=== PATIENT | male | born 1950 | race Caucasian/White ===

== ENCOUNTER 2016-06-24 08:58 | Inpatient (IN) | payer MEDICARE ==
[2016-06-24] VITALS (7 sets, daily range): BP systolic 108–142; BP diastolic 70–82
[~2016-06-24] VITALS: Ht 185.4 cm; Wt 136.1 kg
[~2016-06-24 08:58] MED LIST: ALLO300T2 PO; ALLP100T PO; BSC10SU PR; CLON0.5T3 PO; CLON1TAB36 PO; CPR500T PO; EZET10TA5 PO; FINA5TAB PO; GABA300C PO; GABA600T2 PO; GLIP5TAB26 PO; HYDR-3714 PO; HYDR1TAB8 OP; IBUP-15 PO; LOSA100T16 PO; LOVA40TA2 PO; MELO-195 PO; METF500T8 PO; METH750T3 PO; ONDAN4ODT PO; PANT40SU PO; PNT40TEC PO; POLY17PO23 PO; SILO8CAP PO; SITA100T PO; TIZA4TAB55 PO; TIZANDINE; TMSL.4C PO; TRAM1TAB7 PO
[2016-06-24 09:17] LABS: BASOPHILS % (AUTO) 0 % (0-10); EOSINOPHILS # (AUTO) 0.1 10^3/uL (0.0-0.3); EOSINOPHILS % (AUTO) 1 % (0-10); LYMPHOCYTES # (AUTO) 0.5 X 10^3 (1.0-4.0); LYMPHOCYTES % (AUTO) 4 % (12-44); MEAN CORPUSCULAR HEMOGLOBIN 31 PG (25-34); MEAN CORPUSCULAR HGB CONC 34 G/DL (32-36); MEAN CORPUSCULAR VOLUME 90 FL (80-99); MEAN PLATELET VOLUME 11.7 FL (7.4-10.4); MONOCYTES # (AUTO) 1.1 X 10^3 (0.0-1.0); MONOCYTES % (AUTO) 9 % (0-12); NEUTROPHILS # (AUTO) 10.9 X 10^3 (1.8-7.8); NEUTROPHILS % (AUTO) 86 % (42-75); PLATELET COUNT 281 10^3/uL (130-400); RED BLOOD COUNT 4.89 10^6/uL (4.35-5.85); RED CELL DISTRIBUTION WIDTH 17.1 % (10.0-14.5); WHITE BLOOD COUNT 12.6 10^3/uL (4.3-11.0)
[2016-06-24] MEDS ORDERED: HEParin DRIP 25000 UNIT/500ML 500 ML IV ONE ×2 (09:25)
[2016-06-24] MEDS ORDERED: CLOPIDOGREL 300 MG (PLAVIX) TABLET PO ONE ×2 (09:26→09:30)
[2016-06-24] MEDS ORDERED: HEParin 1000 UNIT/ML (10ML VIAL) FOR BOLUS IV ONE (09:30)
[2016-06-24] MEDS ORDERED: fentaNYL INJECTION 100 MCG/2 ML AMP IVP ONE (09:30)
[2016-06-24] MEDS ORDERED: ONDANSETRON 4 MG/2 ML (SDV) Z0FRAN IVP ONE (09:30)
[2016-06-24] MEDS ORDERED: METO-272 PO (09:40)
[2016-06-24] MEDS ORDERED: ASPI-586 PO (09:40)
[2016-06-24] MEDS ORDERED: TAMS0.4C98 PO (09:40)
[2016-06-24] MEDS ORDERED: METF-479 PO (09:40)
--- NOTE | 2016-06-24 09:41 | ED Chest Pain ---
General Chief Complaint: Chest Pain Stated Complaint: CHEST PAIN Source: patient, EMS, old records History of Present Illness Time seen by provider: 08:48 Initial Comments This 66-year-old gentleman with known coronary artery disease presents to the emergency room with chest pain. He woke this morning at about 03:00 with vomiting and diarrhea. This is not unusual for him as he has gastroparesis and takes metformin. However, between 06:00 and 07:00 he developed pain across his lower chest. Pain radiated into the upper back and neck. He has an unusual rhythm as captured by EMS. It appears to be a combination of sinus tachycardia and very frequent PVCs. He was given nitroglycerin by EMS without resolution of pain. He also received morphine. Aspirin was given and promptly vomited. A second dose was given which he kept down. Patient had a cardiac catheterization at this facility in 2013 showing significant multivessel disease. He was transferred to [place] for evaluation for CABG. CABG was not performed but he has multiple stents. Patient reports four total stents. Pain on assessment is rated as 5 or 6 and he has minimal residual nausea. Patient has multiple comorbidities including diabetes, hypertension, and hyperlipidemia. Allergies and Home Medications Allergies Coded Allergies: No Known Drug Allergies (Unverified , 11/02/11) Home Medications Allopurinol 300 Mg Tab 300 MG PO DAILY (Reported) Aspirin 81 Mg Tablet.dr 81 MG PO DAILY (Reported) Clonazepam 1 Mg Tablet 1 MG PO HS (Reported) Ezetimibe 10 Mg Tablet 10 MG PO HS (Reported) Finasteride 5 Mg Tablet 5 MG PO DAILY (Reported) Gabapentin 300 Mg Capsule 300 MG PO TID (Reported) Glipizide 5 Mg Tab.er.24 5 MG PO DAILY (Reported) Hydrocodone Bit/Acetaminophen 1 Tab Tablet 1 TAB PO BID PRN PRN PAIN (Reported) NEEDED FOR PAIN 5-325MG TABLET Losartan Potassium 100 Mg Tablet 100 MG PO DAILY (Reported) Lovastatin 40 Mg Tablet 40 MG PO HS (Reported) Meloxicam 15 Mg Tablet 15 MG PO DAILY (Reported) Metformin HCl 1,000 Mg Tab.er.24 1,000 MG PO BID (Reported) PT. TAKES IN THE EVENING Metformin Hcl 500 Mg Tab.sr.24h 1,000 MG PO BID (Reported) TAKES 2 (500MG) TABLETS TWICE DAILY Methocarbamol 750 Mg Tablet 750 MG PO Q6H PRN PRN MUSCLE SPASMS (Reported) NEEDED FOR MUSCLE SPASMS Metoprolol Succinate 50 Mg Tab.er.24h #90 50 MG PO DAILY (Reported) Pantoprazole Sodium 40 Mg Tablet.dr 40 MG PO DAILY (Reported) Sitagliptin Phosphate 100 Mg Tablet 100 MG PO DAILY (Reported) Tamsulosin HCl 0.4 Mg Cap 0.4 MG PO HS (Reported) Tizanidine Hcl 4 Mg Tablet 4 MG PO BID PRN PRN MUSCLE SPASMS (Reported) NEEDED FOR MUSCLE SPASMS Review of Systems Constitutional: no symptoms reported EENTM: No Symptoms Reported Respiratory: No Symptoms Reported Cardiovascular: See HPI Gastrointestinal: See HPI Genitourinary: No Symptoms Reported Musculoskeletal: see HPI Skin: no symptoms reported Psychiatric/Neurological: No Symptoms Reported Endocrine: No Symptoms Reported Past Roadyms-Zerpmz-Qzstfb Hx Immunizations Up To Date Date of Influenza Vaccine: Jan 30, 2013 Surgeries HX Surgeries: Yes (lumbar fusion L2-S1 06/07/08, lumbar disk removed 1985) Surgeries: Coronary Stent Respiratory Hx Respiratory Disorders: No Cardiovascular Hx Cardiac Disorders: Yes Cardiac Disorders: Coronary Artery Disease, High Cholesterol, Hypertension Neurological Hx Neurological Disorders: Yes (arachnoiditis causing frequent cramping, gastroparesis) Genitourinary Hx Genitourinary Disorders: Yes Genitourinary Disorders: Kidney Stones Gastrointestinal Hx Gastrointestinal Disorders: Yes (gastroparesis) Gastrointestinal Disorders: Gastroesophageal Reflux, Ulcer Musculoskeletal Hx Musculoskeletal Disorders: Yes Musculoskeletal Disorders: Chronic Back Pain Endocrine Hx Endocrine Disorders: Yes Endocrine Disorders: Diabetes, Non-Insulin dep HEENT HX ENT Disorders: No Cancer Hx Cancer: No Psychosocial Behavioral Health Disorders: Depression Integumentary HX Skin/Integumentary Disorder: No Blood Transfusions Hx Blood Disorders: No Family Medical History Significant Family History: No Pertinent Family Hx Family Medial History: Family history: Cardiovascular disease Family history: Hypertension 03 MOTHER Family history: Osteoporosis 03 MOTHER Stroke 03 FATHER Physical Exam Vital Signs Vital Sign - Last 12Hours Capillary Refill : General Appearance: No Apparent Distress WD/WN HEENT: PERRL/EOMI Normal ENT Inspection Neck: Normal Inspection Respiratory: Lungs Clear Normal Breath Sounds No Accessory Muscle Use No Respiratory Distress Cardiovascular: No Edema No Murmur Irregularly Irregular Tachycardia Gastrointestinal: Normal Bowel Sounds Non Tender Soft Extremity: Normal Inspection No Pedal Edema Neurologic/Psychiatric: Alert Oriented x3 No Motor/Sensory Deficits Normal 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 Norm as Tested Skin: Normal Color Warm/Dry Progress/Results/Core Measures Results/Orders Lab Results Laboratory Tests Test 06/24/16 09:08 06/24/16 09:30 Range/Units Anisocytosis SLIGHT Band Neutrophils 17 % Basophils # (Auto) 0.0 0.0-0.1 10^3/uL Basophils % (Manual) 0 % Basophils (%) (Auto) 0 0-10 % Eosinophils # (Auto) 0.1 0.0-0.3 10^3/uL Eosinophils % (Manual) 0 % Eosinophils (%) (Auto) 1 0-10 % Hematocrit 44 40-54 % Hemoglobin 14.9 13.3-17.7 G/DL Lymphocytes # (Auto) 0.5 L 1.0-4.0 X 10^3 Lymphocytes % (Manual) 4 % Lymphocytes (%) (Auto) 4 L 12-44 % Mean Corpuscular Hemoglobin 31 25-34 PG Mean Corpuscular Hemoglobin Concent 34 32-36 G/DL Mean Corpuscular Volume 90 80-99 FL Mean Platelet Volume 11.7 H 7.4-10.4 FL Monocytes # (Auto) 1.1 H 0.0-1.0 X 10^3 Monocytes % (Manual) 4 % Monocytes (%) (Auto) 9 0-12 % Neutrophils # (Auto) 10.9 H 1.8-7.8 X 10^3 Neutrophils % (Manual) 75 % Neutrophils (%) (Auto) 86 H 42-75 % Platelet Count 281 130-400 10^3/uL Poikilocytosis SLIGHT Red Blood Count 4.89 4.35-5.85 10^6/uL Red Cell Distribution Width 17.1 H 10.0-14.5 % White Blood Count 12.6 H 4.3-11.0 10^3/uL Activated Partial Thromboplast Time 20 L 24-35 SEC Alanine Aminotransferase (ALT/SGPT) 46 0-55 U/L Albumin 4.1 3.2-4.5 G/DL Alkaline Phosphatase 76 40-136 U/L Anion Gap 12 5-14 MMOL/L Aspartate Amino Transf (AST/SGOT) 40 H 5-34 U/L BUN/Creatinine Ratio 20 Blood Urea Nitrogen 31 H 7-18 MG/DL Calcium Level 8.9 8.5-10.1 MG/DL Carbon Dioxide Level 17 L 21-32 MMOL/L Chloride Level 111 H 98-107 MMOL/L Creatinine 1.56 H 0.60-1.30 MG/DL Estimat Glomerular Filtration Rate 45 Glucose Level 255 H 70-105 MG/DL INR Comment 1.0 0.8-1.4 Magnesium Level 1.6 L 1.8-2.4 MG/DL Myoglobin 502.2 H 10.0-92.0 NG/ML Potassium Level 4.8 3.6-5.0 MMOL/L Prothrombin Time 13.3 12.2-14.7 SEC Sodium Level 140 135-145 MMOL/L Total Bilirubin 0.5 0.1-1.0 MG/DL Total Protein 7.0 6.4-8.2 G/DL Troponin I < 0.30 <0.30 NG/ML My Orders Orders-BELEN WYLIE MD Cbc With Automated Diff (06/24/16 09:06) Magnesium (06/24/16 09:06) Chest 1 View, Ap/Pa Only (06/24/16 09:06) Ekg Tracing (06/24/16 09:06) Cardiac Profile 1 (06/24/16 09:06) Comprehensive Metabolic Panel (06/24/16 09:06) Myoglobin Serum (06/24/16 09:06) Protime With Inr (06/24/16 09:06) Partial Thromboplastin Time (06/24/16 09:06) O2 (06/24/16 09:06) Monitor-Rhythm Ecg Trace Only (06/24/16 09:06) Lipid Panel (06/25/16 06:00) Saline Lock/Iv-Start (06/24/16 09:06) Manual Differential (06/24/16 09:08) Heparin Drip 23959 Unit/500ml (Heparin (06/24/16 09:25) Heparin (Bolus Per Protocol) (Heparin (B (06/24/16 09:30) Clopidogrel Tablet (Plavix Tablet) (06/24/16 09:30) Ekg Tracing (06/24/16:26) Heparin Drip [id number] Unit/500ml (Heparin (06/24/16 09:25) Ondansetron Injection (Zofran Injectio (06/24/16 09:30) Clopidogrel Tablet (Plavix Tablet) (06/24/16 09:26) Fentanyl Injection (Sublimaze Injection (06/24/16 09:30) Lidocaine 1% Injection (Xylocaine 1% Inj (06/24/16 10:27) Midazolam Injection (Versed Injection) (06/24/16 10:27) Fentanyl Injection (Sublimaze Injection (06/24/16 10:27) Heparin (Bolus Per Protocol) (Heparin (B (06/24/16 10:27) Ns Iv 1000 Ml (Sodium Chloride 0.9%) (06/24/16 10:27) Heparin ([facility]) (Heparin ([facility])) (06/24/16 10:27) Medications Given in ED Current Medications Medications Dose Ordered Sig/Kamari Route Start Time Stop Time Status Last Admin Dose Admin Clopidogrel Bisulfate 600 mg ONCE ONCE PO 06/24/16 09:30 06/24/16 09:31 DC 06/24/16 09:37 600 MG Fentanyl Citrate 75 mcg ONCE ONCE IVP 06/24/16 09:30 06/24/16 09:31 DC 06/24/16 09:43 75 MCG Heparin Sodium (Porcine) HEPARIN FULL PROTOC... ONCE ONCE IV 06/24/16 09:30 06/24/16 09:31 DC 06/24/16 09:43 5,000 UNIT Heparin Sodium/ Dextrose 500 ml @ 0 mls/hr Q0M ONCE IV 06/24/16 09:25 06/24/16 09:27 DC 06/24/16 09:35 0 MLS/HR Vital Signs/I&O Vital Sign - Last 12Hours 06/24/16 06/24/16 06/24/16 09:03 09:03 09:03 Temp 98.7 Pulse 69 Resp 18 B/P Pulse Ox 97 97 O2 Delivery Nasal Cannula Nasal Cannula O2 Flow Rate 2 2 2 Progress Note #1: Time: 09:35 Progress Note Patient has been seen and evaluated. Rhythm strips from EMS and EKGs in the ER have been reviewed. Patient has an unusual rhythm that appears to be a combination of sinus tachycardia and very frequent PVCs. Rhythm has been reviewed with Dr. Berg who plans to present to the emergency room soon. Patient received morphine, Zofran, and aspirin by EMS. He still rates his pain as 5 or 6. Fentanyl has been ordered for further pain management. At Dr. Berg's request, the patient will be given Plavix 600 mg as well as started on a heparin drip. An additional's dose of Zofran will also be given. Progress Note #2: Time: 10:24 Progress Note Initial troponin was negative. Dr. Berg has been to the emergency room to evaluate patient and discuss options. Plan is for transfer to [facility] for angiography. Patient is at high risk with his heart disease, comorbidities, and unusual rhythm issues in the context of persistent chest pain. Patient consented after explanation of risks and benefits by Dr. Berg. Patient has been in persistent sinus tachycardia for at least 30 minutes. ECG EKG #1: EKG Time: 09:03 Rhythm: S.Tach Comment Sinus tachycardia with frequent PVCs. No definitive ST elevation or depression. EKG #2: EKG Time: 09:14 Rate: 77 Comment Probable sinus rhythm with frequent PVCs. No specific ST elevation or depression. Diagnostic Imaging Diagonstic Imaging: Xray Plain Films/CT/US/NM/MRI: chest Comments NAME: [facility] REC#: [id number] PT STATUS: REG ER : 1950 PHYSICIAN: BELEN WYLIE MD ADMIT DATE: 06/24/16/ER Signed Date of Exam: 06/24/16 CHEST 1 VIEW, AP/PA ONLY INDICATION: Chest wall pain Frontal chest obtained at 9:32 a.m. and compared to 05/18/13. Heart and mediastinal silhouette are normal in appearance. The lungs are clear. There is no pneumothorax or pleural fluid. IMPRESSION: Negative chest. Dictated by: Dictated on workstation # [id number] Dict: 06/24/16 0939 Trans: 06/24/16 0957 CONCHA [id number] Interpreted by: JOSE FREDERICK MD Electronically signed by:JOSE FREDERICK MD 06/24/16 0959 Departure Impression Impression: Primary Impression: Chest pain Qualified Code: R07.9 - Chest pain, unspecified Additional Impressions: Sinus tachycardia PVCs (premature ventricular contractions) Coronary artery disease Qualified Code: I25.10 - Atherosclerotic heart disease of [place] coronary artery without angina pectoris Disposition: ADMITTED INPATIENT Condition: Stable Decision to Admit Reason: Admit from ER (General) Decision to Admit/Date: Jun 24, 2016 Time/Decision to Admit Time: 09:00 Departure-Patient Inst. Referrals: RINKU FULLER DO (PCP/Family) Primary Care Physician BELEN WYLIE MD Jun 24, 2016 09:41
[2016-06-24 09:49] LABS: PROTHROMBIN TIME PATIENT 13.3 SEC (12.2-14.7)
[2016-06-24 09:54] LABS: ALANINE AMINOTRANSFERASE 46 U/L (0-55); ALBUMIN 4.1 G/DL (3.2-4.5); ANION GAP 12 MMOL/L (5-14); ASPARTATE AMINO TRANSFERASE 40 U/L (5-34); BILIRUBIN,TOTAL 0.5 MG/DL (0.1-1.0); BLOOD UREA NITROGEN 31 MG/DL (7-18); BUN/CREATININE RATIO 20; CALCIUM 8.9 MG/DL (8.5-10.1); CARBON DIOXIDE 17 MMOL/L (21-32); CHLORIDE 111 MMOL/L (98-107); CREATININE SERUM 1.56 MG/DL (0.60-1.30); GFR ESTIMATED 45; GLUCOSE 255 MG/DL (70-105); MAGNESIUM 1.6 MG/DL (1.8-2.4); POTASSIUM 4.8 MMOL/L (3.6-5.0); SODIUM 140 MMOL/L (135-145)
[2016-06-24 10:01] LABS: MYOGLOBIN SERUM 502.2 NG/ML (10.0-92.0)
[2016-06-24 10:07] LABS: ANISOCYTOSIS SLIGHT; BAND NEUTROPHILS 17 %; BASOPHILS % (MANUAL) 0 %; EOSINOPHILS % (MANUAL) 0 %; LYMPHOCYTES % (MANUAL) 4 %; NEUTROPHILS % (MANUAL) 75 %; POIKILOCYTOSIS SLIGHT
[2016-06-24] MEDS ORDERED: HEParin 1000 UNIT/ML (10ML VIAL) FOR BOLUS ONE (10:27)
[2016-06-24] MEDS ORDERED: MIDAZOLAM 5 MG/5 ML (VERSED) VIAL ONE (10:27)
[2016-06-24] MEDS ORDERED: HEParin (CATH LAB) 2,000 ML IV ONE (10:27)
[2016-06-24] MEDS ORDERED: NS IV 1000 ML 1,000 ML ONE (10:27)
[2016-06-24] MEDS ORDERED: LIDOCAINE 1% INJ 20 ML (XYLOCAINE) VIAL ONE (10:27)
[2016-06-24] MEDS ORDERED: fentaNYL INJECTION 100 MCG/2 ML AMP ONE (10:27)
[2016-06-24] MEDS ORDERED: VERAPAMIL 5 MG/2 ML (CALAN) VIAL IV ONE (10:30)
[2016-06-24] MEDS ORDERED: NITROGLYCERIN DRIP 25 MG/D5W 250 ML IV ONE (10:30)
--- NOTE | 2016-06-24 10:31 | Cardiac Procedure Note-CS/ASA ---
Pre-Procedure Note Pre-Op Procedure Note H&P Reviewed The H&P was reviewed, patient examined and no changes noted. Date H&P Reviewed: Jun 24, 2016 Time H&P Reviewed: : Conscious Sedation Pre-Proced Time Reviewed: ASA Class: 3 Airway Mallampati Classification: ([place] appropriate class) I. II. III, IV Lungs Heart ASA score ASA 1: a normal healthy patient ASA 2: a patient with a mild systemic disease (mid diabetes, controlled hypertension, obesity ASA 3: a patient with a severe systemic disease that limits activity (angina , COPD, prior Myocardial infarction) ASA 4: a patient with an incapacitating disease that is a constant threat to life (CHF, renal failure) ASA 5: a moribund patient not expected to survive 24 hrs. (ruptured aneurysm) ASA 6: a declared brain patient whose organs are being harvested. For emergent operations, add the letter E after the classification Grade 1 Sedation Plan: Analgesia, Amnesia, Plan communicated to team members, Discussed options with patient/fam, Discussed risks with patient/fam Note The patient is an appropriate candidate to undergo the planned procedure, sedation, and anesthesia. The patient immediately re-assessed prior to indication. Jennifer YATES MD Jun 24, 2016 10:31
--- NOTE | 2016-06-24 10:51 | History & Physicial-Cardiolgy ---
HPI-Cardiology Cardiology Consultation: Date of Consultation 06/24/16 Date of Admission Attending Physician Admitting Physician Sharron Parsons DO Consulting Physician Jennifer YATES MD HPI: Chief Complaint: chest pain this is a 66-year-old gentleman with history of diabetes, hypertension and hyperlipidemia. He has known history of coronary artery disease with multiple stents 3 years ago in [facility]. He sees Dr. Conklin as an outpatient. He had a stress test done in December 2015 which according to the patient was within normal limits. He presents with continuous chest pain since 6 a.m. this morning. It was associated with nausea and vomiting. Initial chest pain severe at the was 6/10. It is similar to the chest pain he had in 2014. When I saw him in the emergency department, his chest pain was a little better but still there. The patient denies any smoking and tells me that he is compliant with his medications. Review of Systems-Cardiology Review of Systems Constitutional: No As described under HPI, No no symptoms reported, No chills, No fever, No lightheadedness, No malaise, No tiredness, No weight loss, No weight gain, No other Eyes: No As described under HPI, No no symptoms reported, No blindness, No blurred vision, No contact lenses, No drainage, No decreased acuity, No foreign body sensation, No glasses, No inflammation, No pain, No photophobia, No previous injury, No shadows, No tunnel vision, No other, No vision change Ears/Nose/Throat: No As described under HPI, No no symptoms reported, No chronic hearing loss, No epistaxis, No ear discharge, No ear pain, No loose teeth, No mouth pain, No mouth swelling, No nasal drainage, No nose pain, No recent hearing loss, No throat pain, No throat swelling, No ulcerations, No other Respiratory: No no symptoms reported, No As described under HPI, No cough, No orthopnea, No shortness of breath, No SOB with excertion, No SOB at rest, No stridor, No wheezing, No other Cardiovascular: chest pain Gastrointestinal: No no symptoms reported, No As described under HPI, No abdomen distended, No abdominal pain, No blood streaked bowels, No constipation , No diarrhea, No difficulty swallowing, No nausea, No poor appetite, No poor fluid intake, No rectal bleeding, No vomiting, No other, No nausea/vomiting/ diarrhea, No stool coloration changes Genitourinary: No no symptoms reported, No As described under HPI, No burning, No dysuria, No discharge, No frequency, No flank pain, No hematuria, No incontinence, No pain, No urgency, No other, No urine frequency changes, No urine coloration changes Musculoskeletal: No no symptoms reported, No As describe under HPI, No back pain, No gout, No joint pain, No joint swelling, No muscle pain, No muscle stiffness, No neck pain, No other Skin: No no symptoms reported, No As described under HPI, No change in color, No change in hair/nails, No dryness, No lesions, No lumps, No rash, No other, No skin related problems, No ulcerations, No rash on exposed areas, No ulcerations on exposed areas Psychiatric/Neurological: No As described under HPI, No anxiety, No depression , No emotional problems, No focal weakness, No headache, No no symptoms reported , No numbness, No other, No pre-existing deficit, No seizure, No syncope, No tingling, No tremors, No weakness RHN-Yvvvkb-Jphrai Hx Patient Social History Alcohol Use: Denies Use Recreational Drug Use: No Smoking Status: Never a Smoker Recent Foreign Travel: No Recent Infectious Disease Expo: No Immunizations Up To Date Tetanus Booster (TDap): Unknown Date of Influenza Vaccine: Apr 01, 2016 Past Medical History PMH As described under Assessment. Family Medical History Family History: Family history: Cardiovascular disease Family history: Hypertension 03 MOTHER Family history: Osteoporosis 03 MOTHER Stroke 03 FATHER Allergies and Home Medications Allergies Coded Allergies: No Known Drug Allergies (Unverified , 11/02/11) Home Medications Allopurinol 300 Mg Tab 300 MG PO DAILY (Reported) Aspirin 81 Mg Tablet.dr 81 MG PO DAILY (Reported) Clonazepam 1 Mg Tablet 1 MG PO HS (Reported) Ezetimibe 10 Mg Tablet 10 MG PO HS (Reported) Finasteride 5 Mg Tablet 5 MG PO DAILY (Reported) Gabapentin 300 Mg Capsule 300 MG PO TID (Reported) Glipizide 5 Mg Tab.er.24 5 MG PO DAILY (Reported) Hydrocodone Bit/Acetaminophen 1 Tab Tablet 1 TAB PO BID PRN PRN PAIN (Reported) NEEDED FOR PAIN 5-325MG TABLET Losartan Potassium 100 Mg Tablet 100 MG PO DAILY (Reported) Lovastatin 40 Mg Tablet 40 MG PO HS (Reported) Meloxicam 15 Mg Tablet 15 MG PO DAILY (Reported) Metformin HCl 1,000 Mg Tab.er.24 1,000 MG PO BID (Reported) PT. TAKES IN THE EVENING Metformin Hcl 500 Mg Tab.sr.24h 1,000 MG PO BID (Reported) TAKES 2 (500MG) TABLETS TWICE DAILY Methocarbamol 750 Mg Tablet 750 MG PO Q6H PRN PRN MUSCLE SPASMS (Reported) NEEDED FOR MUSCLE SPASMS Metoprolol Succinate 50 Mg Tab.er.24h #90 50 MG PO DAILY (Reported) Pantoprazole Sodium 40 Mg Tablet.dr 40 MG PO DAILY (Reported) Sitagliptin Phosphate 100 Mg Tablet 100 MG PO DAILY (Reported) Tamsulosin HCl 0.4 Mg Cap 0.4 MG PO HS (Reported) Tizanidine Hcl 4 Mg Tablet 4 MG PO BID PRN PRN MUSCLE SPASMS (Reported) NEEDED FOR MUSCLE SPASMS Physical Exam-Cardiology Physical Exam Vital Signs/I&O Vital Sign - Last 12Hours 06/24/16 06/24/16 06/24/16 09:03 09:03 09:03 Temp 98.7 Pulse 69 Resp 18 B/P Pulse Ox 97 97 O2 Delivery Nasal Cannula Nasal Cannula O2 Flow Rate 2 2 2 Capillary Refill : Less Than 3 Seconds Constitutional: No appears stated age, No AAO x 3, No apparent distress, No PERRL, No well-developed, No well-nourished, No other HEENT: No PERRL, No normal ENT inspection, No TMs normal, No pharynx normal, No scleral icterus (R), No scleral icterus (L), No pale conjunctivae (R), No pale conjunctivae (L), No photophobia, No TM abnormal (R), No TM abnormal (L), No pharyngeal erythema, No tonsillar exudate, No other, No discharge, No EOMI, No hearing is well preserved, No hard of hearing, No oral hygience is good, No ulceration, No xanthelasmas are seen Neck: No non-tender, No full range of motion, No supple, No normal inspection, No carotid bruit, No limited range of motion, No lymphadenopathy (R), No lymphadenopathy (L), No tender lateral, No tender midline, No thyromegaly, No other, No carotid pulses are 2 + bilaterally, No with good upstrokes Respiratory: No accessory muscle use, No respiratory distress, No chest tender , No chest expansion is symmetric, No chest is bilaterally symmetric, No lungs clear to percussion, No lungs clear to auscultation, No crackles, No rhonchi, No rales, No stridor, No wheezing, No pleural rub, No other Cardiovascular: No regular rate-rhythm, No irregularly irregular, No extra beats, No parasternal heave is noted, No JVD, No edema, No bradycardia, No tachycardia, No point of maximal impulse, No cardiac thrills are palpable, No S1 and S2, No gallop/S3, No gallop/S4, No diastolic murmur, No systolic murmur, No friction rub, No click, No other Gastrointestinal: No tender, No soft, No round, No distended, No pulsatile mass , No organomegaly, No guarding, No rebound, No tenderness, No hernia, No mass, No audible bowel sounds, No abnormal bowel sounds, No abdominal bruits, No spleenomegaly, No other Rectal: deferred Extremities: No normal range of motion, No non-tender, No normal inspection, No pedal edema, No calf tenderness, No normal capillary refill, No pelvis stable , No calf tenderness, No inflammation, No pedal edema, No slow capillary refill , No swelling, No other, No abrasion, No clubbing, No cyanosis, No ecchymosis, No laceration, No no lower extremity edema bilateral, No significant edema, No tenderness, No wound Neurologic/Psychiatric: No office rn II-XII nml as tested, No no motor/sensory deficits, No alert, No normal mood/affect, No oriented x 3, No abnormal cerebellar tests, No abnormal office rn II-XII, No abnormal gait, No aphasia, No EOM palsy, No facial droop, No motor weakness, No sensory deficit, No depressed affect, No disoriented x 3, No other, No grossly intact, No power is 5/5 both on sides Skin: No normal color, No warm/dry, No cyanosis, No cool, No diaphoresis, No damp, No ecchymosis, No jaundice, No mottled, No pallor, No rash, No tattoos/ piercings, No ulcerations, No rash on exposed areas, No ulcerations on exposed areas, No other Data Review Labs Laboratory Tests 06/24/16 09:08: Anisocytosis SLIGHT, Band Neutrophils 17, Basophils # (Auto) 0.0, Basophils % ( Manual) 0, Basophils (%) (Auto) 0, Eosinophils # (Auto) 0.1, Eosinophils % ( Manual) 0, Eosinophils (%) (Auto) 1, Hematocrit 44, Hemoglobin 14.9, Lymphocytes # (Auto) 0.5L, Lymphocytes % (Manual) 4, Lymphocytes (%) (Auto) 4L, Mean Corpuscular Hemoglobin 31, Mean Corpuscular Hemoglobin Concent 34, Mean Corpuscular Volume 90, Mean Platelet Volume 11.7H, Monocytes # (Auto) 1.1H, Monocytes % (Manual) 4, Monocytes (%) (Auto) 9, Neutrophils # (Auto) 10.9H, Neutrophils % (Manual) 75, Neutrophils (%) (Auto) 86H, Platelet Count 281, Poikilocytosis SLIGHT, Red Blood Count 4.89, Red Cell Distribution Width 17.1H, White Blood Count 12.6H 06/24/16 09:30: Activated Partial Thromboplast Time 20L, Alanine Aminotransferase (ALT/SGPT) 46 , Albumin 4.1, Alkaline Phosphatase 76, Anion Gap 12, Aspartate Amino Transf ( AST/SGOT) 40H, BUN/Creatinine Ratio 20, Blood Urea Nitrogen 31H, Calcium Level 8.9, Carbon Dioxide Level 17L, Chloride Level 111H, Creatinine 1.56H, Estimat Glomerular Filtration Rate 45, Glucose Level 255H, INR Comment 1.0, Magnesium Level 1.6L, Myoglobin 502.2H, Potassium Level 4.8, Prothrombin Time 13.3, Sodium Level 140, Total Bilirubin 0.5, Total Protein 7.0, Troponin I < 0.30 ECG Impression ECG Comment Initial EMS EKG: sinus tachycardia, with frequent PVCs, short run of nonsustained VT. ST elevation noted in lead 3, nondiagnostic ST deviation in lead 2 and aVF. A/P-Cardiology Assessment/Admission Diagnosis acute coronary syndrome, nonsustained VT, diabetes Plan prolonged chest pain with significant EKG changes and nonsustained VT. Although first set of troponin is negative; likelihood of acute coronary syndrome is very high considering that he is diabetic with similar chest pain and history of multiple PCI. Bolus aspirin, Plavix. Start heparin. Informed consent taken for urgent/emergent coronary angiography with possible PCI. All risks and complications were explained in detail including bleeding, vascular damage, CVA, SC and even . Patient accepted all risks and complication and would like to proceed with the procedure. Jennifer YATES MD Jun 24, 2016 10:51
[2016-06-24] MEDS ORDERED: NS IV 1000 ML 1,000 ML IV SCH (11:00)
[2016-06-24] MEDS ORDERED: ADENOSINE 3 MG/1 ML (ADENOSCAN) 30ML VIAL IV ONE ×2 (11:11→11:31)
[2016-06-24] MEDS: NS IV 1000 ML 1,000 ML IV SCH (13:30)
[2016-06-24] MEDS ORDERED: PATIENT MAY USE OWN MEDS, ALL PO SCH (13:30)
--- NOTE | 2016-06-24 13:35 | Progress Note-Post Operative ---
Post-Operative Progess Note Pre-Operative Diagnosis acute coronary syndrome Post-Operative Diagnosis PCI to mid RCA and Mid LCX with MISHEL Post-Op Procedure Note Date of Procedure: Jun 24, 2016 Name of Procedure: coronary angiogram, LHC, FFR, PCI Procedure Note/Findings Severe mid RCA stenosis and mid LCX stenosis Anesthesia Type local anesthesia and conscious sedation Estimated blood loss (mL): 20 ml Packing: none Specimen(s) collected none Jennifer YATES MD Jun 24, 2016 13:34
[2016-06-24] MEDS ORDERED: meTOprolol TARTRATE 50 MG (LOPRESSOR) TAB PO SCH (21:00)
[2016-06-24] MEDS ORDERED: ATORVASTATIN 80 MG (LIPITOR) TABLET PO SCH (21:00)
[2016-06-24] MEDS ORDERED: clonazePAM 1 MG (KlonoPIN) TAB PO SCH (21:00)
[2016-06-24] MEDS: GABAPENTIN 300 MG (NEURONTIN) CAP PO SCH (21:20)
[2016-06-24] MEDS: TICAGRELOR 90 MG TABLET (BRILINTA) PO SCH (21:20)
[2016-06-25] VITALS: BP 118/74
[2016-06-25] MEDS: NS IV 1000 ML 1,000 ML IV SCH ×3 (01:17→19:01)
[2016-06-25 04:00] VITALS: BP 147/88
[2016-06-25 04:10] LABS: RED BLOOD COUNT 4.16 10^6/uL (4.35-5.85); RED CELL DISTRIBUTION WIDTH 13.7 % (10.0-14.5); WHITE BLOOD COUNT 11.2 10^3/uL (4.3-11.0)
[2016-06-25 04:35] LABS: CALCIUM 8.5 MG/DL (8.5-10.1); CREATININE SERUM 1.49 MG/DL (0.60-1.30); POTASSIUM 4.6 MMOL/L (3.6-5.0)
[2016-06-25 04:37] LABS: CHOLESTEROL 147 MG/DL (< 200); DIRECT LDL 83 MG/DL (1-129); TRIGLYCERIDES 208 MG/DL (<150); VLDL CHOLESTEROL 42 MG/DL (5-40)
[2016-06-25 04:49] LABS: TROPONIN I 30.44 NG/ML (<0.30)
[2016-06-25 07:48] VITALS: BP 136/75
[2016-06-25] MEDS ORDERED: GABA-490 PO (08:27)
[2016-06-25] MEDS ORDERED: METF500T8 PO (08:27)
[2016-06-25] MEDS ORDERED: HYDR-3812 PO (08:27)
[2016-06-25] MEDS ORDERED: CLON2TAB3 PO ×2 (08:48)
[2016-06-25] MEDS ORDERED: NITR0.4T39 SL (08:48)
[2016-06-25] MEDS ORDERED: METH500T7 PO (08:52)
[2016-06-25] MEDS ORDERED: meTOprolol TARTRATE 25 MG (LOPRESSOR) TABLET PO NR (09:30)
[2016-06-25] MEDS: ASPIRIN E.C. 81 MG (ECOTRIN) TAB PO SCH (09:59)
[2016-06-25] MEDS: lisINopril 5 MG (PRINIVIL) TABLET PO SCH (09:59)
[2016-06-25] MEDS: TICAGRELOR 90 MG TABLET (BRILINTA) PO SCH ×2 (09:59→21:20)
[2016-06-25] MEDS: GABAPENTIN 300 MG (NEURONTIN) CAP PO SCH (09:59)
[2016-06-25] MEDS ORDERED: METHOCARBAMOL 500 MG (ROBAXIN) TABLET PO PRN (10:00)
[2016-06-25] MEDS ORDERED: NITROGLYCERIN SUBLINGUAL 0.4 MG TAB (NITROSTAT) SL PRN (10:00)
[2016-06-25] MEDS: ENOXAPARIN 40 MG/0.4 ML (LOVENOX) SYR SC SCH (10:12)
[2016-06-25] MEDS ORDERED: HYDROcodone/APAP 5 MG/325 MG (LORTAB) TAB PO PRN (11:00)
[2016-06-25] MEDS ORDERED: clonazePAM 1 MG (KlonoPIN) TAB PO PRN (11:00)
--- NOTE | 2016-06-25 11:02 | Consultation-Hospitalist ---
HPI History of Present Illness: HPI/Chief Complaint CC: Chest pain and CO with subsequent stent placement x 2 HPI: This is a 66yoWM clinic pt of mine for past 12 years with hx of DM, HTN, HLP, and chronic debility due to severe spine disease that presented to ER with chest pain. He sees Dr. Conklin for Cardiology on a regular basis and just recently had an EST 12/15 that was normal per pt. He reported chest pain since 0600 yesterday morning associated with nausea and vomiting. He had non- sustained ventricular tachycardia while in ER and due to risk factors was brought to medical laboratory assistant and two stents were placed, one in circumflex and one in RCA with good results. Pt remains A-fib, vitals stable, Creat 1.49 down from 1.56, sugars in 250s, WBC 11.2 from 12.6, Pt is currently on Aspirin, Brilinta, Lipitor, and Lopressor. etiquette coach: RN states that pt had an CO and two stents placed. Pt will DC tomorrow. Blood sugars are high, and Metformin is being held. Patient Interview: Pt states that he does not have any pain currently. Dr. Fuller discusses continued Cardiology care regarding post-DC plan. Pt is considering switching to a local Hair Rooting Machine Operator. Physical exam stable. Pt asks about safety of blood thinner, and Dr. Fuller reassures pt. Scribed by Aldo Ghosh under the direct supervision of Dr. Fuller. 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) Alcohol Use: Denies Use Recreational Drug Use: No Smoking Status: Never a Smoker Physical Abuse Screen: No Sexual Abuse: No Recent Foreign Travel: No Contact w/other who traveled: No Recent Hopitalizations: Yes (STENTS 2014) Recent Infectious Disease Expo: No Immunizations Up To Date Tetanus Booster (TDap): Unknown Date of Influenza Vaccine: Apr 01, 2016 Seasonal Allergies Seasonal Allergies: No Surgeries HX Surgeries: Yes (lumbar fusion L2-S1 06/07/08, lumbar disk removed 1985) Surgeries: Coronary Stent, Orthopedic (spinal disease) Respiratory Hx Respiratory Disorders: No Cardiovascular Hx Cardiovascular Disorders: Yes Cardiac Disorders: Coronary Artery Disease, High Cholesterol, Hypertension Neurological Hx Neurological Disorders: Yes (arachnoiditis causing frequent cramping, gastroparesis) Reproductive System Hx Reproductive Disorders: No Genitourinary Hx Genitourinary Disorders: Yes Genitourinary Disorders: Prostate Problems, Kidney Stones Gastrointestinal Hx Gastrointestinal Disorders: Yes (gastroparesis) Gastrointestinal Disorders: Gastroesophageal Reflux, Ulcer Musculoskeletal Hx Musculoskeletal Disorders: Yes Musculoskeletal Disorders: Chronic Back Pain Endocrine Hx Endocrine Disorders: Yes Endocrine Disorders: Diabetes, Non-Insulin dep HEENT HX ENT Disorders: No Cancer Hx Cancer: No Psychosocial Hx Psychiatric Problems: No Behavioral Health Disorders: Depression Integumentary HX Skin/Integumentary Disorder: No Blood Transfusions Hx Blood Disorders: No Family Medical History Significant Family History: No Pertinent Family Hx Family Hx: Family history: Cardiovascular disease Family history: Hypertension 03 MOTHER Family history: Osteoporosis 03 MOTHER Stroke 03 FATHER Review of Systems Constitutional: see HPI EENTM: no symptoms reported Respiratory: no symptoms reported Cardiovascular: chest pain Gastrointestinal: no symptoms reported Genitourinary: decreased output Musculoskeletal: back pain Skin: no symptoms reported Psychiatric/Neurological: Depressed All Other Systems Reviewed Negative Unless Noted: Yes Physical Exam Physical Exam Vital Signs Vital Sign - Last 12Hours 06/24/16 12:35 B/P 118/76 Capillary Refill : Less Than 3 Seconds General Appearance: No Apparent Distress WD/WN Eyes: Bilateral Eye Normal Inspection, Bilateral Eye PERRL HEENT: PERRL/EOMI Normal ENT Inspection Pharynx Normal Neck: Full Range of Motion Normal Inspection Non Tender Supple Carotid Bruit Respiratory: Chest Non Tender Lungs Clear Normal Breath Sounds No Accessory Muscle Use No Respiratory Distress Cardiovascular: Regular Rate, Rhythm No Edema No Gallop No JVD No Murmur Normal Peripheral Pulses Gastrointestinal: Normal Bowel Sounds No Organomegaly No Pulsatile Mass Non Tender Soft Back: Normal Inspection No CVA Tenderness No Vertebral Tenderness Extremity: Normal Capillary Refill Normal Inspection Normal Range of Motion Non Tender No Calf Tenderness No Pedal Edema Neurologic/Psychiatric: Alert Oriented x3 No Motor/Sensory Deficits Normal Mood/Affect Skin: Normal Color Warm/Dry Lymphatic: No Adenopathy Results Results/Procedures Lab Laboratory Tests 06/24/16 09:08 06/24/16 09:30 06/25/16 03:40 Assessment/Plan Admission Diagnosis Assessment: Non-sustained ventricular tachycardia with acute myocardial infarction requiring placement of stents in circumflex and RCA DM HTN HLP Chronic debility due to severe spine disease chronic renal insufficiency gout Kidney stones BPH Assessment and Plan Plan: Maintain on Aspirin, Brilinta, Lipitor, and Lopressor Monitor closely due to recent CO and stent placement Restart all home meds except metformin Monitor creatinine Clinical Quality Measures DVT/VTE Risk/Contraindication: Risk Factor Score Per Nursin RFS Level Per Nursing on Admit: 4+=Very High SHARRON FULLER DO Jun 25, 2016 11:01
[2016-06-25 11:22] VITALS: BP 151/82
--- NOTE | 2016-06-25 11:27 | Cardiology Progress Note ---
Cardiology SOAP Progress Note Subjective: No chest pain Objective: I&O/Vital Signs Vital Sign - Last 12Hours 06/25/16 06/25/16 06/25/16 06/25/16 00:00 01:00 04:00 07:00 Temp 97.2 97.0 Pulse 72 68 75 76 Resp 20 18 B/P 118/74 147/88 Pulse Ox 97 98 O2 Delivery Room Air Room Air 06/25/16 06/25/16 07:48 11:22 Temp 97.7 97.9 Pulse 75 69 Resp 16 20 B/P 136/75 151/82 Pulse Ox 95 97 O2 Delivery Room Air Room Air Intake and Output 06/24/16 23:59 Intake Total 1690 ml Output Total 800 ml Balance 890 ml Weight (Pounds): 300 Weight (Ounces): 0.0 Weight (Calculated Kilograms): 136.033178 Constitutional: No appears stated age, No AAO x 3, No apparent distress, No PERRL, No well-developed, No well-nourished, No other Respiratory: No accessory muscle use, No respiratory distress, No chest tender , No chest expansion is symmetric, No chest is bilaterally symmetric, No lungs clear to percussion, No lungs clear to auscultation, No crackles, No rhonchi, No rales, No stridor, No wheezing, No pleural rub, No other Cardiovascular: No regular rate-rhythm, No irregularly irregular, No extra beats, No parasternal heave is noted, No JVD, No edema, No bradycardia, No tachycardia, No point of maximal impulse, No cardiac thrills are palpable, No S1 and S2, No gallop/S3, No gallop/S4, No diastolic murmur, No systolic murmur, No friction rub, No click, No other Gastrointestional: No tender, No soft, No round, No distended, No pulsatile mass, No organomegaly, No guarding, No rebound, No tenderness, No hernia, No mass, No audible bowel sounds, No abnormal bowel sounds, No abdominal bruits, No spleenomegaly, No other Extremities: No normal range of motion, No non-tender, No normal inspection, No pedal edema, No calf tenderness, No normal capillary refill, No pelvis stable , No calf tenderness, No inflammation, No pedal edema, No slow capillary refill , No swelling, No other, No abrasion, No clubbing, No cyanosis, No ecchymosis, No laceration, No no lower extremity edema bilateral, No significant edema, No tenderness, No wound Neurologic/Psychiatric: No drug clerk II-XII nml as tested, No no motor/sensory deficits, No alert, No normal mood/affect, No oriented x 3, No abnormal cerebellar tests, No abnormal drug clerk II-XII, No abnormal gait, No aphasia, No EOM palsy, No facial droop, No motor weakness, No sensory deficit, No depressed affect, No disoriented x 3, No other, No grossly intact, No power is 5/5 both on sides Skin: No normal color, No warm/dry, No cyanosis, No cool, No diaphoresis, No damp, No ecchymosis, No jaundice, No mottled, No pallor, No rash, No tattoos/ piercings, No ulcerations, No rash on exposed areas, No ulcerations on exposed areas, No other Results/Procedures: Labs Laboratory Tests 06/24/16 15:16: Troponin I 34.33*H 06/24/16 21:59: Glucometer 254H 06/25/16 03:40: Troponin I 30.44*H, Anion Gap 12, BUN/Creatinine Ratio 23, Blood Urea Nitrogen 35H, Calcium Level 8.5, Carbon Dioxide Level 16L, Chloride Level 108H, Cholesterol Level 147, Creatinine 1.49H, Estimat Glomerular Filtration Rate 47, Glucose Level 216H, HDL Cholesterol 33L, Hematocrit 38L, Hemoglobin 12.8L, LDL Cholesterol Direct 83, Mean Corpuscular Hemoglobin 31, Mean Corpuscular Hemoglobin Concent 34, Mean Corpuscular Volume 91, Mean Platelet Volume 11.0H, Platelet Count 180, Potassium Level 4.6, Red Blood Count 4.16L, Red Cell Distribution Width 13.7, Sodium Level 136, Triglycerides Level 208H, VLDL Cholesterol 42H, White Blood Count 11.2H A/P: Assessment/Dx: Non-ST elevation [place], refractory to medical therapy, nonsustained VT, diabetes Plan: Non-ST elevation [place] with refractory to medical therapy, severe RCA and left circumflex artery stenosis is noted which was treated with PCI with drug- eluting stents. Successful with no complication. Continue aspirin, ticagrelor , beta mell, CHARLETTE inhibitor and statin. Patient is not complaining of any further chest pain. Heart rate is a little bit elevated. Therefore I will increase the dose of beta mell. I have recommended that the patient stays at least one more day as a stepdown status and hopefully we can discharge in the morning. Jennifer YATES MD Jun 25, 2016 11:27 am
[2016-06-25] MEDS: GABAPENTIN 400 MG (NEURONTIN) CAP PO SCH ×3 (12:54→21:20)
[2016-06-25 16:52] VITALS: BP 137/79
[2016-06-25] MEDS ORDERED: ALFUZOSIN HCL 10 MG TAB (UROXATRAL) PO SCH (18:00)
[2016-06-25 20:00] VITALS: BP 123/64
[2016-06-25] MEDS ORDERED: SIMvastatin 20 MG (ZOCOR) TAB PO SCH (21:00)
[2016-06-25] MEDS ORDERED: clonazePAM 1 MG (KlonoPIN) TAB PO SCH (21:00)
[2016-06-25] MEDS ORDERED: meTOprolol TARTRATE 50 MG (LOPRESSOR) TAB PO SCH (21:00)
[2016-06-26] VITALS: BP 128/65
[2016-06-26 04:00] VITALS: BP 108/60
[2016-06-26] MEDS: NS IV 1000 ML 1,000 ML IV SCH (05:29)
[2016-06-26 08:00] VITALS: BP 148/83
[2016-06-26] MEDS ORDERED: ASPIRIN E.C. 81 MG (ECOTRIN) TAB PO SCH (09:00)
[2016-06-26] MEDS ORDERED: FINASTERIDE (PROSCAR) 5 MG TAB PO SCH (09:00)
[2016-06-26] MEDS ORDERED: MELOXICAM 7.5 MG (MOBIC) TABLET PO SCH (09:00)
[2016-06-26] MEDS ORDERED: meTOproloL SUCCINATE 50 MG (TOPROL XL) TAB PO SCH (09:00)
[2016-06-26] MEDS ORDERED: sitaGLIPtin 50 MG (JANUVIA) TAB PO SCH (09:00)
[2016-06-26] MEDS ORDERED: ALLOPURINOL 300 MG (ZYLOPRIM) TAB PO SCH (09:00)
[2016-06-26] MEDS ORDERED: PANTOPRAZOLE 40 MG (PROTONIX) TAB PO SCH (09:00)
[2016-06-26] MEDS ORDERED: glipiZIDE XL 5 MG (GLUCOTROL XL) TAB PO SCH (09:00)
[2016-06-26] MEDS: lisINopril 5 MG (PRINIVIL) TABLET PO SCH (09:07)
[2016-06-26] MEDS: ASPIRIN E.C. 81 MG (ECOTRIN) TAB PO SCH (09:07)
[2016-06-26] MEDS: GABAPENTIN 400 MG (NEURONTIN) CAP PO SCH (09:08)
[2016-06-26] MEDS: TICAGRELOR 90 MG TABLET (BRILINTA) PO SCH (09:08)
[2016-06-26] MEDS: ENOXAPARIN 40 MG/0.4 ML (LOVENOX) SYR SC SCH (10:20)
[2016-06-26] MEDS ORDERED: TICA90TA PO (11:20)
--- NOTE | 2016-06-26 11:23 | Discharge Inst-Post CATH ---
Discharge Inst-CATH Post Cardiac Cath D/C Inst Follow Up/Plan see Dr Berg in one week CARDIAC CATH DISCHARGE INSTRUCTIONS *Hold Metformin for 48 hours post heart cath. ACTIVITY * Go Home directly and rest. * Limit activity of the leg (or wrist if it was used) for 7 days including aerobics, swimming, jogging, bicycling, etc. * Restrict stair-climbing for 7 days if possible, if not, climb up with your non -cath leg, then bring together on the same step. * Avoid lifting, pushing, pulling or excessive movement of the affected extremity for 7 days. * Customary sexual activity may be resumed after 2 days-use caution not to use a position that strains or causes pain to the affected extremity. * No driving for 24 hours. * NO SMOKING. * Avoid straining for bowel movements for 7 days. * Gentle walking on level ground is allowed. * Returning to work will depend on the type of procedure and the results. Your doctor will discuss this with you. CALL YOUR DOCTOR FOR ANY OF THE FOLLOWING: *If bleeding from the puncture site occurs- Apply gentle pressure to site with clean cloth and call your doctor or EMS. * If a knot or lump forms under the skin, increases in size, or causes pain. * If bruising appears to be worsening or moving further down your leg instead of disappearing. * Temperature above 101 F. CARE OF YOUR GROIN INCISION; * Bruising or purple discoloration of the skin near the puncture site is common. * You may shower only, no bathtub bathing for 5 days. Be careful to avoid slipping as your leg may feel stiff. * If a closure device was used on your femoral artery, please see the attached guide regarding care of the device and your leg. * REMOVE the dressing from your groin the next day after your procedure in the shower. CARE OF YOUR WRIST INCISION; * Bruising or purple discoloration of the skin near the puncture site is common. * You may shower. * DO NOT submerge wrist. * Remove dressing in 24 hours. Jennifer BERG MD Jun 26, 2016 11:23
--- NOTE | 2016-06-26 11:28 | Cardiology Discharge Summary ---
Diagnosis/Chief Complaint Date of Admission Jun 25, 2016 at 8:32 am Date of Discharge 06/26/2016 Admission Diagnosis non-ST elevation [place] refractory to medical therapy, ventricular tachycardia, diabetes Final/Discharge Diagnosis non-ST elevation [place] refractory to medical therapy, ventricular tachycardia, diabetes, PCI with drug-eluting stent to the RCA and left circumflex artery. Chief Complaint/HPI Chief Complaint/HPI this is a 66-year-old gentleman with history of diabetes, hypertension and hyperlipidemia. He has known history of coronary artery disease with multiple stents 3 years ago in [facility]. He sees Dr. Conklin as an outpatient. He had a stress test done in December 2015 which according to the patient was within normal limits. He presents with continuous chest pain since 6 a.m. this morning. It was associated with nausea and vomiting. Initial chest pain severe at the was 6/10. It is similar to the chest pain he had in 2013. When I saw him in the emergency department, his chest pain was a little better but still there. The patient denies any smoking and tells me that he is compliant with his medications. Discharge Summary Procedures coronary angiography. FFR of the mid RCA was 0.79; therefore PCI with drug-eluting stent was performed. Severe distal left circumflex artery and ostium of obtuse marginal artery treated with PCI with drug-eluting stent. Discharge Physical Examination stable cardiac and respiratory exam. Hospital Course stable. Pending Labs Laboratory Tests 06/26/16 09:06: Glucometer 290 06/26/16 11:10: Anion Gap [Pending], BUN/Creatinine Ratio [Pending], Blood Urea Nitrogen [ Pending], Calcium Level [Pending], Carbon Dioxide Level [Pending], Chloride Level [Pending], Creatinine [Pending], Glucose Level [Pending], Potassium Level [Pending], Sodium Level [Pending], Troponin I [Pending] Discussion & Recommendations Discussion discharge took over 30 minutes to complete. This included speaking to the nursing staff, education to the patient, SOAP and discharge paperwork. Follow up appt.: Dr. Yates in one week Dicharge Diet: Cardiac Diet Activity as Tolerated: Yes Home Medications Reviewed patient Home Medication Reconciliation Form Discharge Home Medications: Reviewed and agree with Discharge Medication list on patient's Discharge Instruction sheet Condition at discharge stable Instructions to patient/family see Dr Yates in one week Diagnosis/Problems Diagnosis/Problems (1) Ventricular tachycardia Status: Resolved (2) NSTEMI (non-ST elevated myocardial infarction) Status: Resolved Clinical Quality Measures DVT/VTE Risk/Contraindication: Risk Factor Score Per Nursin RFS Level Per Nursing on Admit: 4+=Very High Jennifer YATES MD Jun 26, 2016 11:28 am
--- NOTE | 2016-06-26 11:30 | CARDIAC CATHETERIZATION ---
PROCEDURE PHYSICIAN: YULISA YATES DATE OF PROCEDURE: 06/24/2016 Coronary angiography INDICATION: Non-ST elevation [place] refractory to medical therapy, nonsustained ventricular tachycardia. PREOPERATIVE DIAGNOSIS: Non-ST elevation [place] refractory to medical therapy, nonsustained ventricular tachycardia, history of multiple PCI. POSTOPERATIVE DIAGNOSES: Severe mid RCA stenosis, status post PCI with drug-eluting stent; severe distal left circumflex artery stenosis status post PCI with drug eluting stent. HISTORY: Mr. Mcclellan is a 66-year-old gentleman who has a history of diabetes, hypertension, hyperlipidemia, CAD, multiple PCI in 2013. He presents with prolonged episode of chest pain since 6 o'clock this morning. The chest pain was refractory to medical therapy in the ER. Initial intensity was 6/10. When I saw the patient he was still having 2/10 chest pain. EKG showed possible ST elevation in lead III; however, there were no significant ST changes in lead II and aVF. A brief nonsustained VT was also noted. Due to the above, the patient was urgently/emergently taken to the Page Makeup System Operator for coronary angiography with possible PCI. PROCEDURE PERFORMED: 1. Coronary angiography. 2. Left heart catheterization. 3. FFR to the mid RCA. 4. PCI to mid RCA with drug eluting stent. 5. PCI to mid left circumflex artery with a drug eluting stent. COMPLICATIONS: None. SPECIMENS: None. ESTIMATED BLOOD LOSS: 30 mL. ANTICOAGULATION: IV heparin. CONTRAST: 193 mL of Omnipaque. FLUOROSCOPY DOSE: 1988 mGy. PROCEDURE DETAILS: The patient was brought to the Page Makeup System Operator after informed consent was taken. All the risks and complications were explained in detail. The patient was draped and prepped in the usual sterile fashion. Felipe's test was performed however, his Felipe's test was abnormal therefore access was gained in the right femoral artery with a 6-Romansh sheath. Coronary angiography was performed with a JR4 and a JL4 catheter. Left heart catheterization was performed with a pigtail catheter. FINDINGS: 1. RCA: Moderate to severe mid RCA stenosis. Severe stenosis severity is 70%. Anatomically it looked like an ulcerated plaque. There is mild diffuse disease in the distal vessel. There is patent stent in the PDA. 2. Left main: Patent. 3. LAD: Mild to moderate mid disease with a patent stent. There is no severe stenosis noted. 4. Left circumflex artery: Severe distal stenosis. Stenosis severity is 95%. 5. Left heart catheterization: Aortic pressure 116/68 mmHg. LV pressure 119/-8 mmHg. LVEDP is 2 mmHg. LV gram showed normal LV function with no significant wall motion abnormality. There was no gradient across the aortic valve. RECOMMENDATION: 1. FFR to the mid RCA is recommended. 2. PCI to the mid RCA is recommended if FFR is positive. 3. PCI to the mid to distal left circumflex artery is recommended. INTERVENTION DETAILS: We took a JR4 guide catheter, pressure wire as a guidewire and IV heparin for anticoagulation. ACT was over 200 seconds. We crossed the lesion very easily with a pressure wire. Adenosine was started at 140 mcg/kg per minute. Baseline FFR was 0.89. Maximal abnormal FFR was 0.79. Therefore PCI was recommended. We took Medtronic integrity 4.0 x 15 mm drug eluting stent and deployed it at 18 atmospheres for one minute. Post stent deployment angiography results were excellent. The stent balloon and wire were taken out and post angiography revealed excellent MARY GRACE 3 flow with no residual stenosis and no vascular complication. We then took a JR4 guide catheter and used the same pressure wire as a guidewire and crossed the lesion in the distal left circumflex artery. The stenosis extends to involve the ostium of an obtuse marginal artery. We then took 2.25 x 22mm Medtronic integrity stent and deployed at 12 atmospheres for 43 seconds. We then took NC Quantum 2.75 x 12 [employer] noncompliant balloon and did post dilatation in the mid and proximal segment of the stent at 18 atmospheres for 30 to 51 seconds. After post dilatation angiography revealed spasm at the distal aspect of the stent. Therefore 100 mcg of nitroglycerin was given with excellent results. The stent balloon and wire were taken out and post angiography revealed excellent results and MARY GRACE-3 flow with no residual stenosis. The patient tolerated the procedure well. Did not have any complication. CONCLUSION/RECOMMENDATION: 1. Severe 2 vessel disease treated with PCI with drug eluting stent. 2. Aspirin and Brilinta are recommended for at least a year. 3. Continue cardiac enzymes, CBC, BMP in the morning. Echocardiogram is recommended. Job ID: [id number] Dictated Date: 06/24/2016 20:04:22 Cosmetologist Apprentice Date: 06/26/2016 11:09:14 / marlys DENNY
[2016-06-26 11:35] LABS: CALCIUM 9.2 MG/DL (8.5-10.1); CREATININE SERUM 1.43 MG/DL (0.60-1.30); POTASSIUM 4.3 MMOL/L (3.6-5.0)
[2016-06-26 11:47] LABS: TROPONIN I 7.4 NG/ML (<0.30)
--- NOTE | 2016-06-26 11:48 | Progress Note-Hospitalist ---
Progress Note HPI/CC on Admission CC: Chest pain and MA with subsequent stent placement x 2 HPI: This is a 66yoWM clinic pt of mine for past 12 years with hx of DM, HTN, HLP, and chronic debility due to severe spine disease that presented to ER with chest pain. He sees Dr. Conklin for Cardiology on a regular basis and just recently had an EST 12/15 that was normal per pt. He reported chest pain since 0600 yesterday morning associated with nausea and vomiting. He had non- sustained ventricular tachycardia while in ER and due to risk factors was brought to animal laboratory helper and two stents were placed, one in circumflex and one in RCA with good results. Pt remains A-fib, vitals stable, Creat 1.49 down from 1.56, sugars in 250s, WBC 11.2 from 12.6, Pt is currently on Aspirin, Brilinta, Lipitor, and Lopressor. orthodontic lab technician: RN states that pt had an MA and two stents placed. Pt will DC tomorrow. Blood sugars are high, and Metformin is being held. Patient Interview: Pt states that he does not have any pain currently. Dr. Parsons discusses continued Cardiology care regarding post-DC plan. Pt is considering switching to a local Weathercaster. Physical exam stable. Pt asks about safety of blood thinner, and Dr. Parsons reassures pt. Scribed by Aldo Ghosh under the direct supervision of Dr. Parsons. Progress Notes/Assess & Plan Date Seen 06/26/16 Admission Dx/Process Assessment: Non-sustained ventricular tachycardia with acute myocardial infarction requiring placement of stents in circumflex and RCA DM HTN HLP Chronic debility due to severe spine disease chronic renal insufficiency gout Kidney stones BPH Diagonsis/Assessment & Plan Ready for discharge Has no problems with bleeding issues Will hold metformin until Tuesday I will reconcile all home meds at clinic AFVSS, Pleasant, Flat affect no changes RRR, CTAB No edema Laboratory Tests 06/26/16 11:10 Assessment: Non-sustained ventricular tachycardia with acute myocardial infarction requiring placement of stents in circumflex and RCA DM HTN HLP Chronic debility due to severe spine disease chronic renal insufficiency gout Kidney stones BPH Plan: Maintain on Aspirin, Brilinta, Lipitor, and Lopressor Monitor closely due to recent MA and stent placement Restart all home meds except metformin Monitor creatinine RINKU PARSONS DO Jun 26, 2016 11:48
[2016-06-26 12:00] VITALS: BP 148/84
[2016-06-26 14:23] VITALS: BP 148/84
--- NOTE | 2016-06-27 14:59 | ECHOCARDIOGRAPHY REPORT ---
PROCEDURE PHYSICIAN: YULISA BERG DATE OF PROCEDURE: 06/25/2016 TWO DIMENSIONAL ECHOCARDIOGRAM REPORT PRIMARY PHYSICIAN: Dr. Sharron Parsons ATTENDING PHYSICIAN: Dr. Ernie Berg OTHER PHYSICIAN: REFERRING PHYSICIAN: ORDERING PHYSICIAN: INDICATION FOR THE PROCEDURE: Chest pain. MEASUREMENTS DERIVED VALUES LV DIAMETER (LAX) NORMALS NORMALS Diastolic (3.6-5.2) Eject. Fract. (60%+/-6%) Systolic (2.3-3.9) Diastolic Vol. % Shortening (0.22-0.42) Systolic Vol. Aortic Root IVS THICKNESS Diastolic (0.6-1.1) LVPW THICKNESS Diastolic (0.6-1.1) LA DIAMETER Systolic (2.1-3.7) FINDINGS: 1. Sinus rhythm. 2. Left atrial dimensions are normal. 3. Aortic root dimension is normal. 4. Left ventricular systolic function is normal. 5. Left ventricular ejection fraction is 55 to 60%. Mild LVH is present. Diastolic intraventricular septal diameter is 1.2 cm. 6. There is no significant wall motion abnormalities. 7. Right heart function is normal. 8. There is no evidence of pericardial effusion. 9. There is mild diastolic dysfunction. 10. IVC is normal. VALVULAR STRUCTURE OF THE HEART: There is trace tricuspid regurgitation and trace mitral regurgitation. There is no significant aortic valve or pulmonic valve pathology. CONCLUSION: 1. LV and RV size and function is normal. 2. LV EF is 55 to 60%. 3. There is no significant valvular heart disease. 4. Normal pulmonary pressures with an RVSP of 17 mmHg is noted. Job ID: [id number] Dictated Date: 06/26/2016 17:01:30 Lithographer Apprentice Date: 06/27/2016 14:56:18 / marlys
== END 2016-06-26 13:30 | disposition home or self-care (01) | DRG 247 ==
LOC: EDUNIT# 08:58 → ER 08:59 → CATH 10:31 → ICU 12:30 → CATH 06-25 08:32 → UNDOADMIN 06-25 08:32 → ICU 06-25 08:32 → UNDODISIN 06-26 13:30
PROVIDERS: ADMIT Internal Medicine Interventional Cardiology; ATTEND Internal Medicine Interventional Cardiology
PROC: 027135Z Dilation of Coronary Artery, Two Arteries with Two Drug-eluting Intraluminal Devices, Percutaneous Approach (ICD-10-PCS; principal; 2016-06-24)
PROC: 4A023N7 Measurement of Cardiac Sampling and Pressure, Left Heart, Percutaneous Approach (ICD-10-PCS; 2016-06-24)
PROC: B2151ZZ Fluoroscopy of Left Heart using Low Osmolar Contrast (ICD-10-PCS; 2016-06-24)
PROC: B2111ZZ Fluoroscopy of Multiple Coronary Arteries using Low Osmolar Contrast (ICD-10-PCS; 2016-06-24)
DX: I21.4 Non-ST elevation (NSTEMI) myocardial infarction (principal); I25.10 Atherosclerotic heart disease of native coronary artery without angina pectoris; I47.2 Ventricular tachycardia; E11.43 Type 2 diabetes mellitus with diabetic autonomic (poly)neuropathy; E11.22 Type 2 diabetes mellitus with diabetic chronic kidney disease; I12.9 Hypertensive chronic kidney disease with stage 1 through stage 4 chronic kidney disease, or unspecified chronic kidney disease; N18.9 Chronic kidney disease, unspecified; E78.5 Hyperlipidemia, unspecified; K21.9 Gastro-esophageal reflux disease without esophagitis; M10.9 Gout, unspecified; N20.0 Calculus of kidney; N40.0 Benign prostatic hyperplasia without lower urinary tract symptoms; R53.81 Other malaise; M48.9 Spondylopathy, unspecified; Z95.5 Presence of coronary angioplasty implant and graft; Z79.84 Long term (current) use of oral hypoglycemic drugs
CPT/HCPCS: 36415; 71010; 80048; 80053; 80061; 82962; 83735; 83874; 84484; 85007; 85027; 85347; 85610; 85730; 93005; 93041; 93306; 93458; 93571; 96361; 96374

== ENCOUNTER 2016-08-31 22:52 | Emergency (ER) | payer MEDICARE ==
[~2016-08-31] VITALS: Ht 188 cm; Wt 136.1 kg
[~2016-08-31 22:52] MED LIST changes: +ASPI-586 PO; +CLON2TAB3 PO; +GABA-490 PO; +HYDR-3812 PO; +METF-479 PO; +METH500T7 PO; +METO-272 PO; +NITR0.4T39 SL; +TAMS0.4C98 PO; +TICA90TA PO
[2016-08-31] MEDS ORDERED: TICA90TA PO (23:05)
--- NOTE | 2016-08-31 23:12 | ED GU-Male ---
General Chief Complaint: -Male Stated Complaint: BLOOD IN URINE Nursing Triage Note: PT REPORTS BRIGHT RED BLOOD IN URINE X1HR. HX RENAL STONES Source: patient, RN notes reviewed Exam Limitations: no limitations History of Present Illness Time seen by provider: 23:12 Initial Comments As above and below. Timing/Duration: just prior to arrival Severity/Quality: moderate Activities at Onset: none Prior Genitourinary Problems: similar symptoms ((+) hx of kidney stones) Modifying Factors: Improves With Other (none) Associated Symptoms: lower back pain (chronic; 10/09 ) Allergies and Home Medications Allergies Coded Allergies: No Known Drug Allergies (Unverified , 11/02/11) Home Medications Allopurinol 300 Mg Tab, 300 MG PO DAILY, (Reported) Aspirin 81 Mg Tablet.dr, 81 MG PO DAILY, (Reported) Cefdinir 300 Mg Capsule, 300 MG PO BID, #20 Prescribed by: MARU EATON on 09/01/16 0040 Clonazepam 2 Mg Tablet, 2 MG PO HS, (Reported) Clonazepam 2 Mg Tablet, 1 MG PO DAILY PRN for SEVERE MUSCLE PAIN, (Reported) TAKES 1/2 (2MG) TABLET Finasteride 5 Mg Tablet, 5 MG PO DAILY, (Reported) Gabapentin 400 Mg Capsule, 400 MG PO QID, (Reported) Glipizide 5 Mg Tab.er.24, 5 MG PO DAILY, (Reported) Hydrocodone/Acetaminophen 1 Each Tablet, 1 TAB PO Q6H PRN for PAIN, (Reported) Losartan Potassium 100 Mg Tablet, 100 MG PO DAILY, (Reported) Lovastatin 40 Mg Tablet, 40 MG PO HS, (Reported) Meloxicam 15 Mg Tablet, 15 MG PO DAILY, (Reported) Metformin HCl 500 Mg Tab.er.24h, 1,000 MG PO BID, (Reported) TAKES 2 (500MG) TABLETS Methocarbamol 500 Mg Tablet, 500 MG PO 0700,1200 PRN for MUSCLE SPASMS, ( Reported) Metoprolol Succinate 50 Mg Tab.er.24h, 50 MG PO DAILY, (Reported) Nitroglycerin 0.4 Mg Tab.subl, 0.4 MG SL UD PRN for CHEST PAIN, (Reported) Pantoprazole Sodium 40 Mg Tablet.dr, 40 MG PO DAILY, (Reported) Sitagliptin Phosphate 100 Mg Tablet, 100 MG PO DAILY, (Reported) Tamsulosin HCl 0.4 Mg Cap, 0.4 MG PO HS, (Reported) Ticagrelor 90 Mg Tablet, 90 MG PO BID, #60 Ref 6 Prescribed by: Jennifer YATES on 06/26/16 1120 Ticagrelor 90 Mg Tablet, 1 TAB PO UD, #60 (Reported) Tizanidine Hcl 4 Mg Tablet, 4 MG PO TID PRN for MUSCLE SPASMS, (Reported) Constitutional: see HPI Genitourinary: see HPI, hematuria All Other Systemes Reviewed Negative Unless Noted: Yes (Negative excepted noted.) Past Szqzowd-Nyfhpy-Xhmuoq Hx Patient Social History Alcohol Use: Denies Use Recreational Drug Use: No Smoking Status: Never a Smoker 2nd Hand Smoke Exposure: No Recent Foreign Travel: No Contact w/Someone Who Travel: No Recent Infectious Disease Expo: No Recent Hopitalizations: Yes (STENTS 2014) Immunizations Up To Date Tetanus Booster (TDap): Unknown Date of Pneumonia Vaccine: Oct 30, 2014 Date of Influenza Vaccine: Apr 01, 2016 Seasonal Allergies Seasonal Allergies: No Surgeries HX Surgeries: Yes (lumbar fusion L2-S1 06/07/08, lumbar disk removed 1985) Surgeries: Coronary Stent, Orthopedic Respiratory Hx Respiratory Disorders: No Cardiovascular Hx Cardiac Disorders: Yes Cardiac Disorders: Coronary Artery Disease, High Cholesterol, Hypertension Neurological Hx Neurological Disorders: Yes (arachnoiditis causing frequent cramping, gastroparesis) Reproductive System Hx Reproductive Disorders: No Genitourinary Hx Genitourinary Disorders: Yes Genitourinary Disorders: Prostate Problems, Kidney Stones Gastrointestinal Hx Gastrointestinal Disorders: Yes (gastroparesis) Gastrointestinal Disorders: Gastroesophageal Reflux, Ulcer Musculoskeletal Hx Musculoskeletal Disorders: Yes Musculoskeletal Disorders: Chronic Back Pain Endocrine Hx Endocrine Disorders: Yes Endocrine Disorders: Diabetes, Non-Insulin dep HEENT HX ENT Disorders: No Cancer Hx Cancer: No Psychosocial Hx Psychiatric Problems: No Behavioral Health Disorders: Depression Integumentary HX Skin/Integumentary Disorder: No Blood Transfusions Hx Blood Disorders: No Family Medical History Significant Family History: No Pertinent Family Hx Family Medial History: Family history: Cardiovascular disease Family history: Hypertension 03 MOTHER Family history: Osteoporosis 03 MOTHER Stroke 03 FATHER Physical Exam Vital Signs Vital Sign - Last 12Hours 08/31/16 23:05 Temp 98.1 Pulse 85 Resp 18 B/P (MAP) 171/98 Pulse Ox 96 O2 Delivery Room Air Capillary Refill : Less Than 3 Seconds General Appearance: WD/WN, no apparent distress, obese Cardiovascular: regular rate, rhythm Respiratory: no respiratory distress Gastrointestinal: soft, No tenderness Rectal: deferred Neurologic/Psychiatric: no motor/sensory deficits, alert, oriented x 3 Skin: warm/dry Progress/Results/Core Measures Results/Orders Lab Results Laboratory Tests Test 08/31/16 23:15 08/31/16 23:35 Range/Units White Blood Count 8.6 4.3-11.0 10^3/uL Red Blood Count 4.33 L 4.35-5.85 10^6/uL Hemoglobin 13.1 L 13.3-17.7 G/DL Hematocrit 39 L 40-54 % Mean Corpuscular Volume 90 80-99 FL Mean Corpuscular Hemoglobin 30 25-34 PG Mean Corpuscular Hemoglobin Concent 34 32-36 G/DL Red Cell Distribution Width 14.4 10.0-14.5 % Platelet Count 207 130-400 10^3/uL Mean Platelet Volume 10.6 H 7.4-10.4 FL Neutrophils (%) (Auto) 59 42-75 % Lymphocytes (%) (Auto) 29 12-44 % Monocytes (%) (Auto) 8 0-12 % Eosinophils (%) (Auto) 3 0-10 % Basophils (%) (Auto) 1 0-10 % Neutrophils # (Auto) 5.1 1.8-7.8 X 10^3 Lymphocytes # (Auto) 2.5 1.0-4.0 X 10^3 Monocytes # (Auto) 0.7 0.0-1.0 X 10^3 Eosinophils # (Auto) 0.3 0.0-0.3 10^3/uL Basophils # (Auto) 0.0 0.0-0.1 10^3/uL Sodium Level 140 135-145 MMOL/L Potassium Level 4.4 3.6-5.0 MMOL/L Chloride Level 108 H 98-107 MMOL/L Carbon Dioxide Level 19 L 21-32 MMOL/L Anion Gap 13 5-14 MMOL/L Blood Urea Nitrogen 25 H 7-18 MG/DL Creatinine 1.70 H 0.60-1.30 MG/DL Estimat Glomerular Filtration Rate 40 BUN/Creatinine Ratio 15 Glucose Level 156 H 70-105 MG/DL Calcium Level 9.6 8.5-10.1 MG/DL Total Bilirubin 0.5 0.1-1.0 MG/DL Aspartate Amino Transf (AST/SGOT) 30 5-34 U/L Alanine Aminotransferase (ALT/SGPT) 37 0-55 U/L Alkaline Phosphatase 75 40-136 U/L Total Protein 7.2 6.4-8.2 G/DL Albumin 4.3 3.2-4.5 G/DL Urine Color RICH H Urine Clarity VERY CLOUDY H Urine pH 5 5-9 Urine Specific [place] 1.015 L 1.016-1.022 Urine Protein 2+ H NEGATIVE Urine Glucose (UA) NEGATIVE NEGATIVE Urine Ketones NEGATIVE NEGATIVE Urine Nitrite NEGATIVE NEGATIVE Urine Bilirubin NEGATIVE NEGATIVE Urine Urobilinogen NORMAL NORMAL MG/DL Urine Leukocyte Esterase 1+ H NEGATIVE Urine RBC (Auto) 5+ H NEGATIVE Urine RBC >100 H /HPF Urine WBC NONE /HPF Urine Crystals NONE /LPF Urine Bacteria TRACE /HPF Urine Casts NONE /LPF Urine Mucus NEGATIVE /LPF Urine Yeast FEW H /HPF Urine Culture Indicated YES Micro Results Microbiology 08/31/16 Urine Culture - Final, Complete Enterococcus Faecalis My Orders Orders - MARU EATON DO Saline Lock/Iv-Start (08/31/16 23:10) Cbc With Automated Diff (08/31/16 23:10) Comprehensive Metabolic Panel (08/31/16 23:10) Ua Culture If Indicated (08/31/16 23:10) Ct Abd/Pelvis Wo(Kidney Stone) (08/31/16 23:12) Urine Culture (08/31/16 23:35) Vital Signs/I&O Vital Sign - Last 12Hours 08/31/16 09/01/16 23:05 01:00 Temp 98.1 Pulse 85 78 Resp 18 18 B/P (MAP) 171/98 Pulse Ox 96 97 O2 Delivery Room Air Blood Pressure Mean: 122 Diagnostic Imaging Diagonstic Imaging: CT Plain Films/CT/US/NM/MRI: abdomen, pelvis (nothing acute) Departure Impression Impression: Primary Impression: Hematuria Additional Impression: Suspect recently passed ureterolithaisis Disposition: HOME, SELF-CARE Condition: Stable Departure-Patient Inst. Decision time for Depature: 00:38 Referrals: RINKU FULLER DO (PCP/Family) Primary Care Physician ROXI CASTANEDA MD Patient Instructions: Blood in the Urine (Hematuria), Adult (DC), Kidney Stones in Adults Scripts Cefdinir (Cefdinir) 300 Mg Capsule 300 MG PO BID for UTI, #20 CAP Prov: MARU EATON DO 09/01/16 MARU EATON DO August 31, 2016 23:12
[2016-08-31 23:31] LABS: BASOPHILS % (AUTO) 1 % (0-10); EOSINOPHILS # (AUTO) 0.3 10^3/uL (0.0-0.3); EOSINOPHILS % (AUTO) 3 % (0-10); LYMPHOCYTES # (AUTO) 2.5 X 10^3 (1.0-4.0); LYMPHOCYTES % (AUTO) 29 % (12-44); MEAN CORPUSCULAR HEMOGLOBIN 30 PG (25-34); MEAN CORPUSCULAR HGB CONC 34 G/DL (32-36); MEAN CORPUSCULAR VOLUME 90 FL (80-99); MEAN PLATELET VOLUME 10.6 FL (7.4-10.4); MONOCYTES # (AUTO) 0.7 X 10^3 (0.0-1.0); MONOCYTES % (AUTO) 8 % (0-12); NEUTROPHILS # (AUTO) 5.1 X 10^3 (1.8-7.8); NEUTROPHILS % (AUTO) 59 % (42-75); PLATELET COUNT 207 10^3/uL (130-400); RED BLOOD COUNT 4.33 10^6/uL (4.35-5.85); RED CELL DISTRIBUTION WIDTH 14.4 % (10.0-14.5); WHITE BLOOD COUNT 8.6 10^3/uL (4.3-11.0)
[2016-08-31 23:43] LABS: BILIRUBIN,URINE NEGATIVE (NEGATIVE); KETONES,URINE NEGATIVE (NEGATIVE); LEUKOCYTE ESTERASE ,URINE 1+ (NEGATIVE); NITRITE,URINE NEGATIVE (NEGATIVE); PH,URINE 5 (5-9); PROTEIN,URINE 2+ (NEGATIVE); UROBILINOGEN,URINE NORMAL (NORMAL)
[2016-08-31 23:50] LABS: ALBUMIN 4.3 G/DL (3.2-4.5); BILIRUBIN,TOTAL 0.5 MG/DL (0.1-1.0); CALCIUM 9.6 MG/DL (8.5-10.1); CREATININE SERUM 1.7 MG/DL (0.60-1.30); POTASSIUM 4.4 MMOL/L (3.6-5.0); TOTAL PROTEIN 7.2 G/DL (6.4-8.2)
[2016-08-31 23:54] LABS: YEAST,URINE FEW /HPF
[2016-09-01] MEDS ORDERED: CEFD300C3 PO (00:40)
[2016-09-01 01:00] VITALS: BP 137/84
--- NOTE | 2016-09-01 09:06 | Diagnostic Imaging Report ---
PROCEDURE: CT urinary tract, rule out kidney stone. TECHNIQUE: Multiple contiguous axial images were obtained through the abdomen and pelvis without the use of intravenous contrast. INDICATION: Hematuria. FINDINGS: The lung bases demonstrate minimal atelectasis bilaterally. The liver demonstrate diffuse hepatic steatosis. The gallbladder demonstrate no stones or wall thickening. No pericholecystic fluid. The spleen is not enlarged. The adrenal glands and the pancreas appear unremarkable. The kidneys demonstrate no hydronephrosis. There are nonobstructive stones up to 4 mm in the lower pole of the left kidney, and 2 mm stone in the lower pole of the right kidney. There is no hydronephrosis. No ureteric or bladder stones seen. There are multiple low density lesions in the kidneys as seen with one posteriorly exophytic from the left kidney demonstrating slightly higher density than simple fluid may represent a complicated cyst. Abdominal aorta is normal in caliber. No para-aortic significantly enlarged lymph node is seen. No pelvic lymphadenopathy is noted. There is a small fat-containing umbilical hernia. No bowel obstruction. No significant free fluid or fluid collection in the abdomen or pelvis. There is diverticulosis with no diverticulitis. The prostate is slightly prominent in size. Nonspecific minimal nonfocal anterior bladder wall thickening is seen. The osseous structures demonstrate post fusion changes in the mid to lower lumbar spine levels with multilevel laminectomy and seroma seen at the laminectomy site. IMPRESSION: 1. Nonobstructive bilateral kidney stones seen. Also the kidneys demonstrate low attenuation lesions with one posteriorly exophytic from the left kidney slightly higher than the density of simple fluid. Confirmation with ultrasound of the cystic nature is recommended. 2. Fat-containing small umbilical hernia. 4. Diverticulosis. No diverticulitis. Dictated by: Dictated on workstation # [id number]
== END 2016-09-01 01:00 | disposition home or self-care (01) ==
LOC: EDUNIT# 22:52 → ER 22:53
DX: R31.9 Hematuria, unspecified (principal); E11.9 Type 2 diabetes mellitus without complications; Z79.84 Long term (current) use of oral hypoglycemic drugs; Z79.899 Other long term (current) drug therapy; Z79.82 Long term (current) use of aspirin; Z95.5 Presence of coronary angioplasty implant and graft
CPT/HCPCS: 36415; 74176; 80053; 81000; 85025; 87088; 87186

== ENCOUNTER → 2017-01-20 | Outpatient (CLI) | payer MEDICARE ==
[~2017-01-20] MED LIST changes: +CEFD300C3 PO
--- NOTE | 2017-01-20 17:33 | Diagnostic Imaging Report ---
PROCEDURE: CT right lower extremity without contrast. TECHNIQUE: Axially acquired CT was obtained through the right lower extremity without intravenous contrast. Coronal and sagittal reformations were also performed. INDICATION: Right knee pain. FINDINGS: There is a small right knee effusion. No Gutierrez's cyst. There are dilated varicose veins seen along the medial aspect of the knee within the subcutaneous tissues. The osseous structures demonstrate no fracture, subluxation, or dislocation. No suspicious focal osseous lesion is seen. There are mild tricompartment osteophytes and suggestion of mild cartilage thinning in the medial compartment. There is nonspecific mild soft tissue edema anterior to the patellar tendon, which may relate to superficial infrapatellar bursitis. There is no significant fluid collection or significant bursal distention with fluid seen. IMPRESSION: 1. Mild tricompartment osteoarthritis. 2. Edema in the anterior aspect of the knee mostly anterior to the patellar tendon, may relate to superficial infrapatellar bursitis. Dictated by: Dictated on workstation # [id number]
--- NOTE | 2017-01-20 20:34 | Diagnostic Imaging Report ---
PROCEDURE: CT left lower extremity without contrast. TECHNIQUE: Multiple contiguous axial images were obtained through the left lower extremity without the use of intravenous contrast. Sagittal and coronal reformations were then performed. INDICATION: Left knee pain FINDINGS: The soft tissues demonstrate prominent fluid collection seen along the medial aspect of the knee which appears to be centered at the thumb upper tibia level and deep to the STS tendons suggestive of pes anserine bursitis. There is no fracture or dislocation. There is severe osteoarthritis changes with near bone on bone appearance in the medial compartment compatible with severe cartilage loss. There is preserved joint space in the lateral compartment. There is tricompartment prominent osteophytes. There is also irregularity of the lower aspect of the patella and the trochlea probably related to advanced patellofemoral compartment osteoarthritis. Tiny joint effusion is seen. There is no Gutierrez's cyst. Note is made of prominent superficial veins along the medial aspect of the subcutaneous tissues compatible with varicose veins. IMPRESSION: 1. Relatively large fluid collection along the medial aspect of the knee suggestive of pes anserine bursitis. 2. Advanced osteoarthritis changes most prominent in the medial and patellofemoral compartments. 3. Varicose veins. Dictated by: Dictated on workstation # [id number]
== END ==
LOC: RAD 13:53
DX: I83.92 Asymptomatic varicose veins of left lower extremity; R60.0 Localized edema; M25.461 Effusion, right knee; M17.12 Unilateral primary osteoarthritis, left knee
CPT/HCPCS: 73700

== ENCOUNTER → 2017-06-23 | Outpatient (CLI) | payer MEDICARE ==
[~2017-06-23] MED LIST changes: +ACHD5005 PO; -HYDR-3812 PO; -METO-272 PO; +METO-370 PO
== END ==
LOC: CARD 10:03
PROVIDERS: ATTEND Internal Medicine Interventional Cardiology
DX: I73.9 Peripheral vascular disease, unspecified (principal); I25.10 Atherosclerotic heart disease of native coronary artery without angina pectoris; E11.9 Type 2 diabetes mellitus without complications; R06.02 Shortness of breath
CPT/HCPCS: 93306

== ENCOUNTER → 2017-07-14 | Outpatient (CLI) | payer MEDICARE ==
[~2017-07-14] MED LIST changes: +CATHETER FLUSH 10 ML SYR IV PRN; +REGADENOSON 0.4 MG/5 ML SYR (LEXISCAN) IV ONE
[2017-07-14 09:16] VITALS: BP 151/76
== END ==
LOC: CARD 06:52
PROVIDERS: ATTEND Internal Medicine Interventional Cardiology
DX: I25.10 Atherosclerotic heart disease of native coronary artery without angina pectoris (principal); R07.89 Other chest pain; R06.02 Shortness of breath; E11.9 Type 2 diabetes mellitus without complications
CPT/HCPCS: 78452; 93017

== ENCOUNTER 2017-07-19 06:48 | Day surgery (SDC) | payer MEDICARE ==
[~2017-07-19] VITALS: Ht 182.9 cm; Wt 136.1 kg
[2017-07-19] VITALS (10 sets, daily range): BP systolic 126–164; BP diastolic 73–88
[~2017-07-19 06:48] MED LIST changes: -CATHETER FLUSH 10 ML SYR IV PRN; -REGADENOSON 0.4 MG/5 ML SYR (LEXISCAN) IV ONE
[2017-07-19] MEDS ORDERED: HEParin (CATH LAB) 2,000 ML IV ONE (06:50)
[2017-07-19] MEDS ORDERED: NS IV 1000 ML 1,000 ML ONE (06:50)
--- OUTSIDE RECORDS SUMMARY | 2017-07-19 06:57 | XMS REPORT | Continuity of Care Document ---
Author Author [facility] Organization [facility] Address Unknown Phone Unavailable Allergies Active Description Code Type Severity Reaction Onset Reported/Identified Relationship to Patient Clinical Status Yes No Known Drug Allergies [id number] Drug Allergy Unknown N/A 11/02/2011 Medications There is no data. Problems Date Dx Coded Attending Type Code Diagnosis Diagnosed By 05/19/2013 RINKU FULLER DO Ot 250.60 DIAB W NEURO MANIFEST, TYPE II OR UNSPEC 05/19/2013 AUSTYN FULLER DOI Ot 272.0 PURE HYPERCHOLESTEROLEM 05/19/2013 ALINA RICHARDS RINKU Ot 272.4 HYPERLIPIDEMIA NEC/NOS 05/19/2013 AUSTYN FULLER DOI Ot 311 DEPRESSIVE DISORDER NEC 05/19/2013 ALINA RICHARDS RINKU Ot 338.29 OTHER CHRONIC PAIN 05/19/2013 ALINA RICHARDS RINKU Ot 357.2 NEUROPATHY IN DIABETES 05/19/2013 ALINA RICHARDS RINKU Ot 401.9 HYPERTENSION NOS 05/19/2013 ALINA RICHARDS RINKU Ot 410.71 AC MYOCARDIAL INFARCT,SUBENDO INFARCT,IN 05/19/2013 AUSTYN FULLER DOI Ot 414.01 CORONARY ATHEROSCLEROSIS OF [place] CORON 05/19/2013 ALINA RICHARDS RINKU Ot 530.81 ESOPHAGEAL REFLUX 05/19/2013 ALINA RICHARDS RINKU Ot 592.0 CALCULUS OF KIDNEY 05/19/2013 ALINA RICHARDS RINKU Ot 724.5 BACKACHE NOS 05/19/2013 ALINA RICHARDS RINKU Ot 782.3 EDEMA 12/27/2014 ALINA RICHARDS RINKU Ot 789.01 01/02/2015 ALINA RICHARDS RINKU Ot 789.00 01/09/2015 ALINA RICHARDS RINKU Ot 789.00 01/14/2015 ALINA RICHARDS RINKU Ot 789.01 01/24/2015 ALINA RICHARDS RINKU Ot 789.01 06/24/2016 ALINA RICHARDS RINKU Ot 789.00 ABDOMINAL PAIN, UNSPECIFIED SITE 06/24/2016 RINKU FULLER DO Ot 789.01 ABDOMINAL PAIN, RIGHT UPPER QUADRANT 06/26/2016 Jennifer YATES MD Ot 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 06/26/2016 eJnnifer YATES MD Ot E11.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 2 DIABETES W DIABETIC AUTONOMIC (PO 06/26/2016 Jennifer YATES MD Ot E78.5 HYPERLIPIDEMIA, UNSPECIFIED 06/26/2016 Jennifer YATES MD Ot I12.9 HYPERTENSIVE CHRONIC KIDNEY DISEASE W ST 06/26/2016 Jennifer YATES MD Ot I21.4 NON-ST ELEVATION (NSTEMI) MYOCARDIAL INF 06/26/2016 Jennifer YATES MD, Ot I25.10 ATHSCL HEART DISEASE OF [place] CORONARY 06/26/2016 Jennifer YATES MD Ot I47.2 VENTRICULAR TACHYCARDIA 06/26/2016 Jennifer YATES MD, Ot K21.9 GASTRO-ESOPHAGEAL REFLUX DISEASE WITHOUT 06/26/2016 Jennifer YATES MD Ot M10.9 GOUT, UNSPECIFIED 06/26/2016 Jennifer YATES MD Ot M48.9 SPONDYLOPATHY, UNSPECIFIED 06/26/2016 Jennifer YATES MD Ot N18.9 CHRONIC KIDNEY DISEASE, UNSPECIFIED 06/26/2016 Jennifer YATES MD Ot N20.0 CALCULUS OF KIDNEY 06/26/2016 Jennifer YATES MD Ot N40.0 BENIGN PROSTATIC HYPERPLASIA WITHOUT LOW 06/26/2016 Jennifer YATES MD Ot R53.81 OTHER MALAISE 06/26/2016 Jennifer YATES MD Ot Z79.84 CARE HOME (CURRENT) USE OF ORAL HYPOGLYC 06/26/2016 Jennifer YATES MD Ot Z95.5 PRESENCE OF CORONARY ANGIOPLASTY IMPLANT 07/01/2016 RINKU FULLER DO Ot 789.00 ABDOMINAL PAIN, UNSPECIFIED SITE 07/01/2016 RINKU FULLER DO Ot 789.01 ABDOMINAL PAIN, RIGHT UPPER QUADRANT 09/01/2016 MAUR EATON DO Ot E11.9 TYPE 2 DIABETES MELLITUS WITHOUT COMPLIC 09/01/2016 UMA RICHARDS MARU Vasquez Ot R31.9 HEMATURIA, UNSPECIFIED 09/01/2016 MARU EATON DO, Ot Z79.82 CARE HOME (CURRENT) USE OF ASPIRIN 09/01/2016 MARU EATON DO Ot Z79.84 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 (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) USE OF ORAL HYPOGLYC 09/01/2016 UMAMARU BEDOYA DO, Ot Z79.899 OTHER GEAR LAPPING MACHINE OPERATOR (CURRENT) DRUG THERAPY 09/01/2016 MARU EATON DO Ot Z95.5 PRESENCE OF CORONARY ANGIOPLASTY IMPLANT 09/01/2016 MARU EATON DO Ot E11.9 TYPE 2 DIABETES MELLITUS WITHOUT COMPLIC 09/01/2016 MARU EATON DO, Ot R31.9 HEMATURIA, UNSPECIFIED 09/01/2016 MARU EATON DO, Ot Z79.82 CARE HOME (CURRENT) USE OF ASPIRIN 09/01/2016 MARU EATON DO Ot Z79.84 GEAR LAPPING MACHINE OPERATOR (CURRENT) USE OF ORAL HYPOGLYC 09/01/2016 MARU EATON DO, Ot Z79.899 OTHER GEAR LAPPING MACHINE OPERATOR (CURRENT) DRUG THERAPY 09/01/2016 MARU EATON DO Ot Z95.5 PRESENCE OF CORONARY ANGIOPLASTY IMPLANT 01/19/2017 ALINA RICHARDS RINKU Ot 789.00 ABDOMINAL PAIN, UNSPECIFIED SITE 01/19/2017 ALINA RICHARDS RINKU Ot 789.01 ABDOMINAL PAIN, RIGHT UPPER QUADRANT 01/19/2017 ALINA RICHARDS RINKU Ot 789.00 ABDOMINAL PAIN, UNSPECIFIED SITE 01/19/2017 ALINA RICHARDS RINKU Ot 789.01 ABDOMINAL PAIN, RIGHT UPPER QUADRANT 01/26/2017 SARAH ACEVES, KRISTIE Wing Ot I83.92 ASYMPTOMATIC VARICOSE VEINS OF LEFT LOWE 01/26/2017 SARAH ACEVES, KRISTIE Wing Ot M17.12 UNILATERAL PRIMARY OSTEOARTHRITIS, LEFT 01/26/2017 SARAH ACVEES, KRISTIE Wing Ot M25.461 EFFUSION, RIGHT KNEE 01/26/2017 SARAH ACEVES, KRISTIE Wing Ot R60.0 LOCALIZED EDEMA 01/26/2017 SARAH ACEVES, KRISTIE Wing Ot I83.92 ASYMPTOMATIC VARICOSE VEINS OF LEFT LOWE 01/26/2017 KRISTIE SMITH MD Ot M17.12 UNILATERAL PRIMARY OSTEOARTHRITIS, LEFT 01/26/2017 SARAH ACEVES, KRISTIE R Ot M25.461 EFFUSION, RIGHT KNEE 01/26/2017 SARAH ACEVES, KRISTIE R Ot R60.0 LOCALIZED EDEMA 01/28/2017 SARAH ACEVES, KRISTIE R Ot I83.92 ASYMPTOMATIC VARICOSE VEINS OF LEFT LOWE 01/28/2017 SARAH ACEVES, KRISTIE R Ot M17.12 UNILATERAL PRIMARY OSTEOARTHRITIS, LEFT 01/28/2017 SARAH ACEVES, KRISTIE R Ot M25.461 EFFUSION, RIGHT KNEE 01/28/2017 SARAH ACEVES, KRISTIE R Ot R60.0 LOCALIZED EDEMA 02/15/2017 SARAH ACEVES, KRISTIE R Ot I83.92 ASYMPTOMATIC VARICOSE VEINS OF LEFT LOWE 02/15/2017 SARAH ACEVES, KRISTIE Wing Ot M17.12 UNILATERAL PRIMARY OSTEOARTHRITIS, LEFT 02/15/2017 SARAH ACEVES, KRISTIE R Ot M25.461 EFFUSION, RIGHT KNEE 02/15/2017 SARAH ACEVES, KRISTIE R Ot R60.0 LOCALIZED EDEMA 02/24/2017 SARAH ACEVES, KRISTIE R Ot I83.92 ASYMPTOMATIC VARICOSE VEINS OF LEFT LOWE 02/24/2017 SARAH ACEVES, KRISTIE R Ot M17.12 UNILATERAL PRIMARY OSTEOARTHRITIS, LEFT 02/24/2017 SARAH ACEVES, KRISTIE Wing Ot M25.461 EFFUSION, RIGHT KNEE 02/24/2017 SARAH ACEVES, KRISTIE R Ot R60.0 LOCALIZED EDEMA 06/21/2017 TRUDY ACEVES, Jennifer MAIN Ot I25.10 ATHSCL HEART DISEASE OF [place] CORONARY 06/21/2017 RINKU FULLER DO Ot 789.00 ABDOMINAL PAIN, UNSPECIFIED SITE 06/21/2017 RINKU FULLER DO Ot 789.01 ABDOMINAL PAIN, RIGHT UPPER QUADRANT 06/21/2017 SARAH ACEVES, KRISTIE R Ot I83.92 ASYMPTOMATIC VARICOSE VEINS OF LEFT LOWE 06/21/2017 SARAH ACEVES, KRISTIE Wing Ot M17.12 UNILATERAL PRIMARY OSTEOARTHRITIS, LEFT 06/21/2017 SARAH ACEVES, KRISTIE R Ot M25.461 EFFUSION, RIGHT KNEE 06/21/2017 SARAH ACEVES, KRISTIE R Ot R60.0 LOCALIZED EDEMA 06/21/2017 Jennifer YATES MD Ot I25.10 ATHSCL HEART DISEASE OF [place] CORONARY 06/23/2017 RINKU FULLER DO Ot 789.00 ABDOMINAL PAIN, UNSPECIFIED SITE 06/23/2017 RINKU FULLER DO Ot 789.01 ABDOMINAL PAIN, RIGHT UPPER QUADRANT 06/23/2017 KRISTIE SMITH MD Ot I83.92 ASYMPTOMATIC VARICOSE VEINS OF LEFT LOWE 06/23/2017 KRISTIE MSITH MD, Ot M17.12 UNILATERAL PRIMARY OSTEOARTHRITIS, LEFT 06/23/2017 KRISTIE SMITH MD, Ot M25.461 EFFUSION, RIGHT KNEE 06/23/2017 KRISTIE SMITH MD Ot R60.0 LOCALIZED EDEMA 06/23/2017 Jennifer YATES MD, Ot I25.10 ATHSCL HEART DISEASE OF [place] CORONARY 06/24/2017 Jennfier YATES MD Ot E11.9 TYPE 2 DIABETES MELLITUS WITHOUT COMPLIC 06/24/2017 Jennifer YATES MD Ot I25.10 ATHSCL HEART DISEASE OF [place] CORONARY 06/24/2017 Jennifer YATES MD Ot I73.9 PERIPHERAL VASCULAR DISEASE, UNSPECIFIED 06/24/2017 Jennifer YATES MD Ot R06.02 SHORTNESS OF BREATH 07/14/2017 Jennifer YATES MD Ot E11.9 TYPE 2 DIABETES MELLITUS WITHOUT COMPLIC 07/14/2017 Jennifer YATES MD Ot I25.10 ATHSCL HEART DISEASE OF [place] CORONARY 07/14/2017 Jennifer YATES MD Ot R06.02 SHORTNESS OF BREATH 07/14/2017 Jennifer YATES MD Ot R07.89 OTHER CHEST PAIN Procedures Code Description Performed By Performed On 37.22 LEFT HEART CARDIAC CATH 05/18/2013 88.42 CONTRAST AORTOGRAM 05/18/2013 88.53 LT HEART ANGIOCARDIOGRAM 05/18/2013 88.56 CORONAR ARTERIOGR-2 CATH 05/18/2013 [id number] DILATION OF 2 COR ART WITH 2 DRUG-ELUT, 06/24/2016 [id number] MEASURE OF CARDIAC SAMPL PRESSURE, L H 06/24/2016 [id number] FLUOROSCOPY OF MULT COR ART USING L OSM 06/24/2016 [id number] FLUOROSCOPY OF LEFT HEART USING LOW OSMO 06/24/2016 Results Test Result Range Complete blood count (CBC) with automated white blood cell (WBC) differential - 06/24/16 09:08 Blood leukocytes automated count (number/volume) 12.6 10*3/uL 4.3-11.0 Blood erythrocytes automated count (number/volume) 4.89 10*6/uL 4.35-5.85 Venous blood hemoglobin measurement (mass/volume) 14.9 g/dL 13.3-17.7 Blood hematocrit (volume fraction) 44 % 40-54 Automated erythrocyte mean corpuscular volume 90 [foz_us] 80-99 Automated erythrocyte mean corpuscular hemoglobin (mass per erythrocyte) 31 pg 25-34 Automated erythrocyte mean corpuscular hemoglobin concentration measurement ( mass/volume) 34 g/dL 32-36 Automated erythrocyte distribution width ratio 17.1 % 10.0-14.5 Automated blood platelet count (count/volume) 281 10*3/uL 130-400 Automated blood platelet mean volume measurement 11.7 [foz_us] 7.4-10.4 Automated blood neutrophils/100 leukocytes 86 % 42-75 Automated blood lymphocytes/100 leukocytes 4 % 12-44 Blood monocytes/100 leukocytes 9 % 0-12 Automated blood eosinophils/100 leukocytes 1 % 0-10 Automated blood basophils/100 leukocytes 0 % 0-10 Blood neutrophils automated count (number/volume) 10.9 10*3 1.8-7.8 Blood lymphocytes automated count (number/volume) 0.5 10*3 1.0-4.0 Blood monocytes automated count (number/volume) 1.1 10*3 0.0-1.0 Automated eosinophil count 0.1 10*3/uL 0.0-0.3 Automated blood basophil count (count/volume) 0.0 10*3/uL 0.0-0.1 Blood manual differential performed detection - 06/24/16 09:08 Blood monocytes/100 leukocytes 4 % NRG Manual blood segmented neutrophils/100 leukocytes 75 % NRG Blood band neutrophils/100 leukocytes 17 % NRG Manual blood lymphocytes/100 leukocytes 4 % NRG Manual eosinophils/100 leukocytes in nose 0 % NRG Manual blood basophils/100 leukocytes 0 % NRG Blood anisocytosis detection by light microscopy SLIGHT NRG Blood poikilocytosis detection by light microscopy SLIGHT NRG PT panel in platelet poor plasma by coagulation assay - 06/24/16 09:30 Prothrombin time (PT) in platelet poor plasma by coagulation assay 13.3 s 12.2-14.7 INR in platelet poor plasma or blood by coagulation assay 1.0 0.8-1.4 Activated partial thromboplastin time (aPTT) in platelet poor plasma bycoagulation assay - 06/24/16 09:30 Activated partial thromboplastin time (aPTT) in platelet poor plasma bycoagulation assay 20 s 24-35 Comprehensive metabolic panel - 06/24/16 09:30 Serum or plasma sodium measurement (moles/volume) 140 mmol/L 135-145 Serum or plasma potassium measurement (moles/volume) 4.8 mmol/L 3.6-5.0 Serum or plasma chloride measurement (moles/volume) 111 mmol/L 98-107 Carbon dioxide 17 mmol/L 21-32 Serum or plasma anion gap determination (moles/volume) 12 mmol/L 5-14 Serum or plasma urea nitrogen measurement (mass/volume) 31 mg/dL 7-18 Serum or plasma creatinine measurement (mass/volume) 1.56 mg/dL 0.60-1.30 Serum or plasma urea nitrogen/creatinine mass ratio 20 NRG Serum or plasma creatinine measurement with calculation of estimated glomerular filtration rate 45 NRG Serum or plasma glucose measurement (mass/volume) 255 mg/dL 70-105 Serum or plasma calcium measurement (mass/volume) 8.9 mg/dL 8.5-10.1 Serum or plasma total bilirubin measurement (mass/volume) 0.5 mg/dL 0.1-1.0 Serum or plasma alkaline phosphatase measurement (enzymatic activity/volume) 76 U/L 40-136 Serum or plasma aspartate aminotransferase measurement (enzymatic activity/ volume) 40 U/L 5-34 Serum or plasma alanine aminotransferase measurement (enzymatic activity/volume ) 46 U/L 0-55 Serum or plasma protein measurement (mass/volume) 7.0 g/dL 6.4-8.2 Serum or plasma albumin measurement (mass/volume) 4.1 g/dL 3.2-4.5 Magnesium - 06/24/16 09:30 Magnesium 1.6 mg/dL 1.8-2.4 Serum or plasma troponin i.cardiac measurement (mass/volume) - 06/24/16 09:30 Serum or plasma troponin i.cardiac measurement (mass/volume) < ng/ mL <0.30 Myoglobin, serum - 06/24/16 09:30 Myoglobin, serum 502.2 ng/mL 10.0-92.0 Serum or plasma troponin i.cardiac measurement (mass/volume) - 06/24/16 15:16 Serum or plasma troponin i.cardiac measurement (mass/volume) 34.33 ng/mL <0.30 Capillary blood glucose measurement by glucometer (mass/volume) - 06/24/16 21: 59 Capillary blood glucose measurement by glucometer (mass/volume) 254 mg/dL 70-110 Automated blood complete blood count (hemogram) panel - 06/25/16 03:40 Blood leukocytes automated count (number/volume) 11.2 10*3/uL 4.3-11.0 Blood erythrocytes automated count (number/volume) 4.16 10*6/uL 4.35-5.85 Venous blood hemoglobin measurement (mass/volume) 12.8 g/dL 13.3-17.7 Blood hematocrit (volume fraction) 38 % 40-54 Automated erythrocyte mean corpuscular volume 91 [foz_us] 80-99 Automated erythrocyte mean corpuscular hemoglobin (mass per erythrocyte) 31 pg 25-34 Automated erythrocyte mean corpuscular hemoglobin concentration measurement ( mass/volume) 34 g/dL 32-36 Automated erythrocyte distribution width ratio 13.7 % 10.0-14.5 Automated blood platelet count (count/volume) 180 10*3/uL 130-400 Automated blood platelet mean volume measurement 11.0 [foz_us] 7.4-10.4 Whole blood basic metabolic panel - 06/25/16 03:40 Serum or plasma sodium measurement (moles/volume) 136 mmol/L 135-145 Serum or plasma potassium measurement (moles/volume) 4.6 mmol/L 3.6-5.0 Serum or plasma chloride measurement (moles/volume) 108 mmol/L 98-107 Carbon dioxide 16 mmol/L 21-32 Serum or plasma anion gap determination (moles/volume) 12 mmol/L 5-14 Serum or plasma urea nitrogen measurement (mass/volume) 35 mg/dL 7-18 Serum or plasma creatinine measurement (mass/volume) 1.49 mg/dL 0.60-1.30 Serum or plasma urea nitrogen/creatinine mass ratio 23 NRG Serum or plasma creatinine measurement with calculation of estimated glomerular filtration rate 47 NRG Serum or plasma glucose measurement (mass/volume) 216 mg/dL 70-105 Serum or plasma calcium measurement (mass/volume) 8.5 mg/dL 8.5-10.1 Lipid 1996 panel - 06/25/16 03:40 Serum or plasma triglyceride measurement (mass/volume) 208 mg/dL <150 Serum or plasma cholesterol measurement (mass/volume) 147 mg/dL < 200 Serum or plasma cholesterol in HDL measurement (mass/volume) 33 mg/ dL 40-60 Cholesterol in LDL [mass/volume] in serum or plasma by direct assay 83 mg/dL 1-129 Serum or plasma cholesterol in VLDL measurement (mass/volume) 42 mg/ dL 5-40 Serum or plasma troponin i.cardiac measurement (mass/volume) - 06/25/16 03:40 Serum or plasma troponin i.cardiac measurement (mass/volume) 30.44 ng/mL <0.30 Capillary blood glucose measurement by glucometer (mass/volume) - 06/25/16 11: 22 Capillary blood glucose measurement by glucometer (mass/volume) 225 mg/dL 70-110 Capillary blood glucose measurement by glucometer (mass/volume) - 06/25/16 16: 52 Capillary blood glucose measurement by glucometer (mass/volume) 178 mg/dL 70-110 Capillary blood glucose measurement by glucometer (mass/volume) - 06/26/16 09: 06 Capillary blood glucose measurement by glucometer (mass/volume) 290 mg/dL 70-110 Whole blood basic metabolic panel - 06/26/16 11:10 Serum or plasma sodium measurement (moles/volume) 137 mmol/L 135-145 Serum or plasma potassium measurement (moles/volume) 4.3 mmol/L 3.6-5.0 Serum or plasma chloride measurement (moles/volume) 108 mmol/L 98-107 Carbon dioxide 15 mmol/L 21-32 Serum or plasma anion gap determination (moles/volume) 14 mmol/L 5-14 Serum or plasma urea nitrogen measurement (mass/volume) 29 mg/dL 7-18 Serum or plasma creatinine measurement (mass/volume) 1.43 mg/dL 0.60-1.30 Serum or plasma urea nitrogen/creatinine mass ratio 20 NRG Serum or plasma creatinine measurement with calculation of estimated glomerular filtration rate 49 NRG Serum or plasma glucose measurement (mass/volume) 231 mg/dL 70-105 Serum or plasma calcium measurement (mass/volume) 9.2 mg/dL 8.5-10.1 Serum or plasma troponin i.cardiac measurement (mass/volume) - 06/26/16 11:10 Serum or plasma troponin i.cardiac measurement (mass/volume) 7.40 ng /mL <0.30 Capillary blood glucose measurement by glucometer (mass/volume) - 06/26/16 12: 44 Capillary blood glucose measurement by glucometer (mass/volume) 192 mg/dL 70-110 Complete blood count (CBC) with automated white blood cell (WBC) differential - 08/31/16 23:15 Blood leukocytes automated count (number/volume) 8.6 10*3/uL 4.3-11.0 Blood erythrocytes automated count (number/volume) 4.33 10*6/uL 4.35-5.85 Venous blood hemoglobin measurement (mass/volume) 13.1 g/dL 13.3-17.7 Blood hematocrit (volume fraction) 39 % 40-54 Automated erythrocyte mean corpuscular volume 90 [foz_us] 80-99 Automated erythrocyte mean corpuscular hemoglobin (mass per erythrocyte) 30 pg 25-34 Automated erythrocyte mean corpuscular hemoglobin concentration measurement ( mass/volume) 34 g/dL 32-36 Automated erythrocyte distribution width ratio 14.4 % 10.0-14.5 Automated blood platelet count (count/volume) 207 10*3/uL 130-400 Automated blood platelet mean volume measurement 10.6 [foz_us] 7.4-10.4 Automated blood neutrophils/100 leukocytes 59 % 42-75 Automated blood lymphocytes/100 leukocytes 29 % 12-44 Blood monocytes/100 leukocytes 8 % 0-12 Automated blood eosinophils/100 leukocytes 3 % 0-10 Automated blood basophils/100 leukocytes 1 % 0-10 Blood neutrophils automated count (number/volume) 5.1 10*3 1.8-7.8 Blood lymphocytes automated count (number/volume) 2.5 10*3 1.0-4.0 Blood monocytes automated count (number/volume) 0.7 10*3 0.0-1.0 Automated eosinophil count 0.3 10*3/uL 0.0-0.3 Automated blood basophil count (count/volume) 0.0 10*3/uL 0.0-0.1 Comprehensive metabolic panel - 08/31/16 23:15 Serum or plasma sodium measurement (moles/volume) 140 mmol/L 135-145 Serum or plasma potassium measurement (moles/volume) 4.4 mmol/L 3.6-5.0 Serum or plasma chloride measurement (moles/volume) 108 mmol/L 98-107 Carbon dioxide 19 mmol/L 21-32 Serum or plasma anion gap determination (moles/volume) 13 mmol/L 5-14 Serum or plasma urea nitrogen measurement (mass/volume) 25 mg/dL 7-18 Serum or plasma creatinine measurement (mass/volume) 1.70 mg/dL 0.60-1.30 Serum or plasma urea nitrogen/creatinine mass ratio 15 NRG Serum or plasma creatinine measurement with calculation of estimated glomerular filtration rate 40 NRG Serum or plasma glucose measurement (mass/volume) 156 mg/dL 70-105 Serum or plasma calcium measurement (mass/volume) 9.6 mg/dL 8.5-10.1 Serum or plasma total bilirubin measurement (mass/volume) 0.5 mg/dL 0.1-1.0 Serum or plasma alkaline phosphatase measurement (enzymatic activity/volume) 75 U/L 40-136 Serum or plasma aspartate aminotransferase measurement (enzymatic activity/ volume) 30 U/L 5-34 Serum or plasma alanine aminotransferase measurement (enzymatic activity/volume ) 37 U/L 0-55 Serum or plasma protein measurement (mass/volume) 7.2 g/dL 6.4-8.2 Serum or plasma albumin measurement (mass/volume) 4.3 g/dL 3.2-4.5 Complete urinalysis with reflex to culture - 08/31/16 23:35 Urine color determination RICH NRG Urine clarity determination VERY CLOUDY NRG Urine pH measurement by test strip 5 5-9 Specific gravity of urine by test strip 1.015 1.016- 1.022 Urine protein assay by test strip, semi-quantitative 2+ NEGATIVE Urine glucose detection by automated test strip NEGATIVE NEGATIVE Erythrocytes detection in urine sediment by light microscopy 5+ NEGATIVE Urine ketones detection by automated test strip NEGATIVE NEGATIVE Urine nitrite detection by test strip NEGATIVE NEGATIVE Urine total bilirubin detection by test strip NEGATIVE NEGATIVE Urine urobilinogen measurement by automated test strip (mass/volume) NORMAL NORMAL Urine leukocyte esterase detection by dipstick 1+ NEGATIVE Automated urine sediment erythrocyte count by microscopy (number/high power field) > [HPF] NRG Automated urine sediment leukocyte count by microscopy (number/high power field ) NONE NRG Bacteria detection in urine sediment by light microscopy TRACE NRG Crystals detection in urine sediment by light microscopy NONE NRG Casts detection in urine sediment by light microscopy NONE NRG Mucus detection in urine sediment by light microscopy NEGATIVE NRG Complete urinalysis with reflex to culture YES NRG Yeast detection in urine sediment by light microscopy FEW NRG Bacterial urine culture - 08/31/16 23:35 Bacterial urine culture [id number] NRG COLONY COUNT 10,000/ML - 100,000/ML NRG FTX;REPORTABLE SENSITIVITY REPORTED 09/02/16 8:45 NRG Bacterial susceptibility panel - 08/31/16 23:35 Gentamicin susceptibility test by minimum inhibitory concentration S NRG Vancomycin susceptibility test by minimum inhibitory concentration 1 NRG Levofloxacin susceptibility test by minimum inhibitory concentration 0.5 NRG Tetracycline susceptibility test by minimum inhibitory concentration >= NRG Ampicillin susceptibility test by minimum inhibitory concentration < = NRG Nitrofurantoin susceptibility test by minimum inhibitory concentration <= NRG Linezolid susceptibility test by minimum inhibitory concentration 2 NRG Encounters ACCT No. Visit Date/Time Discharge Status Pt. Type Provider Facility Loc./Unit Complaint [id number] 07/14/2017 06:52:00 07/14/2017 23:59:59 CLS Outpatient Jennifer YATES MD [facility] CARD I25.10 [id number] 06/23/2017 10:03:00 06/23/2017 23:59:59 CLS Outpatient Jennifer YATES MD [facility] CARD I25.10 [id number] 06/03/2017 12:41:00 06/03/2017 23:59:59 CLS Preadmit Jennifer YATES MD [facility] RAD I25.10 [id number] 01/20/2017 13:53:00 01/20/2017 23:59:59 CLS Outpatient KRISTIE SMITH MD [facility] RAD M25.561,M25.562 [id number] 08/31/2016 22:53:00 09/01/2016 01:00:00 DIS Emergency MARU EATON DO [facility] ER BLOOD IN URINE [id number] 06/25/2016 08:32:00 06/26/2016 13:30:00 DIS Inpatient Jennifer YATES MD [facility] ICU CHEST PAIN [id number] 12/24/2014 07:34:00 12/24/2014 23:59:59 CLS Outpatient RINKU FULLER DO [facility] CARD RUQ PAIN [id number] 12/13/2014 07:11:00 12/13/2014 23:59:59 CLS Outpatient AUSYTN FULLER DOI [facility] RAD ABD PAIN [id number] 05/18/2013 11:32:00 05/19/2013 11:55:00 DIS Inpatient RINKU FULLER DO [facility] CSD CHEST PAIN [id number] 08/26/2012 20:39:00 08/26/2012 23:15:00 DIS Emergency [id number] 08/25/2012 07:20:00 08/25/2012 10:44:00 DIS Emergency [id number] 07/19/2017 09:30:00 PEN Preadmit Jennifer YATES MD [facility] CATH CHEST DISCOMFORT [id number] 01/18/2017 15:07:53 01/18/2017 23:59:59 CLS Outpatient Cisco Smith
[2017-07-19] MEDS ORDERED: NS IV 1000 ML 1,000 ML IV SCH ×2 (07:00→10:38)
[2017-07-19] MEDS ORDERED: TICA90TA PO (07:31)
[2017-07-19] MEDS ORDERED: METO10TA3 PO (07:31)
[2017-07-19] MEDS ORDERED: CYAN1TAB18 PO (07:31)
[2017-07-19 08:08] LABS: HEMOGLOBIN 12.6 G/DL (13.3-17.7); MEAN PLATELET VOLUME 10.7 FL (7.4-10.4); RED BLOOD COUNT 4.07 10^6/uL (4.35-5.85); RED CELL DISTRIBUTION WIDTH 13.9 % (10.0-14.5); WHITE BLOOD COUNT 6.7 10^3/uL (4.3-11.0)
[2017-07-19 08:29] LABS: ALBUMIN 4.1 GM/DL (3.2-4.5); CALCIUM 9.3 MG/DL (8.5-10.1); CREATININE SERUM 1.47 MG/DL (0.60-1.30); POTASSIUM 4.3 MMOL/L (3.6-5.0); TOTAL PROTEIN 6.8 GM/DL (6.4-8.2)
[2017-07-19 08:49] LABS: BILIRUBIN,TOTAL 0.6 MG/DL (0.1-1.0)
[2017-07-19 09:09] LABS: INR 1.1 (0.8-1.4); PROTHROMBIN TIME PATIENT 14.5 SEC (12.2-14.7)
[2017-07-19] MEDS ORDERED: LIDOCAINE 1% INJ 50 ML (XYLOCAINE) VIAL ONE (09:29)
[2017-07-19] MEDS ORDERED: HEParin 1000 UNIT/ML (10ML VIAL) FOR BOLUS ONE (09:31)
[2017-07-19] MEDS ORDERED: fentaNYL INJECTION 100 MCG/2 ML AMP ONE (09:31)
[2017-07-19] MEDS ORDERED: VERAPAMIL 5 MG/2 ML (CALAN) VIAL IV ONE (09:31)
[2017-07-19] MEDS ORDERED: MIDAZOLAM 5 MG/5 ML (VERSED) VIAL ONE (09:31)
[2017-07-19] MEDS ORDERED: NITRO DRIP 25000 MCG/D5W 250 ML IV ONE (09:32)
--- NOTE | 2017-07-19 10:38 | Cardiac Procedure Note-CS/ASA ---
Pre-Procedure Note Pre-Op Procedure Note H&P Reviewed The H&P was reviewed, patient examined and no changes noted. Date H&P Reviewed: Jul 19, 2017 Time H&P Reviewed: 09:30 Conscious Sedation Pre-Proced Time Reviewed: 09:30 ASA Class: 3 Airway Mallampati Classification: (reno-sparks appropriate class) I. II. III, IV Lungs Heart ASA score ASA 1: a normal healthy patient ASA 2: a patient with a mild systemic disease (mid diabetes, controlled hypertension, obesity ASA 3: a patient with a severe systemic disease that limits activity (angina , COPD, prior Myocardial infarction) ASA 4: a patient with an incapacitating disease that is a constant threat to life (CHF, renal failure) ASA 5: a moribund patient not expected to survive 24 hrs. (ruptured aneurysm) ASA 6: a declared brain patient whose organs are being harvested. For emergent operations, add the letter E after the classification Grade 1 Sedation Plan: Analgesia, Amnesia, Plan communicated to team members, Discussed options with patient/fam, Discussed risks with patient/fam Note The patient is an appropriate candidate to undergo the planned procedure, sedation, and anesthesia. The patient immediately re-assessed prior to indication. Jennifer YATES MD Jul 19, 2017 10:38 am
[2017-07-19] MEDS ORDERED: PATIENT MAY USE OWN MEDS, ALL PO SCH (10:45)
--- NOTE | 2017-07-19 10:46 | Coronary Angiography Report ---
Coronary Angiography Report DATE OF PROCEDURE: 07/19/17 INDICATION: Chest pain, previous multiple PCI, abnormal nuclear stress test. PREOPERATIVE DIAGNOSIS: Chest pain, previous multiple PCI, abnormal nuclear stress test. POSTOPERATIVE DIAGNOSIS: patent stents, no severe CAD noted. HISTORY: this is a 67-year-old gentleman with previous history of multiple PCI including PCI to the LAD and distal RCA. In June 2016, PCI with drug- eluting stent was done to the mid RCA and mid left circumflex artery into OM1 artery. Patient has been on dual antiplatelet therapy since then. He presented with worsening chest discomfort. Pharmacological nuclear stress test showed possible lateral ischemia.Therefore, the patient was scheduled for coronary angiography. PROCEDURES PERFORMED: 1.Coronary angiography. 2. Left heart catheterization. 3. Aortic root injection. 4. Aortic arch angiography COMPLICATIONS: None. SPECIMENS: None. ESTIMATED BLOOD LOSS: 10 mL ANESTHESIA: Conscious sedation ANTICOAGULATION: IV heparin CONTRAST: 106 mL. FLUOROSCOPY: 10.6 minutes. 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 All the risks and complications were explained in detail; this included the risk of bleeding, vascular damage, stroke , CO and even . The patient was draped and prepped in the usual sterile fashion. Access was gained in the right radial artery with a 6 Russian sheath. left coronary angiography, acute injection and left heart catheterization was performed with the [place] catheter. right coronary angiography and arch angiography was performed with a JR4 catheter. FINDINGS: 1.Left main: patent. 2.LAD: patent stent in the proximal and mid LAD. Mild diffuse disease noted. Transapical vessel. A first diagonal artery has moderate ostial disease. 3.Left circumflex artery: patent stent in the mid left circumflex artery into OM1 artery. Mild diffuse disease noted distally. 4.RCA: patent stent in the mid RCA and distal RCA. No significant disease noted. 5.Left heart catheterization: Aortic pressure 131/73 mmHg. LV pressure 132/6 mmHg. LVEDP 17 mmHg. Normal LV function with no gradient across the aortic valve. 6. Aortic root injection: No evidence of regurgitation, patent ostium of the left main. 7. Aortic arch angiography: No evidence of dissection or aneurysm. Normal great arteries including brachiocephalic trunk, left common carotid artery, left subclavian artery. Tortuosity noted in the distal thoracic aorta. CONCLUSIONS: Patent stents with mild to moderate CAD. Mildly elevated LVEDP suggest diastolic dysfunction. Carlos Berg MD, FACP, FACC, [facility] Interventional Cardiology Jennifer BERG MD Jul 19, 2017 10:46 am
--- NOTE | 2017-07-19 10:47 | Discharge Inst-Post CATH ---
Discharge Inst-CATH Post Cardiac Cath D/C Inst Follow Up/Plan Dr. Berg in 2-3 weeks. CARDIAC CATH DISCHARGE INSTRUCTIONS *Hold Metformin for 48 hours post heart cath. ACTIVITY * Go Home directly and rest. * Limit activity of the leg (or wrist if it was used) for 7 days including aerobics, swimming, jogging, bicycling, etc. * Restrict stair-climbing for 7 days if possible, if not, climb up with your non -cath leg, then bring together on the same step. * Avoid lifting, pushing, pulling or excessive movement of the affected extremity for 7 days. * Customary sexual activity may be resumed after 2 days-use caution not to use a position that strains or causes pain to the affected extremity. * No driving for 24 hours. * NO SMOKING. * Avoid straining for bowel movements for 7 days. * Gentle walking on level ground is allowed. * Returning to work will depend on the type of procedure and the results. Your doctor will discuss this with you. CALL YOUR DOCTOR FOR ANY OF THE FOLLOWING: *If bleeding from the puncture site occurs- Apply gentle pressure to site with clean cloth and call your doctor or EMS. * If a knot or lump forms under the skin, increases in size, or causes pain. * If bruising appears to be worsening or moving further down your leg instead of disappearing. * Temperature above 101 F. CARE OF YOUR GROIN INCISION; * Bruising or purple discoloration of the skin near the puncture site is common. * You may shower only, no bathtub bathing for 5 days. Be careful to avoid slipping as your leg may feel stiff. * If a closure device was used on your femoral artery, please see the attached guide regarding care of the device and your leg. * REMOVE the dressing from your groin the next day after your procedure in the shower. CARE OF YOUR WRIST INCISION; * Bruising or purple discoloration of the skin near the puncture site is common. * You may shower. * DO NOT submerge wrist. * Remove dressing in 24 hours. Jennifer BERG MD Jul 19, 2017 10:47 am
--- NOTE | 2017-07-19 10:59 | Cardiology Discharge Summary ---
Diagnosis/Chief Complaint Date of Admission 07/19/2017 Date of Discharge 07/19/2017 Admission Diagnosis chest pain, history of CAD, abnormal nuclear stress test Final/Discharge Diagnosis patent stents, mild to moderate CAD Chief Complaint/HPI Chief Complaint/HPI this is a 67-year-old gentleman with history of multiple PCI in the past. Most recent PCI were done on 06/2016 with a drug-eluting stent in the mid RCA and another in the mid left circumflex artery into and OM1 artery. The patient was on dual antiplatelet therapy. He presented to the office with recurrent chest discomfort. Pharmacological nuclear stress test showed evidence of mild lateral ischemia. he was consented for coronary angiography. Discharge Summary Procedures coronary angiography revealed patent stents with mild to moderate CAD. please see report for further details. Discharge Physical Examination unremarkable. Hospital Course Unremarkable. Pending Labs Laboratory Tests 07/19/17 08:00: White Blood Count 6.7, Red Blood Count 4.07, Hemoglobin 12.6, Hematocrit 38, Mean Corpuscular Volume 92, Mean Corpuscular Hemoglobin 31, Mean Corpuscular Hemoglobin Concent 34, Red Cell Distribution Width 13.9, Platelet Count 174, Mean Platelet Volume 10.7, Prothrombin Time 14.5, INR Comment 1.1, Activated Partial Thromboplast Time 35, Sodium Level 140, Potassium Level 4.3, Chloride Level 111, Carbon Dioxide Level 19, Anion Gap 10, Blood Urea Nitrogen 23, Creatinine 1.47, Estimat Glomerular Filtration Rate 48, BUN/Creatinine Ratio 16 , Glucose Level 159, Calcium Level 9.3, Total Bilirubin 0.6, Aspartate Amino Transf (AST/SGOT) 23, Alanine Aminotransferase (ALT/SGPT) 29, Alkaline Phosphatase 67, Total Protein 6.8, Albumin 4.1 Discussion & Recommendations Discussion discharge instructions discussed at length with the patient and family. We will change Brilinta to Plavix 75 mg daily long-term in one week. Follow-up in one to 2 weeks. Follow up appt.: Dr. Berg in one to 2 weeks. Dicharge Diet: Cardiac Diet Activity as Tolerated: Yes Home Medications Reviewed patient Home Medication Reconciliation performed by pharmacy medication reconciliations county program technician and/or nursing. Patients Allergies have been reviewed. Discharge Home Medications: Reviewed and agree with Discharge Medication list on patient's Discharge Instruction sheet Condition at discharge stable. Instructions to patient/family Dr. Berg in 2-3 weeks. Jennifer BERG MD Jul 19, 2017 10:59 am
--- NOTE | 2017-07-19 15:01 | Cardiology Stress Test Report ---
Stress Test Report Type of NM Stress Test: Test Type: LEXISCAN 0.4MG/5ML Date of Procedure/Referring: Date of Procedure: Jul 14, 2017 PCP Jennifer Berg MD Admitting Physician Sharron Parsons DO Indications: Chest pain, history of CAD, history of multiple PCI Baseline Heart Rate: 78 Baseline Blood Pressure: Blood Pressure Systolic: 151 Blood Pressure Diastolic: 76 Baseline EKG: Baseline EKG: Sinus rhythm. Summary: The patient was brought to the stress lab after informed consent was taken. Lexiscan stress test was done according to the protocol. 0.4 mg of IV Lexiscan was given. Low-grade exercise was performed. Baseline EKG was sinus rhythm at 78 BPM. Blood pressure 151/76 mmHg. Maximum heart rate was 120 BPM and blood pressure 179/67 mmHg. No chest pain, EKG changes or arrhythmias were noted. 10.71 mCi of Myoview was given for rest imaging and 32.3 mCi of Myoview was given for stress imaging. Transient ischemic dilatation score was 1.03. EF 49 percent. No wall motion abnormalities. Moderate lateral reversible defect. There is a small apical reversible defect. SSS 7, SRS 5, SDS 2. Conclusion: Pharmacological stress test is negative for ischemia. Normal LV function with no wall motion on the mattress. Evidence of lateral ischemia on perfusion imaging. Coronary angiography is recommended. Jennifer BERG MD Jul 19, 2017 15:01
== END 2017-07-19 13:18 | disposition home or self-care (01) ==
LOC: CATH 06:48 → SURG 11:13 → CATH 13:18
PROVIDERS: ATTEND Internal Medicine Interventional Cardiology
DX: I25.10 Atherosclerotic heart disease of native coronary artery without angina pectoris (principal); I10 Essential (primary) hypertension; E78.5 Hyperlipidemia, unspecified; E11.9 Type 2 diabetes mellitus without complications; E66.9 Obesity, unspecified; Z68.41 Body mass index [BMI] 40.0-44.9, adult; Z95.5 Presence of coronary angioplasty implant and graft; Z79.02 Long term (current) use of antithrombotics/antiplatelets; Z79.82 Long term (current) use of aspirin; Z79.84 Long term (current) use of oral hypoglycemic drugs; Z79.899 Other long term (current) drug therapy
CPT/HCPCS: 36221; 36415; 36430; 80053; 85027; 85610; 85730; 87081; 93458

== ENCOUNTER → 2017-12-30 | Outpatient (CLI) | payer MEDICARE ==
[~2017-12-30] VITALS: Ht 182.9 cm; Wt 136.1 kg
[~2017-12-30] MED LIST changes: +CATHETER FLUSH 10 ML SYR IV PRN; +CLON2TAB12 PO; -CLON2TAB3 PO; +CLOP75TA69 PO; +CYAN1TAB18 PO; +FINA5TAB6 PO; +IOHEXOL 350 MG/ML 100 ML (OMNIPAQUE 350) VIAL IV ONE; +LOSA100T8 PO; +MELO15TA39 PO; +METO10TA3 PO; +NF-GLIP2.5 PO; +NS 250 ML (IVPB) BAG IV ONE; +NS IV 500 ML 500 ML IV SCH; +PANT40TA3 PO; +SITA100T12 PO; +TIZA4CAP8 PO
[2017-12-30 10:14] LABS: CALCIUM 9.7 MG/DL (8.5-10.1); CREATININE SERUM 1.39 MG/DL (0.60-1.30); POTASSIUM 4.7 MMOL/L (3.6-5.0)
[2017-12-30 12:20] VITALS: BP 125/88
--- NOTE | 2017-12-30 14:26 | Diagnostic Imaging Report ---
PROCEDURE: CT abdomen and pelvis with contrast. TECHNIQUE: Multiple contiguous axial images were obtained through the abdomen and pelvis after administration of intravenous contrast. INDICATION: Constipation x30 days. CORRELATION STUDY: 08/31/2016. FINDINGS: LOWER THORAX: Clear. There is presence of moderate coronary artery calcification. LIVER: Unremarkable. GALLBLADDER: Present and unremarkable. No bile duct dilatation. SPLEEN: Unremarkable. PANCREAS: Unremarkable. ADRENAL GLANDS: Unremarkable. KIDNEYS: Rounded low-density masses of both kidneys, compatible with cysts. A few nonobstructing bilateral renal stones present. No hydronephrosis. ABDOMINAL AORTA: Unremarkable, nonaneurysmal. Right-sided accessory renal artery. GASTROINTESTINAL TRACT: Stomach is relatively collapsed. Small bowel appearing unremarkable. There is mild severity of fecal retention. No evidence for significant constipation or fecal impaction. There are few scattered colonic diverticula present without evidence for acute diverticulitis. Small fat-containing midline abdominal wall hernia present. No bowel involvement. No abdominal ascites or free air. URINARY BLADDER: Unremarkable. REPRODUCTIVE: Prostate gland appearing unremarkable. OSSEOUS STRUCTURES: Extensive prior surgical changes of the lumbar spine with multilevel lumbar spinal fusion and decompressive laminectomies from L2 through L5. There is a fluid collection in the laminectomy bed again demonstrated. Potential effacement of the thecal sac is not excluded. OTHER: None. IMPRESSION: 1. Mild severity of fecal retention. No evidence for overt constipation or fecal impaction. No bowel obstruction or inflammation. Diverticulosis. 2. Nonobstructing renal stones. Bilateral renal cysts. Dictated by: Dictated on workstation # [id number]
== END ==
LOC: RAD 09:37
PROVIDERS: ATTEND Internal Medicine
DX: K59.00 Constipation, unspecified (principal)
CPT/HCPCS: 36415; 74177; 80048; 96360; 96361

== ENCOUNTER 2018-01-16 05:41 | Outpatient (CLI) | payer MEDICARE ==
[~2018-01-16] VITALS: Ht 182.9 cm; Wt 113.4 kg
[~2018-01-16 05:41] MED LIST changes: -CATHETER FLUSH 10 ML SYR IV PRN; -CLOP75TA69 PO; -FINA5TAB6 PO; -IOHEXOL 350 MG/ML 100 ML (OMNIPAQUE 350) VIAL IV ONE; -LOSA100T8 PO; -MELO15TA39 PO; -NF-GLIP2.5 PO; -NS 250 ML (IVPB) BAG IV ONE; -NS IV 500 ML 500 ML IV SCH; -PANT40TA3 PO; -SITA100T12 PO; -TIZA4CAP8 PO
[2018-01-16] MEDS ORDERED: CLOP75TA69 PO (14:11)
[2018-01-16] MEDS ORDERED: LOSA100T8 PO (14:11)
[2018-01-16] MEDS ORDERED: NF-GLIP2.5 PO (14:11)
[2018-01-16] MEDS ORDERED: PANT40TA3 PO (14:11)
[2018-01-16] MEDS ORDERED: MELO15TA39 PO (14:11)
[2018-01-16] MEDS ORDERED: LOVA40TA2 PO (14:11)
[2018-01-16] MEDS ORDERED: FINA5TAB6 PO (14:11)
[2018-01-16] MEDS ORDERED: ALLO300T2 PO (14:11)
[2018-01-16] MEDS ORDERED: TIZA4CAP8 PO (14:11)
[2018-01-16] MEDS ORDERED: SITA100T12 PO (14:11)
== END 2018-01-16 14:15 | disposition home or self-care (01) ==
LOC: PREOP 05:41
PROVIDERS: ATTEND Surgery
DX: Z01.818 Encounter for other preprocedural examination (principal)

== ENCOUNTER 2018-01-18 09:44 | Day surgery (SDC) | payer MEDICARE ==
[~2018-01-18] VITALS: Ht 182.9 cm; Wt 113.4 kg
[~2018-01-18 09:44] MED LIST changes: +CLOP75TA69 PO; +FINA5TAB6 PO; +LOSA100T8 PO; +MELO15TA39 PO; +NF-GLIP2.5 PO; +PANT40TA3 PO; +SITA100T12 PO; +TIZA4CAP8 PO
[2018-01-18] MEDS ORDERED: NS IV 500 ML 500 ML ONE (10:01)
[2018-01-18] MEDS ORDERED: NS IV 500 ML 500 ML IV PRN (10:03)
[2018-01-18] MEDS ORDERED: fentaNYL INJECTION 100 MCG/2 ML AMP IVP ONE (10:15)
[2018-01-18] MEDS ORDERED: MIDAZOLAM 2 MG/2 ML (VERSED) VIAL IVP ONE (10:15)
[2018-01-18] MEDS ORDERED: LIDOCAINE JELLY 2% (XYLOCAINE) 5 ML TUBE MM PRN (10:15)
[2018-01-18 10:16] VITALS: BP 136/85
--- OUTSIDE RECORDS SUMMARY | 2018-01-18 10:59 | XMS REPORT | Continuity of Care Document ---
Author Author [facility] Organization [facility] Address Unknown Phone Unavailable Allergies Active Description Code Type Severity Reaction Onset Reported/Identified Relationship to Patient Clinical Status Yes No Known Drug Allergies [id number] Drug Allergy Unknown N/A 01/16/2018 Medications There is no data. Problems Date Dx Coded Attending Type Code Diagnosis Diagnosed By 05/19/2013 ALINA RICHARDS RINKU Ot 250.60 DIAB W NEURO MANIFEST, TYPE II OR UNSPEC 05/19/2013 ALINA RICHARDS RINKU Ot 272.0 PURE HYPERCHOLESTEROLEM 05/19/2013 ALINA RICHARDS RINKU Ot 272.4 HYPERLIPIDEMIA NEC/NOS 05/19/2013 ALINA RICHARDS RINKU Ot 311 DEPRESSIVE DISORDER NEC 05/19/2013 ALINA RICHARDS RINKU Ot 338.29 OTHER CHRONIC PAIN 05/19/2013 ALINA RICHARDS RINKU Ot 357.2 NEUROPATHY IN DIABETES 05/19/2013 ALINA RICHARDS RINKU Ot 401.9 HYPERTENSION NOS 05/19/2013 ALINA RICHARDS RINKU Ot 410.71 AC MYOCARDIAL INFARCT,SUBENDO INFARCT,IN 05/19/2013 ALINA RICHARDS RINKU Ot 414.01 CORONARY ATHEROSCLEROSIS OF [place] CORON 05/19/2013 ALINA RICHARDS RINKU Ot 530.81 ESOPHAGEAL REFLUX 05/19/2013 ALINA RICHARDS RINKU Ot 592.0 CALCULUS OF KIDNEY 05/19/2013 ALINA RICHARDS RINKU Ot 724.5 BACKACHE NOS 05/19/2013 ALINA RICHARDS RINKU Ot 782.3 EDEMA 12/27/2014 FULLER DO, RINKU Ot 789.01 01/02/2015 FULLER DO, RINKU Ot 789.00 01/09/2015 FULLER DO RINKU Ot 789.00 01/14/2015 FULLER DO RINKU Ot 789.01 01/24/2015 FULLER DO RINKU Ot 789.01 06/24/2016 ALINA RICHARDS RINKU Ot 789.00 ABDOMINAL PAIN, UNSPECIFIED SITE 06/24/2016 RINKU FULLER DO Ot 789.01 ABDOMINAL PAIN, RIGHT UPPER QUADRANT 06/26/2016 Jennifer YATES MD Ot E11.22 TYPE 2 DIABETES MELLITUS W DIABETIC JEWELRY ENAMELER 06/26/2016 Jennifer YATES MD, Ot E11.43 TYPE 2 DIABETES W DIABETIC AUTONOMIC (PO 06/26/2016 Jennifer YATES MD, Ot E78.5 HYPERLIPIDEMIA, UNSPECIFIED 06/26/2016 Jennifer YATES MD, Ot I12.9 HYPERTENSIVE CHRONIC KIDNEY DISEASE W ST 06/26/2016 Jennifer YATES MD, Ot I21.4 NON-ST ELEVATION (NSTEMI) MYOCARDIAL INF 06/26/2016 Jennifer YATES MD, Ot I25.10 ATHSCL HEART DISEASE OF [place] CORONARY 06/26/2016 Jennifer YATES MD, Ot I47.2 VENTRICULAR TACHYCARDIA 06/26/2016 Jennifer YATES MD, Ot K21.9 GASTRO-ESOPHAGEAL REFLUX DISEASE WITHOUT 06/26/2016 Jennifer YATES MD Ot M10.9 GOUT, UNSPECIFIED 06/26/2016 Jennifer YATES MD, Ot M48.9 SPONDYLOPATHY, UNSPECIFIED 06/26/2016 Jennifer YATES MD, Ot N18.9 CHRONIC KIDNEY DISEASE, UNSPECIFIED 06/26/2016 Jennifer YATES MD Ot N20.0 CALCULUS OF KIDNEY 06/26/2016 Jennifer YATES MD Ot N40.0 BENIGN PROSTATIC HYPERPLASIA WITHOUT LOW 06/26/2016 Jennifer YATES MD Ot R53.81 OTHER MALAISE 06/26/2016 Jennifer YATES MD, Ot Z79.84 LOSS PREVENTION LEAD (CURRENT) USE OF ORAL HYPOGLYC 06/26/2016 Jennifer YATES MD Ot Z95.5 PRESENCE OF CORONARY ANGIOPLASTY IMPLANT 07/01/2016 RINKU FULLER DO Ot 789.00 ABDOMINAL PAIN, UNSPECIFIED SITE 07/01/2016 RINKU FULLER DO Ot 789.01 ABDOMINAL PAIN, RIGHT UPPER QUADRANT 09/01/2016 MARU EATON DO Ot E11.9 TYPE 2 DIABETES MELLITUS WITHOUT COMPLIC 09/01/2016 MARU EATON DO Ot R31.9 HEMATURIA, UNSPECIFIED 09/01/2016 MARU EATON DO, Ot Z79.82 PRISON (CURRENT) USE OF ASPIRIN 09/01/2016 MARU EATON DO Ot Z79.84 LOSS PREVENTION LEAD (CURRENT) USE OF ORAL HYPOGLYC 09/01/2016 MARU EATON DO Ot Z79.899 OTHER LOSS PREVENTION LEAD (CURRENT) DRUG THERAPY 09/01/2016 MARU EATON DO Ot Z95.5 PRESENCE OF CORONARY ANGIOPLASTY IMPLANT 09/01/2016 MARU EATON DO Ot E11.9 TYPE 2 DIABETES MELLITUS WITHOUT COMPLIC 09/01/2016 MARU EATON DO, Ot R31.9 HEMATURIA, UNSPECIFIED 09/01/2016 MARU EATON DO Ot Z79.82 PRISON (CURRENT) USE OF ASPIRIN 09/01/2016 MARU EATON DO Ot Z79.84 LOSS PREVENTION LEAD (CURRENT) USE OF ORAL HYPOGLYC 09/01/2016 MARU EATON DO, Ot Z79.899 OTHER PRISON (CURRENT) DRUG THERAPY 09/01/2016 MARU EATON DO Ot Z95.5 PRESENCE OF CORONARY ANGIOPLASTY IMPLANT 01/19/2017 ALINA RICHARDS RINKU Ot 789.00 ABDOMINAL PAIN, UNSPECIFIED SITE 01/19/2017 ALINA RICHARDS RINKU Ot 789.01 ABDOMINAL PAIN, RIGHT UPPER QUADRANT 01/19/2017 ALINA RICHARDS RINKU Ot 789.00 ABDOMINAL PAIN, UNSPECIFIED SITE 01/19/2017 AUSTYN FULLER DOI Ot 789.01 ABDOMINAL PAIN, RIGHT UPPER QUADRANT 01/26/2017 SARAH ACEVES, KRISTIE Wing Ot I83.92 ASYMPTOMATIC VARICOSE VEINS OF LEFT LOWE 01/26/2017 SARAH ACEVES, KRISTIE Wing Ot M17.12 UNILATERAL PRIMARY OSTEOARTHRITIS, LEFT 01/26/2017 SARAH ACEVES, KRISTIE Wing Ot M25.461 EFFUSION, RIGHT KNEE 01/26/2017 SARAH ACEVES, KRISTIE Wing Ot R60.0 LOCALIZED EDEMA 01/26/2017 SARAH ACEVES, KRISTIE Wing Ot I83.92 ASYMPTOMATIC VARICOSE VEINS OF LEFT LOWE 01/26/2017 SARAH ACEVES, KRISTIE Wing Ot M17.12 UNILATERAL PRIMARY OSTEOARTHRITIS, LEFT 01/26/2017 SARAH ACEVES, KRISTIE Wing Ot M25.461 EFFUSION, RIGHT KNEE 01/26/2017 SARAH ACEVES, KRISTIE R Ot R60.0 LOCALIZED EDEMA 01/28/2017 SARAH ACEVES, KRISTIE R Ot I83.92 ASYMPTOMATIC VARICOSE VEINS OF LEFT LOWE 01/28/2017 SARAH ACEVES, KRISTIE Wing Ot M17.12 UNILATERAL PRIMARY OSTEOARTHRITIS, LEFT 01/28/2017 SARAH ACEVES, KRISTIE Wing Ot M25.461 EFFUSION, RIGHT KNEE 01/28/2017 SARAH ACEVES, KRISTIE R Ot R60.0 LOCALIZED EDEMA 02/15/2017 SARAH ACEVES, KRISTIE R Ot I83.92 ASYMPTOMATIC VARICOSE VEINS OF LEFT LOWE 02/15/2017 SARAH ACEVES, KRISTIE R Ot M17.12 UNILATERAL PRIMARY OSTEOARTHRITIS, LEFT 02/15/2017 SARAH ACEVES, KRISTIE Wing Ot M25.461 EFFUSION, RIGHT KNEE 02/15/2017 SARAH ACEVES, KRISTIE R Ot R60.0 LOCALIZED EDEMA 02/24/2017 SARAH ACEVES, KRISTIE R Ot I83.92 ASYMPTOMATIC VARICOSE VEINS OF LEFT LOWE 02/24/2017 SARAH ACEVES, KRISTIE Wing Ot M17.12 UNILATERAL PRIMARY OSTEOARTHRITIS, LEFT 02/24/2017 SARAH ACEVES, KRISTIE Wing Ot M25.461 EFFUSION, RIGHT KNEE 02/24/2017 SARAH ACEVES, KRISTIE R Ot R60.0 LOCALIZED EDEMA 06/21/2017 TRUDY ACEVES, Jennifer MAIN Ot I25.10 ATHSCL HEART DISEASE OF [place] CORONARY 06/21/2017 AUSTYN FULLER DOI Ot 789.00 ABDOMINAL PAIN, UNSPECIFIED SITE 06/21/2017 AUSTYN FULLER DOI Ot 789.01 ABDOMINAL PAIN, RIGHT UPPER QUADRANT 06/21/2017 SARAH ACEVES, KRISTIE R Ot I83.92 ASYMPTOMATIC VARICOSE VEINS OF LEFT LOWE 06/21/2017 SARAH ACEVES, KRISTIE Wing Ot M17.12 UNILATERAL PRIMARY OSTEOARTHRITIS, LEFT 06/21/2017 SARAH ACEVES, KRISTIE Wing Ot M25.461 EFFUSION, RIGHT KNEE 06/21/2017 SARAH ACEVES, KRISTIE R Ot R60.0 LOCALIZED EDEMA 06/21/2017 TRUDY ACEVES, Jennifer MAIN Ot I25.10 ATHSCL HEART DISEASE OF [place] CORONARY 06/23/2017 FULLER DO, RINKU Ot 789.00 ABDOMINAL PAIN, UNSPECIFIED SITE 06/23/2017 ALINA RICHARDS, RINKU Ot 789.01 ABDOMINAL PAIN, RIGHT UPPER QUADRANT 06/23/2017 SARAH ACEVES, KRISTIE Wing Ot I83.92 ASYMPTOMATIC VARICOSE VEINS OF LEFT LOWE 06/23/2017 KRISTIE SMITH MD Ot M17.12 UNILATERAL PRIMARY OSTEOARTHRITIS, LEFT 06/23/2017 KRISTIE SMITH MD Ot M25.461 EFFUSION, RIGHT KNEE 06/23/2017 KRISTIE SMITH MD Ot R60.0 LOCALIZED EDEMA 06/23/2017 Jennifer YATES MD Ot I25.10 ATHSCL HEART DISEASE OF [place] CORONARY 06/24/2017 Jennifer YATES MD Ot E11.9 TYPE 2 DIABETES MELLITUS WITHOUT COMPLIC 06/24/2017 Jennifer YATES MD Ot I25.10 ATHSCL HEART DISEASE OF [place] CORONARY 06/24/2017 Jennifer YATES MD Ot I73.9 PERIPHERAL VASCULAR DISEASE, UNSPECIFIED 06/24/2017 Jennifer YATES MD Ot R06.02 SHORTNESS OF BREATH 07/14/2017 Jennifer YATES MD Ot E11.9 TYPE 2 DIABETES MELLITUS WITHOUT COMPLIC 07/14/2017 Jennifer YATES MD Ot I25.10 ATHSCL HEART DISEASE OF [place] CORONARY 07/14/2017 Jennifer YATES MD Ot R06.02 SHORTNESS OF BREATH 07/14/2017 Jennifer YATES MD Ot R07.89 OTHER CHEST PAIN 07/19/2017 TRUDY ACEVES M ETELVINA Ot E11.9 TYPE 2 DIABETES MELLITUS WITHOUT COMPLIC 07/19/2017 Jennifer YATES MD Ot I25.10 ATHSCL HEART DISEASE OF [place] CORONARY 07/19/2017 Jennifer YATES MD Ot I73.9 PERIPHERAL VASCULAR DISEASE, UNSPECIFIED 07/19/2017 Jennifer YATES MD Ot R06.02 SHORTNESS OF BREATH 07/19/2017 Jennifer YATES MD Ot E11.9 TYPE 2 DIABETES MELLITUS WITHOUT COMPLIC 07/19/2017 Jennifer YATES MD Ot E66.9 OBESITY, UNSPECIFIED 07/19/2017 Jennifer YATES MD Ot E78.5 HYPERLIPIDEMIA, UNSPECIFIED 07/19/2017 Jennifer YATES MD Ot I10 ESSENTIAL (PRIMARY) HYPERTENSION 07/19/2017 Jennifer YATES MD Ot I25.10 ATHSCL HEART DISEASE OF [place] CORONARY 07/19/2017 Jennifer YATES MD Ot Z68.41 BODY MASS INDEX (BMI) 40.0-44.9, ADULT 07/19/2017 Jennifer YATES MD Ot Z79.02 LOSS PREVENTION LEAD (CURRENT) USE OF ANTITHROMBOTI 07/19/2017 Jennifer YATES MD Ot Z79.82 PRISON (CURRENT) USE OF ASPIRIN 07/19/2017 Jennifer YATES MD Ot Z79.84 LOSS PREVENTION LEAD (CURRENT) USE OF ORAL HYPOGLYC 07/19/2017 Jennifer YATES MD Ot Z79.899 OTHER PRISON (CURRENT) DRUG THERAPY 07/19/2017 Jennifer YATES MD Ot Z95.5 PRESENCE OF CORONARY ANGIOPLASTY IMPLANT 07/20/2017 Jennifer YATES MD Ot E11.9 TYPE 2 DIABETES MELLITUS WITHOUT COMPLIC 07/20/2017 Jennifer YATES MD Ot I25.10 ATHSCL HEART DISEASE OF [place] CORONARY 07/20/2017 Jennifer YATES MD Ot R06.02 SHORTNESS OF BREATH 07/20/2017 Jennifer YATES MD Ot R07.89 OTHER CHEST PAIN 07/20/2017 Jennifer YATES MD Ot E11.9 TYPE 2 DIABETES MELLITUS WITHOUT COMPLIC 07/20/2017 Jennifer YATES MD Ot E66.9 OBESITY, UNSPECIFIED 07/20/2017 Jennifer YATES MD Ot E78.5 HYPERLIPIDEMIA, UNSPECIFIED 07/20/2017 Jennifer YATES MD Ot I10 ESSENTIAL (PRIMARY) HYPERTENSION 07/20/2017 Jennifer YATES MD Ot I25.10 ATHSCL HEART DISEASE OF [place] CORONARY 07/20/2017 Jennifer YATES MD Ot Z68.41 BODY MASS INDEX (BMI) 40.0-44.9, ADULT 07/20/2017 Jennifer YATES MD Ot Z79.02 LOSS PREVENTION LEAD (CURRENT) USE OF ANTITHROMBOTI 07/20/2017 Jennifer YATES MD Ot Z79.82 PRISON (CURRENT) USE OF ASPIRIN 07/20/2017 Jennifer YATES MD, Ot Z79.84 LOSS PREVENTION LEAD (CURRENT) USE OF ORAL HYPOGLYC 07/20/2017 Jennifer YATES MD, Ot Z79.899 OTHER LOSS PREVENTION LEAD (CURRENT) DRUG THERAPY 07/20/2017 Jennifer YATES MD Ot Z95.5 PRESENCE OF CORONARY ANGIOPLASTY IMPLANT 07/20/2017 Jennifer YATES MD Ot E11.9 TYPE 2 DIABETES MELLITUS WITHOUT COMPLIC 07/20/2017 Jennifer YATES MD Ot I25.10 ATHSCL HEART DISEASE OF [place] CORONARY 07/20/2017 Jennifer YATES MD Ot I73.9 PERIPHERAL VASCULAR DISEASE, UNSPECIFIED 07/20/2017 Jennifer YATES MD Ot R06.02 SHORTNESS OF BREATH 08/03/2017 Jennifer YATES MD Ot E11.9 TYPE 2 DIABETES MELLITUS WITHOUT COMPLIC 08/03/2017 Jennifer YATES MD Ot I25.10 ATHSCL HEART DISEASE OF [place] CORONARY 08/03/2017 Jennifer YATES MD Ot R06.02 SHORTNESS OF BREATH 08/03/2017 Jennifer YATES MD Ot R07.89 OTHER CHEST PAIN 08/05/2017 Jennifer YATES MD Ot E11.9 TYPE 2 DIABETES MELLITUS WITHOUT COMPLIC 08/05/2017 Jennifer YATES MD Ot E66.9 OBESITY, UNSPECIFIED 08/05/2017 Jennifer YATES MD Ot E78.5 HYPERLIPIDEMIA, UNSPECIFIED 08/05/2017 Jennifer YATES MD Ot I10 ESSENTIAL (PRIMARY) HYPERTENSION 08/05/2017 Jennifer YATES MD Ot I25.10 ATHSCL HEART DISEASE OF [place] CORONARY 08/05/2017 Jennifer YATES MD, Ot Z68.41 BODY MASS INDEX (BMI) 40.0-44.9, ADULT 08/05/2017 Jennifer YATES MD, Ot Z79.02 LOSS PREVENTION LEAD (CURRENT) USE OF ANTITHROMBOTI 08/05/2017 Jennifer YATES MD, Ot Z79.82 LOSS PREVENTION LEAD (CURRENT) USE OF ASPIRIN 08/05/2017 Jennifer YATES MD, Ot Z79.84 PRISON (CURRENT) USE OF ORAL HYPOGLYC 08/05/2017 Jennifer YATES MD, Ot Z79.899 OTHER LOSS PREVENTION LEAD (CURRENT) DRUG THERAPY 08/05/2017 Jennifer YATES MD, Ot Z95.5 PRESENCE OF CORONARY ANGIOPLASTY IMPLANT 12/30/2017 RINKU FULLER DO Ot 789.00 ABDOMINAL PAIN, UNSPECIFIED SITE 12/30/2017 RINKU FULLER DO Ot 789.01 ABDOMINAL PAIN, RIGHT UPPER QUADRANT 12/30/2017 KRISTIE SMITH MD Ot I83.92 ASYMPTOMATIC VARICOSE VEINS OF LEFT LOWE 12/30/2017 KRISTIE SMITH MD Ot M17.12 UNILATERAL PRIMARY OSTEOARTHRITIS, LEFT 12/30/2017 KRISTIE SMITH MD, Ot M25.461 EFFUSION, RIGHT KNEE 12/30/2017 KRISTIE SMITH MD Ot R60.0 LOCALIZED EDEMA 12/30/2017 Jennifer YATES MD Ot E11.9 TYPE 2 DIABETES MELLITUS WITHOUT COMPLIC 12/30/2017 Jennifer YATES MD, Ot I25.10 ATHSCL HEART DISEASE OF [place] CORONARY 12/30/2017 Jennifer YATES MD, Ot I73.9 PERIPHERAL VASCULAR DISEASE, UNSPECIFIED 12/30/2017 Jennifer YATES MD Ot R06.02 SHORTNESS OF BREATH 12/30/2017 Jennifer YATES MD, Ot E11.9 TYPE 2 DIABETES MELLITUS WITHOUT COMPLIC 12/30/2017 Jennifer YATES MD, Ot I25.10 ATHSCL HEART DISEASE OF [place] CORONARY 12/30/2017 Jennifer YATES MD, Ot R06.02 SHORTNESS OF BREATH 12/30/2017 Jennifer YATES MDZWAN Ot R07.89 OTHER CHEST PAIN 12/30/2017 TRUDY ACEVES M ETELVINA Ot I25.10 ATHSCL HEART DISEASE OF [place] CORONARY 01/04/2018 RINKU FULLER DO Ot K59.00 CONSTIPATION, UNSPECIFIED 01/06/2018 RINKU FULLER DO Ot K59.00 CONSTIPATION, UNSPECIFIED 01/16/2018 TRUDY ACEVES M ETELVINA Ot I25.10 ATHSCL HEART DISEASE OF [place] CORONARY Procedures Code Description Performed By Performed On 37.22 LEFT HEART CARDIAC CATH 05/18/2013 88.42 CONTRAST AORTOGRAM 05/18/2013 88.53 LT HEART ANGIOCARDIOGRAM 05/18/2013 88.56 CORONAR ARTERIOGR-2 CATH 05/18/2013 [id number] DILATION OF 2 COR ART WITH 2 DRUG-ELUT, 06/24/2016 [id number] MEASURE OF CARDIAC SAMPL PRESSURE, L H 06/24/2016 [id number] FLUOROSCOPY OF MULT COR ART USING L OSM 06/24/2016 [id number] FLUOROSCOPY OF LEFT HEART USING LOW OSMO [...] culture - 08/31/16 23:35 Bacterial urine culture [id number] NRG COLONY COUNT 10,000/ML - 100,000/ML NRG [...] test by minimum inhibitory concentration 2 NRG Automated blood complete blood count (hemogram) panel - 07/19/17 08:00 Blood leukocytes automated count (number/volume) 6.7 10*3/uL 4.3-11.0 Blood erythrocytes automated count (number/volume) 4.07 10*6/uL 4.35-5.85 Venous blood hemoglobin measurement (mass/volume) 12.6 g/dL 13.3-17.7 Blood hematocrit (volume fraction) 38 % 40-54 Automated erythrocyte mean corpuscular volume 92 [foz_us] 80-99 Automated erythrocyte mean corpuscular hemoglobin (mass per erythrocyte) 31 pg 25-34 Automated erythrocyte mean corpuscular hemoglobin concentration measurement ( mass/volume) 34 g/dL 32-36 Automated erythrocyte distribution width ratio 13.9 % 10.0-14.5 Automated blood platelet count (count/volume) 174 10*3/uL 130-400 Automated blood platelet mean volume measurement 10.7 [foz_us] 7.4-10.4 Comprehensive metabolic panel - 07/19/17 08:00 Serum or plasma sodium measurement (moles/volume) 140 mmol/L 135-145 Serum or plasma potassium measurement (moles/volume) 4.3 mmol/L 3.6-5.0 Serum or plasma chloride measurement (moles/volume) 111 mmol/L 98-107 Carbon dioxide 19 mmol/L 21-32 Serum or plasma anion gap determination (moles/volume) 10 mmol/L 5-14 Serum or plasma urea nitrogen measurement (mass/volume) 23 mg/dL 7-18 Serum or plasma creatinine measurement (mass/volume) 1.47 mg/dL 0.60-1.30 Serum or plasma urea nitrogen/creatinine mass ratio 16 NRG Serum or plasma creatinine measurement with calculation of estimated glomerular filtration rate 48 NRG Serum or plasma glucose measurement (mass/volume) 159 mg/dL 70-105 Serum or plasma calcium measurement (mass/volume) 9.3 mg/dL 8.5-10.1 Serum or plasma total bilirubin measurement (mass/volume) 0.6 mg/dL 0.1-1.0 Serum or plasma alkaline phosphatase measurement (enzymatic activity/volume) 67 U/L 40-136 Serum or plasma aspartate aminotransferase measurement (enzymatic activity/ volume) 23 U/L 5-34 Serum or plasma alanine aminotransferase measurement (enzymatic activity/volume ) 29 U/L 0-55 Serum or plasma protein measurement (mass/volume) 6.8 g/dL 6.4-8.2 Serum or plasma albumin measurement (mass/volume) 4.1 g/dL 3.2-4.5 PT panel in platelet poor plasma by coagulation assay - 07/19/17 08:00 Prothrombin time (PT) in platelet poor plasma by coagulation assay 14.5 s 12.2-14.7 INR in platelet poor plasma or blood by coagulation assay 1.1 0.8-1.4 Activated partial thromboplastin time (aPTT) in platelet poor plasma bycoagulation assay - 07/19/17 08:00 Activated partial thromboplastin time (aPTT) in platelet poor plasma bycoagulation assay 35 s 24-35 Methicillin resistant Staphylococcus aureus (MRSA) screening culture - 08:00 Methicillin resistant Staphylococcus aureus (MRSA) screening culture NEG NRG Whole blood basic metabolic panel - 12/30/17 09:50 Serum or plasma sodium measurement (moles/volume) 139 mmol/L 135-145 Serum or plasma potassium measurement (moles/volume) 4.7 mmol/L 3.6-5.0 Serum or plasma chloride measurement (moles/volume) 111 mmol/L 98-107 Carbon dioxide 20 mmol/L 21-32 Serum or plasma anion gap determination (moles/volume) 8 mmol/L 5-14 Serum or plasma urea nitrogen measurement (mass/volume) 22 mg/dL 7-18 Serum or plasma creatinine measurement (mass/volume) 1.39 mg/dL 0.60-1.30 Serum or plasma urea nitrogen/creatinine mass ratio 16 NRG Serum or plasma creatinine measurement with calculation of estimated glomerular filtration rate 51 NRG Serum or plasma glucose measurement (mass/volume) 128 mg/dL 70-105 Serum or plasma calcium measurement (mass/volume) 9.7 mg/dL 8.5-10.1 Encounters ACCT No. Visit Date/Time Discharge Status Pt. Type Provider Facility Loc./Unit Complaint [id number] 01/18/2017 15:07:53 01/18/2017 23:59:59 CLS Outpatient Cisco Smith [id number] 01/16/2018 05:41:00 01/16/2018 14:15:00 DIS Outpatient CORNELIUS CHERY MD [facility] PREOP COLONOSCOPY [id number] 12/30/2017 09:37:00 12/30/2017 23:59:59 CLS Outpatient RINKU FULLER DO [facility] SDC CONSTIPATION K59.00 [id number] 07/19/2017 06:48:00 07/19/2017 13:18:00 DIS Outpatient Jennifer YATES MD [facility] CATH CHEST DISCOMFORT [id number] 07/14/2017 06:52:00 07/14/2017 23:59:59 CLS Outpatient Jennifer YATES MD [facility] CARD I25.10 [id number] 06/23/2017 10:03:00 06/23/2017 23:59:59 CLS Outpatient Jennifer YATES MD [facility] CARD I25.10 [id number] 06/03/2017 12:41:00 06/03/2017 23:59:59 CLS Preadmit Jennifer YATES MD [facility] RAD I25.10 [id number] 01/20/2017 13:53:00 01/20/2017 23:59:59 CLS Outpatient KRISTIE SMITH MD [facility] RAD M25.561,M25.562 [id number] 08/31/2016 22:53:00 09/01/2016 01:00:00 DIS Emergency MARU EATON DO [facility] ER BLOOD IN URINE [id number] 06/25/2016 08:32:00 06/26/2016 13:30:00 DIS Inpatient Jennifer YATES MD [facility] ICU CHEST PAIN [id number] 12/24/2014 07:34:00 12/24/2014 23:59:59 CLS Outpatient ALINA RICHARDS RINKU [facility] CARD RUQ PAIN [id number] 12/13/2014 07:11:00 12/13/2014 23:59:59 CLS Outpatient ALINA DO RINKU [facility] RAD ABD PAIN [id number] 05/18/2013 11:32:00 05/19/2013 11:55:00 DIS Inpatient ALINA RICHARDS RINKU [facility] CSD CHEST PAIN [id number] 08/26/2012 20:39:00 08/26/2012 23:15:00 DIS Emergency [id number] 08/25/2012 07:20:00 08/25/2012 10:44:00 DIS Emergency [id number] 01/18/2018 11:00:00 PEN Preadmit CORNELIUS CHERY MD [facility] SCREENING
--- NOTE | 2018-01-18 11:18 | Conscious Sedation/ASA ---
Conscious Sedation Pre-Proced Time Reviewed: 10:30 ASA Class: 2 Airway Mallampati Classification: (tlingit & haida appropriate class) I. II. III, IV Lungs Heart ASA score ASA 1: a normal healthy patient ASA 2: a patient with a mild systemic disease (mid diabetes, controlled hypertension, obesity ASA 3: a patient with a severe systemic disease that limits activity (angina , COPD, prior Myocardial infarction) ASA 4: a patient with an incapacitating disease that is a constant threat to life (CHF, renal failure) ASA 5: a moribund patient not expected to survive 24 hrs. (ruptured aneurysm) ASA 6: a declared brain patient whose organs are being harvested. For emergent operations, add the letter E after the classification Grade 2 Sedation Plan: Analgesia, Amnesia, Plan communicated to team members, Discussed options with patient/fam, Discussed risks with patient/fam Note The patient is an appropriate candidate to undergo the planned procedure, sedation, and anesthesia. The patient immediately re-assessed prior to indication. CORNELIUS CHERY MD Jan 18, 2018 11:18 am
--- NOTE | 2018-01-18 11:19 | Progress Note-Pre Operative ---
Pre-Operative Progress Note H&P Reviewed The H&P was reviewed, patient examined and no changes noted. Date Seen by Provider: Jan 18, 2018 Time Seen by Provider: 10:30 Date H&P Reviewed: Jan 18, 2018 Time H&P Reviewed: 10:30 Pre-Operative Diagnosis: screening colonoscopy/weight loss CORNELIUS CHERY MD Jan 18, 2018 11:19 am
[2018-01-18] MEDS ORDERED: ONDANSETRON 4 MG/2 ML (SDV) Z0FRAN IV PRN (11:30)
[2018-01-18] MEDS ORDERED: ACETAMINOPHEN 325 MG TABLET PO PRN (11:30)
[2018-01-18] MEDS ORDERED: HYDROcodone/APAP 5 MG/325 MG (LORTAB) TAB PO PRN (11:30)
[2018-01-18] MEDS ORDERED: morphine INJ 10 MG/ML 1ML (SYR OR VIAL) IV PRN (11:30)
[2018-01-18] MEDS ORDERED: LIDOCAINE JELLY 2% (XYLOCAINE) 5 ML TUBE ONE (11:56)
[2018-01-18] MEDS ORDERED: fentaNYL INJECTION 100 MCG/2 ML AMP ONE ×2 (11:57→12:51)
[2018-01-18] MEDS ORDERED: MIDAZOLAM 2 MG/2 ML (VERSED) VIAL ONE ×8 (11:57→12:53)
--- NOTE | 2018-01-18 13:27 | Progress Note-Post Operative ---
Post-Operative Progess Note Surgeon (s)/[employer] Transactions Attorney (s) Surgeon CORNELIUS CHERY MD [employer] Trans[employer] Attorney: none Pre-Operative Diagnosis screening colonoscopy/weight loss Post-Operative Diagnosis moderate sigmoid diverticulosis. Procedure & Operative Findings Date of Procedure 01/18/18 Procedure Performed/Findings Colonoscopy. Anesthesia Type CS Estimated Blood Loss Estimated blood loss (mL): minimal Specimens/Packing Specimens Removed none CORNELIUS CHERY MD Jan 18, 2018 1:27 pm
--- NOTE | 2018-01-18 13:35 | Discharge Inst-Surgical ---
D/C Lap Instructions-MIRI Follow Up Appt in 1 week Will schedule EGD and gallbladder u/s and HIDA as outpatient. Activity as tolerated High Fiber Diet 25g or more per day Avoid Alcohol, Caffeine, Spicy [place] and Acid foods. Drink 64 fluid oz or more of fluids per day. Symptoms to Report: Fever over 101 degree F, Nausea/Vomiting If any problems/questions: Contact your physician or go to Emergency Room CORNELIUS CHERY MD Jan 18, 2018 1:34 pm
[2018-01-18 13:40] VITALS: BP 110/68
[2018-01-18 14:10] VITALS: BP 112/68
[2018-01-18 14:30] VITALS: BP 112/68
--- NOTE | 2018-01-18 15:23 | OPERATIVE REPORT ---
DATE OF SERVICE: 01/18/2018 ATTENDING PRIMARY CARE PHYSICIAN: Dr. Sharron Parsons. PREOPERATIVE DIAGNOSES: Anorexia, weight loss, constipation. POSTOPERATIVE DIAGNOSIS: Moderate sigmoid diverticulosis. PROCEDURE: Colonoscopy. SURGEON: Cornelius Rollins MD ANESTHESIA: Conscious sedation. ESTIMATED BLOOD LOSS: Minimal. FINDINGS: No significant hemorrhoids identified. Prostate gland was palpable and appeared normal. There was a poor prep; however, with irrigation, there were no mucosal lesions identified, only sigmoid diverticulosis with no signs of a mucosal inflammatory changes and no neoplasm was identified. DISPOSITION: The patient tolerated the procedure well. INDICATIONS: The patient is a 67-year-old male in need of a screening colonoscopy. He does not report any red blood per rectum nor any dark tarry stools as well as no family history of colon cancer; however, he does state in the past six months, he has had some issues with constipation. During the same timeframe, he has noticed anorexia as well as approximately 50-pound weight loss. He does report a history of gastroesophageal reflux disease and is currently on meloxicam. DESCRIPTION OF PROCEDURE: The patient was brought to the endoscopy suite, laid in left lateral decubitus position. After adequate IV pain and sedating medications and conscious sedation anesthesia, a digital rectal examination was performed. No significant hemorrhoids identified. Normal sphincter tone was felt and there were no palpable masses. The prostate gland was palpable and appeared normal. The endoscope was then intubated into the anus and rectum gently insufflated. The endoscope was then advanced through the valves of Mann in the rectum with no polyps or any neoplasms identified. There was a poor prep identified; however, we did irrigate this and suction as well as possible. The endoscope was then advanced through the sigmoid colon where a moderate sigmoid diverticulosis identified. There were no mucosal inflammatory changes to indicate any active diverticulitis. The endoscope was then advanced to the remainder of the descending, transverse, ascending colon and the cecum. There were no polyps or any neoplasms identified throughout the colon or rectum. The endoscope was slowly withdrawn while taking a second look and suctioning of residual air with no additional findings. The patient tolerated the procedure well. We will recommend a high-fiber diet with at least 25 to 30 grams of fiber per day as well as copious amounts of water to promote soft stools on a daily basis. The etiology of his anorexia and weight loss will need further investigation and we will proceed with an EGD as well as biopsies as appropriate to rule out gastritis or H. pylori; however, we will also proceed with a gallbladder ultrasound and possible HIDA scan as an outpatient. Job ID: [id number] DocumentID: [id number] Dictated Date: 01/18/2018 13:24:17 Technology Engineer Date: 01/18/2018 15:22:34 Dictated By: CORNELIUS ROLLINS MD
== END 2018-01-18 14:30 | disposition home or self-care (01) ==
LOC: ENDO 09:44
PROVIDERS: ATTEND Surgery
DX: Z12.11 Encounter for screening for malignant neoplasm of colon (principal); K57.30 Diverticulosis of large intestine without perforation or abscess without bleeding; K59.00 Constipation, unspecified; R63.0 Anorexia; R63.4 Abnormal weight loss; E11.9 Type 2 diabetes mellitus without complications; I10 Essential (primary) hypertension; M10.9 Gout, unspecified; N40.0 Benign prostatic hyperplasia without lower urinary tract symptoms; K21.9 Gastro-esophageal reflux disease without esophagitis; I25.10 Atherosclerotic heart disease of native coronary artery without angina pectoris; Z95.5 Presence of coronary angioplasty implant and graft; Z79.899 Other long term (current) drug therapy; Z79.84 Long term (current) use of oral hypoglycemic drugs; Z79.82 Long term (current) use of aspirin

== ENCOUNTER → 2018-01-25 | Outpatient (CLI) | payer MEDICARE ==
--- NOTE | 2018-01-25 10:55 | Diagnostic Imaging Report ---
PROCEDURE: US Gallbladder. TECHNIQUE: Multiple real-time grayscale images were obtained over the right upper quadrant in various projections. INDICATION: Abdominal pain. There are no previous ultrasound examinations available for comparison. FINDINGS: The CT abdomen/pelvis exam of 12/30/2017 failed to show any sign of an acute abnormality on this study. There is no evidence for cholelithiasis or acute cholecystitis and the common bile duct is not dilated. The liver is prominent and the echogenic appearance of liver does suggest fatty metamorphosis. There is no focal mass involving the biliary tree is not abnormally distended. The pancreas was not well visualized. Along the inferior pole of the right kidney, there is a 4 x 3.7 x 4 CM cyst. This cyst has a generally benign appearance. The right kidney is otherwise unremarkable. There is no mass or free fluid collection evident. IMPRESSION: 1. There is no acute abnormality of the right upper quadrant. 2. If clinical concern regarding an underlying abnormality of the gallbladder persists and further imaging is desired, then nuclear medicine hepatobiliary scan would be recommended. 3. 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 Dictated by: Dictated on workstation # [id number]
== END ==
LOC: RAD 07:54
PROVIDERS: ATTEND Nurse Practitioner Family
DX: R10.11 Right upper quadrant pain (principal)
CPT/HCPCS: 76705

== ENCOUNTER → 2018-01-27 | Outpatient (CLI) | payer MEDICARE ==
[~2018-01-27] MED LIST changes: +CATHETER FLUSH 10 ML SYR IV PRN
--- NOTE | 2018-01-27 14:05 | Diagnostic Imaging Report ---
HEPATOBILIARY SCAN DATE: January 27, 2018. INDICATION: 67-year-old male, right upper quadrant abdominal pain. COMPARISON: Right upper quadrant ultrasound January 25, 2018. CT abdomen and pelvis December 30, 2017. PROCEDURE: 5.15 mCi of Tc-99m Choletec was administered intravenously, and serial anterior planar images over the liver and upper abdomen were obtained. FINDINGS: There is homogeneous activity throughout the liver with good clearance of background activity. This indicates good hepatocellular function. Biliary tree activity is seen at 5 minutes. The gallbladder is seen at 5 minutes. There is no enterogastric reflux. The biliary tree is patent. There is no evidence of acute cholecystitis. Ensure was administered. Gallbladder ejection fraction was calculated to be 8%. IMPRESSION: 1. No evidence of acute cholecystitis. 2. No evidence of complete common bile duct obstruction. 3. Gallbladder ejection fraction of 8% which is below lower limits of normal and may be seen in the setting of biliary dyskinesia and/or chronic cholecystitis. Dictated by: Dictated on workstation # [id number]
== END ==
LOC: CARD 11:01
PROVIDERS: ATTEND Nurse Practitioner Family
DX: R10.11 Right upper quadrant pain (principal)
CPT/HCPCS: 78227

== ENCOUNTER → 2019-06-01 | Outpatient (CLI) | payer MEDICARE ==
[~2019-06-01] MED LIST changes: -CATHETER FLUSH 10 ML SYR IV PRN; +LOSA100T57 PO; -LOSA100T8 PO; +METF500T19 PO; -METO-370 PO; +METO50TA7 PO; -TAMS0.4C98 PO
== END ==
LOC: CARD 08:26
PROVIDERS: ATTEND Internal Medicine Interventional Cardiology
DX: I25.10 Atherosclerotic heart disease of native coronary artery without angina pectoris (principal); E13.9 Other specified diabetes mellitus without complications; E66.9 Obesity, unspecified; I10 Essential (primary) hypertension; E78.5 Hyperlipidemia, unspecified
CPT/HCPCS: 93306

== ENCOUNTER 2019-07-30 10:47 | Observation (INO) | payer MEDICARE ==
[~2019-07-30] VITALS: Ht 182 cm; Wt 111.0 kg
[2019-07-30] MEDS ORDERED: ASPIRIN 81 MG CHEW (CHILDREN'S ASA) PO ONE (11:00)
[2019-07-30 11:05] LABS: BASOPHILS % (AUTO) 1 % (0-10); EOSINOPHILS # (AUTO) 0.2 10^3/uL (0.0-0.3); EOSINOPHILS % (AUTO) 4 % (0-10); HEMATOCRIT 43 % (40-54); HEMOGLOBIN 14.4 G/DL (13.3-17.7); LYMPHOCYTES # (AUTO) 1.4 X 10^3 (1.0-4.0); LYMPHOCYTES % (AUTO) 24 % (12-44); MEAN CORPUSCULAR HEMOGLOBIN 31 PG (25-34); MEAN CORPUSCULAR HGB CONC 33 G/DL (32-36); MEAN CORPUSCULAR VOLUME 93 FL (80-99); MEAN PLATELET VOLUME 11.1 FL (7.4-10.4); MONOCYTES # (AUTO) 0.4 X 10^3 (0.0-1.0); MONOCYTES % (AUTO) 7 % (0-12); NEUTROPHILS # (AUTO) 3.6 X 10^3 (1.8-7.8); NEUTROPHILS % (AUTO) 64 % (42-75); PLATELET COUNT 164 10^3/uL (130-400); RED CELL DISTRIBUTION WIDTH 13.8 % (10.0-14.5); WHITE BLOOD COUNT 5.6 10^3/uL (4.3-11.0)
[2019-07-30 11:11] LABS: PROTHROMBIN TIME PATIENT 13.9 SEC (12.2-14.7)
[2019-07-30 11:23] LABS: ALBUMIN 4.5 GM/DL (3.2-4.5); BILIRUBIN,TOTAL 0.5 MG/DL (0.1-1.0); CALCIUM 9.2 MG/DL (8.5-10.1); CREATININE SERUM 1.78 MG/DL (0.60-1.30); MAGNESIUM 1.9 MG/DL (1.6-2.4); POTASSIUM 5.4 MMOL/L (3.6-5.0); TOTAL PROTEIN 7.5 GM/DL (6.4-8.2)
--- OUTSIDE RECORDS SUMMARY | 2019-07-30 11:23 | XMS REPORT | Encounter Summary ---
Author Author [facility] Address Unknown Phone Unavailable Care Team Providers Care Slumber Room Attendant Name Role Phone PCP Unavailable Encounter Details Care Team Description Date Type Department Sara Johnson MD [address] [place] [address] [phone] [facility] [address] [place], [place] [id number] Social History Date Tobacco Use Types Packs/Day Years Used Never Assessed Sex Assigned at Date Recorded Not on file Industry Job Start Date Occupation Not on file Not on file Not on file Travel End Travel History Travel Start No recent travel history available. documented as of this encounter Plan of Treatment Not on filedocumented as of this encounter Procedures Comments Procedure Name Priority Date/Time Associated Diag nosis LIPID PANEL Routine 08/15/1998 11:10 AM CDT ASPARTATE Routine 08/15/1998 AMINOTRANSFERASE 11:10 AM CDT ALANINE AMINOTRANSFERASE Routine 08/15/1998 11:10 AM CDT documented in this encounter Results * Alanine Aminotransferase (08/15/1998 11:10 AM CDT) Alanine 88 (H) 20 - 60 IU/L [facility] Aminotransferas e Specimen Blood Performing Organization Address City/State/Zipcode Ph one Number SLRL [address] [place], [place] [address] [place] * Lipid Panel (08/15/1998 11:10 AM CDT) Cholesterol 231 (H) <200 MG/DL [facility] Triglycerides 192 <200 MG/DL [facility] HDL Cholesterol 51 >35 MG/DL [facility] LDL Cholesterol 142 (H) 0 - 130 MG/DL [facility] Cholesterol/HDL 4.5 <4.5 [facility] Ratio Hours 12 [facility] Postprandial Specimen Blood Performing Organization Address [facility] Ph one Number [facility] [address] [place], [place] [address] [place] * Aspartate Aminotransferase (08/15/1998 11:10 AM CDT) Aspartate 59 (H) 20 - 50 IU/L [facility] Aminotransferas e Specimen Blood Performing Organization Address [facility] Ph one Number [facility] [address] [place] [phone] [place] documented in this encounter Visit Diagnoses Not on filedocumented in this encounter
--- OUTSIDE RECORDS SUMMARY | 2019-07-30 11:23 | XMS REPORT | Encounter Summary ---
Author Author [facility] Address Unknown Phone Unavailable Care Team Providers Care Candy Attendant Name Role Phone PCP Unavailable Encounter Details Care Team Description Date Type Department Sara Johnson MD [address] [place] [address] [phone] [facility] [address] [place] [address] Social History Date Tobacco Use Types Packs/Day [...] Date/Time Associated Diag nosis LIPID PANEL Routine 09/19/1998 9:10 AM CDT ASPARTATE Routine 09/19/1998 AMINOTRANSFERASE 9:10 AM CDT ALANINE AMINOTRANSFERASE Routine 09/19/1998 9:10 AM CDT documented in this encounter Results * Lipid Panel (09/19/1998 9:10 AM CDT) Cholesterol 209 (H) <200 MG/DL [facility] Triglycerides 166 <200 MG/DL [facility] HDL Cholesterol 47 >35 MG/DL [facility] LDL Cholesterol 129 0 - 130 MG/DL [facility] Cholesterol/HDL 4.4 <4.5 [facility] Ratio Hours 15 [facility] Postprandial Specimen Blood Performing Organization Address City/State/Zipcode Ph one Number [facility] [address] [place], [place] [address] [place] * Alanine Aminotransferase (09/19/1998 9:10 AM CDT) Alanine 66 (H) 20 - 60 IU/L [facility] Aminotransferas e Specimen Blood Performing Organization Address [facility] Ph one Number [facility] [address] [place] [phone] [place] * Aspartate Aminotransferase (09/19/1998 9:10 AM CDT) Aspartate 43 20 - 50 IU/L [facility] Aminotransferas e Specimen Blood Performing Organization Address [facility] one Number [facility] [address] [place] [phone] [place] documented in this encounter Visit Diagnoses Not on filedocumented in this encounter
--- OUTSIDE RECORDS SUMMARY | 2019-07-30 11:23 | XMS REPORT | Clinical Summary ---
Author Author [facility] Organization [facility] Address Unknown Phone Unavailable Care Team Providers Care Paint Trimmer Pipe Bowls Name Role Phone PCP Unavailable Allergies Not on File Medications Not on file Active Problems Not on file Social History Date Tobacco Use Types Packs/Day Years Used Never Assessed Sex Assigned at Date Recorded Not on file Industry Job Start Date Occupation Not on file Not on file Not on file Travel End Travel History Travel Start No recent travel history available. Last Filed Vital Signs Not on file Plan of Treatment Not on file Results Not on filefrom Last 3 Months
--- OUTSIDE RECORDS SUMMARY | 2019-07-30 11:23 | XMS REPORT | Encounter Summary ---
Author Author [facility] Address Unknown Phone Unavailable Care Team Providers Care Moisture Meter Reader Name Role Phone PCP Unavailable Encounter Details Care Team Description Date Type Department Sara Johnson MD [address] [place] [address] [phone] [facility] [address] [place] [address] Social History Date Tobacco Use [...] Date/Time Associated Diag nosis LIPID PANEL Routine 01/21/1999 10:05 AM CDT ASPARTATE Routine 01/21/1999 AMINOTRANSFERASE 10:05 AM CDT ALANINE AMINOTRANSFERASE Routine 01/21/1999 10:05 AM CDT documented in this encounter Results * Aspartate Aminotransferase (01/21/1999 10:05 AM CDT) Aspartate 65 (H) 20 - 50 IU/L [facility] Aminotransferas e Specimen Blood Performing Organization Address City/State/Zipcode Ph one Number [facility] [address] [place], [place] [address] [place] * Lipid Panel (01/21/1999 10:05 AM CDT) Cholesterol 209 (H) <200 MG/DL [facility] Triglycerides 193 <200 MG/DL [facility] HDL Cholesterol 60 >35 MG/DL [facility] LDL Cholesterol 110 0 - 130 MG/DL [facility] Cholesterol/HDL 3.5 <4.5 [facility] Ratio Hours 12 [facility] Postprandial Specimen Blood Performing Organization Address City/[facility] Ph one Number [facility] [address] [place], [place] [address] [facility] * Alanine Aminotransferase (01/21/1999 10:05 AM CDT) Alanine 75 f (H) 20 - 60 IU/L [facility] Aminotransferas e Specimen Blood Narrative Performed At Report [facility] Comments and Normal Ranges for Com ponent ALT(IU/L) SPECIMEN WAS MODERATELY HEMOLYZED. HE MOLYSIS MAY FALSELY ELEVATE THE FOLLOWING RESULT(S)-ALT AND AST. JANICE LAWRENCE REDRAW. Performing Organization Address [facility] Ph one Number [facility] [address] [place] [phone] [place] documented in this encounter Visit Diagnoses Not on filedocumented in this encounter
--- OUTSIDE RECORDS SUMMARY | 2019-07-30 11:23 | XMS REPORT | Encounter Summary ---
Author Author [facility] Address Unknown Phone Unavailable Care Team Providers Care Deburrer Machine Name Role Phone PCP Unavailable Encounter Details Care Team Description Date Type Department Sara Johnson MD [address] [place] [address] [phone] 03/04/1999 [facility] Encounter [address] [place] [address] Social History Date Tobacco Use Types Packs/Day [...] Procedure Name Priority Date/Time Associated Diag nosis DIFFERENTIAL Routine 03/04/1999 10:45 AM HYDROGENATION STILL OPERATOR LIPID PANEL Routine 03/04/1999 10:45 AM HYDROGENATION STILL OPERATOR HEPATIC FUNCTION PANEL Routine 03/04/1999 10:45 AM HYDROGENATION STILL OPERATOR CBC AND DIFF (MANUAL DIFF Routine 03/04/1999 IF NECESSARY) 10:45 AM HYDROGENATION STILL OPERATOR BASIC METABOLIC PANEL Routine 03/04/1999 10:45 AM HYDROGENATION STILL OPERATOR documented in this encounter Results * Basic Metabolic Panel (03/04/1999 10:45 AM HYDROGENATION STILL OPERATOR) Sodium 142 134 - 144 MEQ/L [facility] Potassium 4.2 3.6 - 5.0 MEQ/L [facility] Chloride 104 98 - 107 MEQ/L [facility] Carbon Dioxide 25 23 - 32 MEQ/L [facility] Anion Gap 13 3 - 15 [facility] Creatinine 1.0 0.5 - 1.5 MG/DL [facility] Blood Urea 17 5 - 20 MG/DL [facility] Nitrogen Glucose 108 65 - 110 MG/DL [facility] Specimen Blood Performing Organization Address [facility] one Number [facility] [address] [place] [phone] [place] * Hepatic Function Panel (03/04/1999 10:45 AM HYDROGENATION STILL OPERATOR) Albumin 4.2 3.6 - 4.6 G/DL [facility] Bilirubin 0.0 0.0 - 0.3 MG/DL [facility] Direct Bilirubin Total 0.3 0.0 - 1.1 MG/DL [facility] Alkaline 77 40 - 125 IU/L [facility] Phosphatase Alanine 75 (H) 20 - 60 IU/L [facility] Aminotransferas e Aspartate 56 (H) 20 - 50 IU/L [facility] Aminotransferas e Specimen Blood Performing Organization Address [facility] one Number [facility] [address] [place] [address] [place] * Lipid Panel (03/04/1999 10:45 AM HYDROGENATION STILL OPERATOR) Cholesterol 191 <200 MG/DL [facility] Triglycerides 187 <200 MG/DL [facility] HDL Cholesterol 51 >35 MG/DL [facility] LDL Cholesterol 103 0 - 130 MG/DL [facility] Cholesterol/HDL 3.7 <4.5 [facility] Ratio Hours 0 [facility] Postprandial Specimen Blood Performing Organization Address [facility] one Number RL [address] [place] [phone] [place] * DIFFERENTIAL (03/04/1999 10:45 AM HYDROGENATION STILL OPERATOR) % Neutrophils 53 45 - 78 % [facility] %Lymphocytes 36 15 - 47 % [facility] %Monocytes 8 0 - 12 % [facility] %Eosinophils 2 0 - 7 % [facility] %Basophils 1 0 - 2 % [facility] # Granulocytes 4.6 1.7 - 6.8 TH/UL [facility] # Lymphocytes 3.1 1.0 - 3.3 TH/UL [facility] # Monocytes 0.7 0.2 - 0.9 TH/UL [facility] # Eosinophils 0.2 0.0 - 0.4 TH/UL [facility] # Basophils 0.1 0.0 - 0.2 TH/UL [facility] Specimen Blood Performing Organization Address [facility] one Number [facility]RL [address] [place], [place] [address] [place] * CBC and Diff (manual diff if necessary) (03/04/1999 10:45 AM HYDROGENATION STILL OPERATOR) WBC 8.6 4.0 - 11.0 TH/UL [facility] RBC 5.23 4.31 - 5.84 MIL/UL [facility] Hemoglobin 16.0 13.0 - 17.0 G/DL [facility] Hematocrit 48 40 - 50 % [facility] MCV 91 80 - 99 FL [facility] MCH 31 27 - 34 PG [facility] MCHC 34 32 - 36 % [facility] RDW 12.3 <14.5 % [facility] Platelet Count 249 140 - 400 TH/UL [facility] Specimen Blood Performing Organization Address City/State/Zipcode Ph one Number [facility] [address] [place], [place] [address] [facility] documented in this encounter Visit Diagnoses Not on filedocumented in this encounter
--- OUTSIDE RECORDS SUMMARY | 2019-07-30 11:23 | XMS REPORT | Encounter Summary ---
Author Author [facility] Address Unknown Phone Unavailable Care Team Providers Care Outbound Sales Professional Name Role Phone PCP Unavailable Encounter Details Care Team Description Date Type Department Sara Johnson MD [address] [place] [address] [phone] [facility] [address] [place] [address] Social History Date Tobacco Use Types Packs/Day [...] Procedure Name Priority Date/Time Associated Diag nosis URINALYSIS (INCLUDES Routine 04/03/1998 MICROSCOPIC REVIEW, IF 12:20 PM SALES ENABLEMENT SPECIALIST INDICATED) THYROID STIMULATING Routine 04/03/1998 HORMONE 12:20 PM SALES ENABLEMENT SPECIALIST LIPID PANEL Routine 04/03/1998 12:20 PM SALES ENABLEMENT SPECIALIST COMPREHENSIVE METABOLIC Routine 04/03/1998 PANEL 12:20 PM SALES ENABLEMENT SPECIALIST ALANINE AMINOTRANSFERASE Routine 04/03/1998 12:20 PM SALES ENABLEMENT SPECIALIST documented in this encounter Results * Comprehensive Metabolic Panel (04/03/1998 12:20 PM SALES ENABLEMENT SPECIALIST) Albumin 4.4 3.6 - 4.6 G/DL [facility] Aspartate 49 20 - 50 IU/L [facility] Aminotransferas e Bilirubin Total 0.9 0.2 - 1.2 MG/DL [facility] Protein Total 7.5 6.5 - 8.2 G/DL [facility] Serum Calcium 9.6 8.8 - 10.5 MG/DL [facility] Creatinine 1.1 0.5 - 1.5 MG/DL [facility] Glucose 105 65 - 110 MG/DL [facility] Alkaline 75 40 - 125 IU/L [facility] Phosphatase Sodium 141 134 - 144 MEQ/L [facility] Potassium 4.5 3.6 - 5.0 MEQ/L [facility] Chloride 103 98 - 107 MEQ/L [facility] Carbon Dioxide 16 5 - 20 MEQ/L [facility] Specimen Blood Performing Organization Address [facility] one Number [facility] [address] [place] [address] [place] * Lipid Panel (04/03/1998 12:20 PM SALES ENABLEMENT SPECIALIST) Cholesterol 270 (H) <200 MG/DL [facility] Triglycerides 202 (H) <200 MG/DL [facility] HDL Cholesterol 46 >35 MG/DL [facility] LDL Cholesterol 184 (H) 0 - 130 MG/DL [facility] Cholesterol/HDL 5.9 (H) <4.5 [facility] Ratio Hours 0 [facility] Postprandial Specimen Blood Performing Organization [facility] one Number [facility]RL [address] [place] [address] [place] * Alanine Aminotransferase (04/03/1998 12:20 PM SALES ENABLEMENT SPECIALIST) Alanine 73 (H) 20 - 60 IU/L [facility] Aminotransferas e Specimen Blood Performing Organization Address [facility] one Number [facility] [address] [place] [address] [place] * Thyroid Stimulating Hormone (04/03/1998 12:20 PM SALES ENABLEMENT SPECIALIST) Thyroid 1.12 0.50 - 5.00 UIU/ML [facility] Stimulating Hormone Specimen Blood Performing Organization Address [facility] one Number [facility] [address] [place] [phone] [place] * Urinalysis (04/03/1998 12:20 PM SALES ENABLEMENT SPECIALIST) Appearance, YELLOW [facility] Urine Specific <=1.005 <1.030 [facility] [place], UA PH Urine 5.5 5.0 - 8.0 [facility] Hemoglobin NEGATIVE NEGATIVE [facility] Urine Ketones Urine NEGATIVE NEGATIVE [facility] Glucose Urine NEGATIVE NEGATIVE [facility] Protein Urine NEGATIVE NEGATIVE [facility] Qual Leukocyte NEGATIVE NEGATIVE [facility] Esterase Urobilinogen NEGATIVE NEGATIVE [facility] Urine Bilirubin Urine NEGATIVE NEGATIVE [facility] Specimen Urine Performing Organization Address City/State/[facility] Ph one Number RL [address] [place], [place] [address] [place] documented in this encounter Visit Diagnoses Not on filedocumented in this encounter
--- OUTSIDE RECORDS SUMMARY | 2019-07-30 11:23 | XMS REPORT ---
Author Author [employer]. Organization [facility] Address [address] [place] [address] Care Team Providers Care Transition Assistant Name Role Phone FULLER, RINKU Unavailable FULLER DO, RINKU Unavailable Unavailable FULLER DO, RINKU Unavailable Unavailable Jennifer BERG MD Unavailable Unavailable Jennifer BERG MD Unavailable Unavailable MARU EATON DO Unavailable Unavailable FULLER, RINKU Unavailable DEJAN ACEVES, BELEN Jeong Unavailable Unavailable UMAAURELIANO RICHARDS MARU Pedro Unavailable Unavailable FULLER DO, RINKU Unavailable Unavailable FULLER DO, RINKU Unavailable Unavailable KRISTIE SMITH MD Unavailable Unavailable CORNELIUS CHERY MD Unavailable Unavailable JUAN DIEGO HERNANDEZ AMUSEMENT OR RECREATION CARD CHECKER Unavailable Unavailable Jennifer BERG MD Unavailable Unavailable Jennifer BERG MD Unavailable Unavailable TRUDY ACEVES, YULISA MAIN Unavailable Unavailable TRUDY ACEEVS, YULISA MAIN Unavailable Unavailable LORETTA ACEVES, MARI Unavailable Unavailable LORETTA ACEVES, MARI Unavailable Unavailable LORETTA ACEVES, MARI Unavailable Unavailable Allergies Normalized Allergy Reported Date of Reaction(s) Care Provider Facility Allergy Type classification allergen Allergy Onset DA (22 Unclassified No Known Drug 11-02-2011 - no information RINKU FULLER , Not Available sources.) Allergies DO (64233) Medications Medication Ingredient Drug Dose Dates Status Sig Sig Care Class(es) (Normalized) (Original) Provid er folic acid folic acid Vitamin B12 Complete take 1 Cyanocobal am (no 0.5 mg / / vitamin B d tablet by in/Fa/Pyrido phone ) vitamin b 12 / mouth once xine (B 12 0.2 mg / vitamin B6 daily Complex-Foli vitamin b6 c Acid 5 mg oral Tablet) 1 tablet (1 Each Tablet source.) 1 Each ORAL Daily metoclopram metoclopram Dopamine-2 10 mg Complete take 1 Metoclo prami (no jessica 10 mg jessica Receptor d tablet by de Hcl 10 Mg p ace) oral tablet Antagonist mouth four Tablet 10 Mg (1 source.) times daily ORAL Four as needed Times Daily for nausea as needed for Nausea/Vomit ing-1ST Line no Pantoprazol no 40 mg 01-17-20 Complete take 1 Pantop razole (no information e Sodium information 18 d tablet by Sodium phone) (1 source.) (Protonix) mouth once (Protonix) 40 Mg daily, then 40 Mg Tablet., take 1 Tablet., 40 Mg Oral tablet by 40 Mg Oral mouth Daily Discontinued Problems Active Problems Problem Normalized Date of Normalized Normalized Provider Fac ility Classification Problem(s) Problem Problem Problem Sta tus Onset/Resoluti Duration on Other Abnormal 06-27-2019 - Episodic Active CORNELIUS CHERY [facility] Via nutritional; weight loss MD Chavez endocrine; and Hospital - metabolic [place] disorders (7 (21265) sources.) Other Anorexia 06-27-2019 - Episodic Active CORNELIUS CHERY [facility] Via nutritional; MD [facility] endocrine; and Hospital - metabolic [place] disorders (7 (71111) sources.) Varicose veins Asymptomatic 06-27-2019 - Episodic Active KRISTIE SMITH [facility] Via of lower varicose veins , MD [facility] extremity (10 of left lower Hospital - sources.) extremity [place] ([address]) Coronary Atheroscleroti no information Active MD TRUDY Not Available atherosclerosi c heart (61506) s and other disease of heart disease [place] (22 sources.) coronary artery without angina pectoris Translations: [ PRESENCE OF CORONARY ANGIOPLASTY IMPLANT, ATHSCL HEART DISEASE OF [place] CORONARY , PRESENCE OF CORONARY ANGIOPLASTY IMPLANT, ATHSCL HEART DISEASE OF [place] CORONARY ] 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 MÁRQUEZ [facility] Via prostate (19 prostatic MD Kathy BERG sources.) hyperplasia Hospital - without lower [place] urinary tract (92088) symptoms Other Body mass 06-27-2019 - Chronic Active MÁRQUEZ [facility] Via nutritional; index (BMI) MD Kathy BERG endocrine; and 40.0-44.9, Hospital - metabolic adult [place] disorders (7 (82226) sources.) Chronic kidney Chronic kidney 06-27-2019 - Chronic Active MUH AMMAD [facility] Via disease (12 disease, MD Kathy BERG sources.) unspecified Hospital - [place] (22545) Other Constipation, 06-27-2019 - Episodic Active RINKU TRENTONN ER , [facility] Via gastrointestin unspecified DO Kathy al disorders Hospital - (11 sources.) [place] (46368) Mood disorders Depressive Chronic Active RINKU FULLER N ot Available (8 sources.) disorder, not DO (64266) elsewhere classified Diverticulosis Diverticulosis 06-27-2019 - Chronic Active FLORIN CHERY [facility] Via and of large MD [facility] diverticulitis intestine Hospital - (7 sources.) without [place] perforation or (01599) abscess without bleeding Residual Edema Episodic Active RINKU FULLER [facility] Via codes; DO [facility] unclassified Hospital - (1 source.) [place] (89429) Other Effusion, 06-27-2019 - Episodic Active KRISTIE SMITH [facility] Via non-traumatic right knee , MD [facility] joint Hospital - disorders (10 [place] sources.) (57086) Other Encounter for 06-27-2019 - Episodic Active CORNELIUS ARZATE DO , [facility] Via screening for screening for MD [facility] suspected malignant Hospital - conditions neoplasm of [place] (not mental colon (73550) disorders or infectious disease) (7 sources.) Esophageal Esophageal 06-27-2019 - Chronic Active RINKU RIVERA R , Not Available disorders (22 reflux DO (66451) sources.) Translations: [ GASTRO-ESOPHAG EAL REFLUX DISEASE WITHOUT] Hypertension Hypertensive 06-27-2019 - Chronic Active MUHAMMA D [facility] Via with chronic kidney MD Kathy BERG complications disease with Hospital - and secondary stage 1 [place] hypertension through stage (17111) (12 sources.) 4 chronic kidney disease, or unspecified chronic kidney disease Unclassified Localized 06-27-2019 - Episodic Active RINKU GARN ER , Not Available (17 sources.) edema DO (95418) Translations: [ EDEMA] Other long term care social worker 06-27-2019 - Episodic Active MÁRQUEZ [facility] Via aftercare (7 (current) use MD Kathy BERG sources.) of Hospital - antithrombotic [place] s/antiplatelet (41978) s Other alf 06-27-2019 - Episodic Active MARU EATON [facility] Via aftercare (21 (current) use , DO Kathy sources.) of aspirin [facility] (16613) Other alf 06-27-2019 - Episodic Active MÁRQUEZ [facility] Via aftercare (4 (current) use MD Kathy BERG sources.) of oral Hospital - hypoglycemic [place] drugs (41310) Other Obesity, 06-25-2019 - Chronic Active MÁRQUEZ [facility] V ia nutritional; unspecified MD Kathy BERG endocrine; and Hospital - metabolic [place] disorders (12 (68080) sources.) Other nervous Other chronic Chronic Active RINKU FULLER , Not Available system pain DO (48273) disorders (8 sources.) Other Other long 06-27-2019 - Episodic Active MARU Casillas [facility] Via aftercare (21 term (current) , DO Kathy sources.) drug therapy [facility] (76660) Malaise and Other malaise 06-27-2019 - Episodic Active MUHAMMA D [facility] Via fatigue (12 MD Kathy BERG sources.) [facility] (49451) Peripheral and Peripheral 06-27-2019 - Chronic Active MUHAMMA D [facility] Via visceral vascular MD Kathy BERG atherosclerosi disease, Hospital - s (6 sources.) unspecified [place] (58925) Coronary Presence of 06-27-2019 - Episodic Active MÁRQUEZ [facility] Via atherosclerosi coronary MD Kathy BERG s and other angioplasty Hospital - heart disease implant and [place] (12 sources.) graft (79709) Other lower Shortness of 06-27-2019 - Episodic Active ÁMRQUEZ [facility] Via respiratory breath MD Kathy BERG disease (12 Hospital - sources.) [place] (75455) Spondylosis; Spondylopathy, 06-27-2019 - Chronic Active MUHAM MAD [facility] Via intervertebral unspecified MD Kathy BERG disc Hospital - disorders; [place] other back (02479) problems (12 sources.) Diabetes Type 2 06-25-2019 - Chronic Active MARU EATON Not Available mellitus diabetes , DO (99093) without mellitus complication without (24 sources.) complications Translations: [ OTHER SPECIFIED DIABETES MELLITUS WITHOU, TYPE 2 DIABETES MELLITUS WITHOUT COMPLIC] Osteoarthritis Unilateral 06-27-2019 - Chronic Active KRISTIE WOODOQUIN [facility] Via (10 sources.) primary , MD [facility] osteoarthritis Hospital - , left knee [place] (60920) Past or Other Problems Problem Normalized Date of Normalized Normalized Provider Fac ility Classification Problem(s) Problem Problem Problem Sta tus Onset/Resoluti Duration on Other alf no information no information MD TRUDY Not Available aftercare (21 (current) use (76600) sources.) of oral hypoglycemic drugs Procedures Procedure Normalized Procedure Procedure Result Performer Facility Date Aortography no information no name (no phone) Not Availab le (95511) 12-30-2017 Computed tomography of no information RINKUDudley FULLER Via [facility] abdomen and pelvis [place] (53027) with contrast CORONAR ARTERIOGR-2 no information no name (no phone) Not Av ailable (38760) CATH 01-18-2018 Diagnostic endoscopic no information CORNELIUS CHERY Via [facility] examination on colon [place] (37433) 06-24-2016 DILATION OF 2 COR ART no information no name (no ph one) [facility] DILATION OF 2 COR ART no information no name (no phone) Not Available (59120) WITH 2 [facility], 06-24-2016 FLUOROSCOPY OF LEFT no information no name (no phon e) [facility] HEART USING [facility] (97535) FLUOROSCOPY OF LEFT no information no name (no phone) Not Av ailable (64328) HEART USING [facility] 06-24-2016 FLUOROSCOPY OF MULT no information no name (no phon e) [facility] COR ART USING [facility] (67383) FLUOROSCOPY OF MULT no information no name (no phone) Not Av ailable (24020) COR ART USING [facility] Left heart cardiac no information no name (no phone) Not Mell ilable (49609) catheterization 06-24-2016 MEASURE OF CARDIAC no information no name (no phone ) [facility] Via [facility] SAMPL PRESSURE, L H [facility] (38150) MEASURE OF CARDIAC no information no name (no phone) Not Mell ilable (53622) SAMPL PRESSURE, L H Immunizations The data below is from unstructured sourcesNo immunization records.No immunization records.No immunization records. Results Test Name Value Interpretation Reference Range Date Time Fa cility (Normalized) (Normalized) (Medline Reference) serum or plasma urea nitrogen/creatin ine mass ratio on 2017-12-30 Urea 16 mg/mg (no code) 6 - 22 mg/mg Via [facility] nitrogen/Creatin [facility] ine mass ratio [place] (36030) serum or plasma urea nitrogen measurement (mass/volume) on 2017-12-30 Urea nitrogen 22 mg/dL (H) 7 - 20 mg/dL Via [facility] (83599) serum or plasma sodium measurement (moles/volume) on 2017-12-30 Sodium molar 139 mmol/L (no code) 135 - 145 mmol/L Via [facility] (92391) serum or plasma potassium measurement (moles/volume) on 2017-12-30 Potassium molar 4.7 mmol/L (no code) 3.7 - 5.2 mmol/L Via [facility] (25687) serum or plasma glucose measurement (mass/volume) on 2017-12-30 Glucose mass 128 mg/dL (H) 60 - 125 mg/dL Via [facility] (12621) serum or plasma creatinine measurement with calculation of estimated glomerular filtration rate on 2017-12-30 GFR/1.73 sq M 51 (no code) 90 - 120 Via [facility] predicted among mL/min/{1.73_m2} mL/min/{1.73_m2} [facility] non-blacks MDRD [place] vol rate/area () (S/P/Bld) serum or plasma creatinine measurement (mass/volume) on 2017-12-30 Creatinine mass 1.39 mg/dL (H) Via [facility] (57000) serum or plasma chloride measurement (moles/volume) on 2017-12-30 Chloride molar 111 mmol/L (H) 95 - 106 mmol/L Via [facility] (65878) serum or plasma calcium measurement (mass/volume) on 2017-12-30 Calcium mass 9.7 mg/dL (no code) 8.5 - 10.2 mg/dL Via [facility] (60887) serum or plasma anion gap determination (moles/volume) on 2017-12-30 Anion gap 3 8 mmol/L (no code) 3 - 11 mmol/L Via [facility] (72657) carbon dioxide on 2017-12-30 CO2 molar conc 20 mmol/L (L) 23 - 29 mmol/L Via [facility] (73513) Vital Signs The data below is from unstructured sources Vital Response Date/Time Temperature (Fahrenheit) 96.2 degree s F (97.6 - 99.5) 06/26/2016 2:23pm Temperature (Calculated Celsius) 35. 73184 degrees C (36.4 - 37.5) 06/26/2016 12:00pm Temperature Source Tympanic 06/26/2016 2:23pm Pulse Rate (adult) 73 bpm (60 - 90) 06/26/2016 2:23pm Respiratory Rate 20 bpm (12 - 24) 06/26/2016 2:23pm O2 Sat by Pulse Oximetry 100 % (88 - 100) 06/26/2016 2:23pm Blood Pressure 148/84 mm Hg 06/26/2016 2:23pm Blood Pressure Mean 105 mm Hg 06/26/2016 12:00pm Pain Numeric Pain Scale 0-No Pain 06/26/2016 12:00pm Height (Feet) 6 feet 12:45pm Height (Inches) 1.00 inches 06/24/2016 12:45pm Height (Calculated Centimeters) 185. 184198 cm 06/24/2016 12:45pm Weight (Pounds) 300 pounds 06/24/2016 12:45pm Weight (Ounces) 0.0 oz 0 06/24/2016 12:45pm Weight (Calculated Grams) 699736.71 gm 06/24/2016 12:45pm Weight (Calculated Kilograms) 136.07 7712 kilograms 06/24/2016 12:45pm Calculated BMI 39.6 06/03 12:45pm Capillary Refill Capillary Refill Less Than 3 Seconds 06/24/2016 7:55pm Vital Response Date/Time Temperature (Fahrenheit) 98.1 degree s F (97.6 - 99.5) 08/31/2016 11:05pm Temperature (Calculated Celsius) 36. 08803 degrees C (36.4 - 37.5) 08/31/2016 11:05pm Temperature Source Temporal 08/31/2016 11:05pm Pulse Rate (adult) 78 bpm (60 - 90) 09/01/2016 1:00am Respiratory Rate 18 bpm (12 - 24) 09/01/2016 1:00am O2 Sat by Pulse Oximetry 97 % (88 - 100) 09/01/2016 1:00am Blood Pressure 137/84 mm Hg 09/01/2016 1:00am Blood Pressure Mean 122 mm Hg 08/31/2016 11:05pm Pain Numeric Pain Scale 4 1:00am Height (Feet) 6 feet 06/2016 11:05pm Height (Inches) 2.00 inches 08/31/2016 11:05pm Height (Calculated Centimeters) 187. 440539 cm 08/31/2016 11:05pm Weight (Pounds) 300 pounds 08/31/2016 11:05pm Weight (Calculated Kilograms) 136.07 7712 kilograms 08/31/2016 11:05pm Capillary Refill Capillary Refill Less Than 3 Seconds 08/31/2016 11:05pm Height 6 ft 2 in 017 11:05pm Weight 300 lb 08/31/2016 11:05pm Body Mass Index 38.5 kg/m^2 08/31/2016 11:05pm Vital Response Date/Time Temperature (Fahrenheit) 97.5 degree s F (97.6 - 99.5) 01/18/2018 2:30pm Temperature (Calculated Celsius) 36. 49580 degrees C (36.4 - 37.5) 01/18/2018 2:30pm Temperature Source Tympanic 01/18/2018 2:30pm Pulse Rate (adult) 63 bpm (60 - 90) 01/18/2018 2:30pm Respiratory Rate 18 bpm (12 - 24) 01/18/2018 2:30pm O2 Sat by Pulse Oximetry 95 % (88 - 100) 01/18/2018 2:30pm Blood Pressure 112/68 mm Hg 01/18/2018 2:30pm Blood Pressure Mean 102 mm Hg (65 - 110) 01/18/2018 10:16am Pain Numeric Pain Scale 0-No Pain 01/18/2018 2:30pm Pain Intensity 0 2017 2:10pm Height (Feet) 6 feet 10:14am Height (Inches) 0.00 inches 01/18/2018 10:14am Height (Calculated Centimeters) 182. 059722 cm 01/18/2018 10:14am Weight (Pounds) 250 pounds 01/18/2018 10:14am Weight (Ounces) 0.0 oz 0 01/18/2018 10:14am Weight (Calculated Grams) 641099.09 gm 01/18/2018 10:14am Weight (Calculated Kilograms) 113.39 8094 kilograms 01/18/2018 10:14am Calculated BMI 33.9 12/31 10:14am Weight Measurement Method Standing Scale 01/18/2018 10:14am Capillary Refill Capillary Refill Less Than 3 Seconds 12/30/2017 12:20pm Vital Response Date/Time Temperature (Fahrenheit) 97.5 degree s F (97.6 - 99.5) 01/18/2018 2:30pm Temperature (Calculated Celsius) 36. 32181 degrees C (36.4 - 37.5) 01/18/2018 2:30pm Temperature Source Tympanic 01/18/2018 2:30pm Pulse Rate (adult) 63 bpm (60 - 90) 01/18/2018 2:30pm Respiratory Rate 18 bpm (12 - 24) 01/18/2018 2:30pm O2 Sat by Pulse Oximetry 95 % (88 - 100) 01/18/2018 2:30pm Blood Pressure 112/68 mm Hg 01/18/2018 2:30pm Blood Pressure Mean 102 mm Hg (65 - 110) 01/18/2018 10:16am Pain Numeric Pain Scale 0-No Pain 01/18/2018 2:30pm Pain Intensity 0 2017 2:10pm Height (Feet) 6 feet 10:14am Height (Inches) 0.00 inches 01/18/2018 10:14am Height (Calculated Centimeters) 182. 406027 cm 01/18/2018 10:14am Weight (Pounds) 250 pounds 01/18/2018 10:14am Weight (Ounces) 0.0 oz 0 01/18/2018 10:14am Weight (Calculated Grams) 810384.09 gm 01/18/2018 10:14am Weight (Calculated Kilograms) 113.39 8094 kilograms 01/18/2018 10:14am Calculated BMI 33.9 12/31 10:14am Weight Measurement Method Standing Scale 01/18/2018 10:14am Capillary Refill Capillary Refill Less Than 3 Seconds 12/30/2017 12:20pm Interventions No Information Plan of Treatment The data below is from unstructured sources Discharge Date 06/26/16 1:30pm Disposition 01 HOME, SELF-CARE Instructions/Education Provided CARD IAC CATH DISCHARGE INSTRUC Prescriptions See Medication Section Referrals DR. BERG (Unspecified) - Reason(s) for Referral: PLEASE CALL TO SCHEDULE FOLLOW UP APPOINTMENT TO SEE DR. BERG IN ONE WEEK ([phone]) Care Plan and Goals See Discharge In structions Section Discharge Date 09/01/16 1:00am Disposition 01 HOME, SELF-CARE Condition at Discharge Stable Instructions/Education Provided Randell nobles Stones in Adults Blood in the Urine (Hematuria), Adult (DC) Prescriptions See Medication Section Referrals RINKU FULLER DO Order Date: Primary Care Physician Address: [address] [place] [address] [phone] Note: RINKU FULLER DO Order Date: Primary Care Physician Address: [address] [place] [address] [phone] Note: ROXI CASTANEDA MD Address: [address] [place] [address] [phone] Discharge Date 01/18/18 2:30pm Instructions/Education Provided COLO NOSCOPY Prescriptions See Medication Section Discharge Date 01/18/18 2:30pm Instructions/Education Provided COLO NOSCOPY Prescriptions See Medication Section Goals No Information Social History The data below is from unstructured sources History Response Recorde d Date/Time Alcohol Use Denies Use 0 08/26/12 9:02pm Recreational Drug Use N 08/26/12 9:02pm Recent Foreign Travel N 08/26/12 9:02pm Recent Infectious Disease Exposure N 08/26/12 9:02pm Hospitalization with Isolation Denies 08/26/12 9:02pm Functional Status The data below is from unstructured sources Query Response Date Jin rded Patient Orientation Person Place Time Situation June 26, 2016 2:27pm Comprehension Ability Understands Co ncepts June 26, 2016 8:00am Query Response Date Jin rded Patient Orientation Person Place Time Situation July 08, 2016 11:41am Comprehension Ability Understands Co ncepts June 26, 2016 8:00am No functional status information available. Mental Status No Information Encounters Encounter Normalized Encounter Encounter Diagnosis Care Provi isaiah Organization Date Type 01-18-2018 Admission to day no information [employer] Work no organization name - surgery (no phone ) 01-18-2018 08-31-2016 Emergency department no information MARU Casillas DO [facility] - patient visit (no phone) [facility] 08-31-2016 (no phone) 06-24-2016 Emergency department no information no name (no xiomara ne) no organization name patient visit (no phone) 06-25-2016 Evaluation and no information YULISA Vasquez [facility] Via Kathy - management of MD (no phone) [facility] 06-26-2016 inpatient (no phone) 05-18-2013 Evaluation and no information no name (no phone) n o organization name - management of (no phone) 05-19-2013 inpatient 01-27-2018 Patient encounter no information no name (no phone) no organization name (no phone) 01-25-2018 Patient encounter no information no name (no phone) no organization name (no phone) 01-18-2018 Patient encounter no information no name (no phone) no organization name - (no phone) 01-18-2018 01-16-2018 Patient encounter no information [employer] Work no organization name - (no phone) 01-16-2018 12-30-2017 Patient encounter no information RINKU FULLER Work no organization name (no phone) 07-19-2017 Patient encounter no information no name (no phone) no organization name - (no phone) 07-19-2017 07-14-2017 Patient encounter no information no name (no phone) no organization name (no phone) 06-23-2017 Patient encounter no information no name (no phone) no organization name (no phone) 06-23-2017 Patient encounter no information no name (no phone) no organization name (no phone) 01-20-2017 Patient encounter no information no name (no phone) no organization name (no phone) 12-24-2014 Patient encounter no information no name (no phone) no organization name (no phone) 12-13-2014 Patient encounter no information no name (no phone) no organization name (no phone) 06-01-2019 Patient encounter no information YULISA BURRELL [facility] Via Kathy procedure (no phone) [facility] (no phone) 04-17-2019 Patient encounter no information no name (no phone) no organization name - procedure (no phone) 04-17-2019 10-17-2018 Patient encounter no information no name (no phone) no organization name - procedure (no phone) 10-18-2018 04-04-2018 Patient encounter no information no name (no phone) no organization name - procedure (no phone) 04-05-2018 01-27-2018 Patient encounter no information JUAN DIEGO L MARY A PRN [facility] Via Kathy procedure (no phone) [facility] (no phone) 01-25-2018 Patient encounter no information JUAN DIEGO L MARY A PRN [facility] Via Kathy procedure (no phone) [facility] (no phone) 01-18-2018 Patient encounter no information CORNELIUS CHERY MD (n o [facility] Via Kathy - procedure phone) [facility] 01-18-2018 (no phone) 01-16-2018 Patient encounter no information CORNELIUS CHERY MD (n o [facility] Via Kathy - procedure phone) [facility] 01-16-2018 (no phone) 12-30-2017 Patient encounter no information RINKU FULLER DO (no [facility] Via Kathy procedure phone) [facility] (no phone) 10-18-2017 Patient encounter no information no name (no phone) no organization name - procedure (no phone) 10-19-2017 07-19-2017 Patient encounter no information YULISA VARGASD [facility] Via Kathy - procedure (no phone) [facility] 07-19-2017 (no phone) 07-14-2017 Patient encounter no information YULISA VARGASD [facility] Via Kathy procedure (no phone) [facility] (no phone) 06-23-2017 Patient encounter no information YULISA VARGASD [facility] Via Kathy procedure (no phone) [facility] (no phone) 06-23-2017 Patient encounter no information MÁRQUEZYONATAN VARGASD [facility] Via Kathy procedure (no phone) [facility] (no phone) 04-19-2017 Patient encounter no information no name (no phone) no organization name - procedure (no phone) 04-20-2017 01-20-2017 Patient encounter no information KRISTIE Vasquez [facility] Via Kathy procedure (no phone) [facility] (no phone) 08-31-2016 Patient encounter no information no name (no phone) no organization name procedure (no phone) 06-25-2016 Patient encounter no information no name (no phone) no organization name - procedure (no phone) 06-26-2016 06-24-2016 Patient encounter no information no name (no phone) no organization name procedure (no phone) 12-24-2014 Patient encounter no information RINKU S FULLER DO (no [facility] Via [facility] procedure phone) [facility] (no phone) 12-13-2014 Patient encounter no information RINKU S FULLER DO (no [facility] Via [facility] procedure phone) [facility] (no phone) 06-27-2019 no information Encounter for other no name (no phon e) no organization name preprocedural (no phone) examination Medical Equipment No Information Payers Normalized Payer Value Medicare no information Medicare [id number] ([id number]) Advance Directives Directive Response Recor ded Date/Time Advance Directives No 12:45pm Organ Donor No 06/24/16 12:45pm Resuscitation Status Full Code 06/24/16 12:45pm Directive Response Recor ded Date/Time Advance Directives No 11:05pm Organ Donor No 08/31/16 11:05pm Resuscitation Status Full Code 08/31/16 11:05pm Directive Response Recor ded Date Advance Directives N 9:02pm Organ Donor N 08/26/12 9 :02pm Directive Response Recor ded Date/Time Advance Directives No 10:44am Organ Donor No 01/18/18 10:44am Resuscitation Status Full Code 01/18/18 10:44am Discharge Instructions Patient Instructions Physician Instructions Follow Up/Plan see Dr Berg in one week CARDIAC CATH DISCHARGE INSTRUCTIONS *Hold Metformin for 48 hours post heart cath. ACTIVITY * Go Home directly and rest. * Limit activity of the leg (or wrist if it was used) for 7 days including aerobics, swimming, jogging, bicycling, etc. * Restrict stair-climbing for 7 days if possible, if not, climb up with your non-cath leg, then bring together on the same step. * Avoid lifting, pushing, pulling or excessive movement of the affected extremity for 7 days. * Customary sexual activity may be resumed after 2 days-use caution not to use a position that strains or causes pain to the affected extremity. * No driving for 24 hours. * NO SMOKING. * Avoid straining for bowel movements for 7 days. * Gentle walking on level ground is allowed. * Returning to work will depend on the type of procedure and the results. Your doctor will discuss this with you. CALL YOUR DOCTOR FOR ANY OF THE FOLLOWING: *If bleeding from the puncture site occurs- Apply gentle pressure to site with clean cloth and call your doctor or EMS. * If a knot or lump forms under the skin, increases in size, or causes pain. * If bruising appears to be worsening or moving further down your leg instead of disappearing. * Temperature above 101 F. CARE OF YOUR GROIN INCISION; * Bruising or purple discoloration of the skin near the puncture site is common. * You may shower only, no bathtub bathing for 5 days. Be careful to avoid slipping as your leg may feel stiff. * If a closure device was used on your femoral artery, please see the attached guide regarding care of the device and your leg. * REMOVE the dressing from your groin the next day after your procedure in the shower. CARE OF YOUR WRIST INCISION; * Bruising or purple discoloration of the skin near the puncture site is common. * You may shower. * DO NOT submerge wrist. * Remove dressing in 24 hours. Patient Instructions Physician Instructions Follow Up/Plan see Dr Berg in one week CARDIAC CATH DISCHARGE INSTRUCTIONS *Hold Metformin for 48 hours post heart cath. ACTIVITY * Go Home directly and rest. * Limit activity of the leg (or wrist if it was used) for 7 days including aerobics, swimming, jogging, bicycling, etc. * Restrict stair-climbing for 7 days if possible, if not, climb up with your non-cath leg, then bring together on the same step. * Avoid lifting, pushing, pulling or excessive movement of the affected extremity for 7 days. * Customary sexual activity may be resumed after 2 days-use caution not to use a position that strains or causes pain to the affected extremity. * No driving for 24 hours. * NO SMOKING. * Avoid straining for bowel movements for 7 days. * Gentle walking on level ground is allowed. * Returning to work will depend on the type of procedure and the results. Your doctor will discuss this with you. CALL YOUR DOCTOR FOR ANY OF THE FOLLOWING: *If bleeding from the puncture site occurs- Apply gentle pressure to site with clean cloth and call your doctor or EMS. * If a knot or lump forms under the skin, increases in size, or causes pain. * If bruising appears to be worsening or moving further down your leg instead of disappearing. * Temperature above 101 F. CARE OF YOUR GROIN INCISION; * Bruising or purple discoloration of the skin near the puncture site is common. * You may shower only, no bathtub bathing for 5 days. Be careful to avoid slipping as your leg may feel stiff. * If a closure device was used on your femoral artery, please see the attached guide regarding care of the device and your leg. * REMOVE the dressing from your groin the next day after your procedure in the shower. CARE OF YOUR WRIST INCISION; * Bruising or purple discoloration of the skin near the puncture site is common. * You may shower. * DO NOT submerge wrist. * Remove dressing in 24 hours. No hospital discharge instruction information available.No hospital discharge instruction information available. Additional Source Comments This clinical document has been generated using [employer] software that has been certified by the Office of the National Coordinator for Health Information Technology (ONC 15.99.04.3023.Diam.31.00.0.625048) and the National Committee for Nail Making Machine Tender (NCQA, as an eMeasure certified technology). FOR RECORDS PERTAINING TO PATIENTS WHO ARE OR HAVE BEEN ENROLLED IN A CHEMICAL D EPENDENCY/SUBSTANCE ABUSE PROGRAM, SOME INFORMATION MAY BE OMITTED. This clinica l summary was aggregated from multiple sources. Caution should be exercised in using it in the provision of clinical care. This summary normalizes information from multiple sources, and as a consequence, information in this document may ma terially change the coding, format and clinical context of patient data. In ernst tion, data may be omitted in some cases. CLINICAL DECISIONS SHOULD BE BASED ON T HE PRIMARY CLINICAL RECORDS. [employer]. provides no warranty or guara ntee of the accuracy or completeness of information in this document.The followi ng information is based on time limited clinical information
--- NOTE | 2019-07-30 12:06 | Diagnostic Imaging Report ---
Indication: Chest pain on exertion. Time of exam: 11:08 AM Correlation is made with prior chest from 06/24/2016. The heart size is normal. The pulmonary vascularity is unremarkable. The lungs are clear. No infiltrate, effusion or pneumothorax is detected. Impression: No acute cardiopulmonary process is detected. Dictated by: Dictated on workstation # [id number]
--- NOTE | 2019-07-30 12:32 | ED Chest Pain ---
General Chief Complaint: Chest Pain Stated Complaint: CHEST PAIN Nursing Triage Note: PT PRESENTS TO ED WITH COMPLAINTS OF CP THAT INCREASES WITH ACTIVITY/WAKLING. PT REPORTS STARTED ON 07/27/19. PT STATES WHEN HE SITS OR LAYS DOWN THE CP RESOLVES. Nursing Sepsis Screen: No Definite Risk Source: patient Exam Limitations: no limitations History of Present Illness Date Seen by Provider: Jul 30, 2019 Time Seen by Provider: 11:55 Initial Comments Here with increasing chest pain that has been coming and going over the last week. States that he gets it with activity and it resolves with rest. He tried it again this morning and had the central chest pain with some radiation to the arms. States that he feels that fluttering in his chest as well as tightness. Denies nausea, vomiting, diaphoresis but does get short of breath with the activity and does feel weak. Shortness of breath and weakness have been long- standing but seemed to be a bit worse right now. Denies fever or chills. Denies cough. He does have upper respiratory sinus stuff that has been long-standing as well. He has been and self-isolation at home with his 98-year-old mother and has had no significant travel or exposure. Timing/Duration: 6-7 days (As she is) Severity/Quality: moderate, pressure, tightness Location: central Radiation: arms Activities at Onset: activity Prior CP/Workup: cardiac cath, echocardiography Modifying Factors: improves with rest ASA po FEATHER MAKER: Yes NTG SL FEATHER MAKER: No Associated Symptoms: No back pain, No fever/chills, No nausea/vomiting; shortness of breath, weakness Allergies and Home Medications Allergies Coded Allergies: No Known Drug Allergies (Unverified , 01/16/18) Home Medications Allopurinol 300 Mg Tablet, 300 MG PO DAILY, (Reported) Aspirin 81 Mg Tablet.dr, 81 MG PO DAILY, (Reported) Clonazepam 2 Mg Tablet, 2 MG PO HS, (Reported) Clopidogrel Bisulfate 75 Mg Tablet, 75 MG PO DAILY, (Reported) Cyanocobalamin/FA/Pyridoxine 1 Each Tablet, 1 EACH PO DAILY, (Reported) Finasteride 5 Mg Tablet, 5 MG PO DAILY, (Reported) Gabapentin 400 Mg Capsule, 400 MG PO QID, (Reported) Glipizide 2.5 Mg Tab, 2.5 MG PO DAILY, (Reported) Losartan Potassium 100 Mg Tablet, 100 MG PO DAILY, (Reported) Lovastatin 40 Mg Tablet, 40 MG PO HS, (Reported) Meloxicam 15 Mg Tablet, 15 MG PO DAILY, (Reported) Metformin HCl 500 Mg Tab.er.24h, 1,000 MG PO BID, (Reported) TAKES 2 (500MG) TABLETS Metoclopramide HCl 10 Mg Tablet, 10 MG PO QID PRN for NAUSEA/VOMITING-1ST LINE, (Reported) Metoprolol Succinate 50 Mg Tab.er.24h, 50 MG PO DAILY, (Reported) Nitroglycerin 0.4 Mg Tab.subl, 0.4 MG SL UD PRN for CHEST PAIN, (Reported) Pantoprazole Sodium 40 Mg Tablet.dr, 40 MG PO DAILY, (Reported) Sitagliptin Phosphate 100 Mg Tablet, 100 MG PO DAILY, (Reported) Tamsulosin HCl 0.4 Mg Cap, 0.4 MG PO HS, (Reported) Tizanidine HCl 4 Mg Capsule, 4 MG PO DAILY, (Reported) Patient Home Medication List Home Medication List Reviewed: Yes Review of Systems Review of Systems Constitutional: see HPI; No chills, No fever EENTM: No Ear Pain; Nose Congestion Respiratory: See HPI; Denies Cough Cardiovascular: See HPI, Edema (left leg) Gastrointestinal: No Symptoms Reported Genitourinary: No Symptoms Reported Musculoskeletal: back pain (chronic), muscle weakness (chronic due to long- standing back problems and surgery.), other (left leg swelling and weakness is chronic due to long-standing back problems.) Skin: no symptoms reported All Other Systems Reviewed Negative Unless Noted: Yes Past Xashlvy-Tfattv-Sipwpk Hx Past Med/Social Hx: Reviewed Nursing Past Med/Soc Hx Patient Social History Alcohol Use: Denies Use Recreational Drug Use: No Smoking Status: Never a Smoker 2nd Hand Smoke Exposure: No Recent Foreign Travel: No Contact w/Someone Who Travel: No Recent Infectious Disease Expo: No Recent Hopitalizations: No Physical Abuse: No Sexual Abuse: No Mistreated: No Fear: No Immunizations Up To Date Tetanus Booster (TDap): Unknown Date of Pneumonia Vaccine: Oct 30, 2014 Date of Influenza Vaccine: Feb 23, 2017 Seasonal Allergies Seasonal Allergies: Yes Past Medical History Surgeries: Yes (lumbar fusion L2-S1 06/07/08, lumbar disk removed 1985) Coronary Stent, Orthopedic Respiratory: Yes Sleep Apnea Currently Using CPAP: No Currently Using BIPAP: No Cardiac: Yes (STENTS) Coronary Artery Disease, High Cholesterol, Hypertension Neurological: Yes (arachnoiditis causing frequent cramping, gastroparesis) Reproductive Disorders: No Sexually Transmitted Disease: No HIV/AIDS: No Prostate Problems, Kidney Stones Gastrointestinal: Yes (gastroparesis) Gastroesophageal Reflux, Chronic Constipation, Ulcer Musculoskeletal: Yes Chronic Back Pain Endocrine: Yes Diabetes, Non-Insulin dep Loss of Vision: Bilateral Hearing Impairment: Denies Cancer: No Psychosocial: Yes Depression Integumentary: No Blood Disorders: No Adverse Reaction/Blood Tranf: No (N/A) Family Medical History Reviewed Nursing Family Hx Family history: Cardiovascular disease Family history: Hypertension 03 MOTHER Family history: Osteoporosis 03 MOTHER Stroke 03 FATHER No Pertinent Family Hx Physical Exam Vital Signs Vital Signs - First Documented 07/30/19 10:51 Temp 36.6 Pulse 84 Resp 16 B/P (MAP) 155/83 (107) Pulse Ox 96 O2 Delivery Room Air Capillary Refill : Less Than 3 Seconds Height, Weight, BMI Height: 6'0.00" Weight: 250lbs. 0.0oz. 113.665646wu; 33.00 BMI Method:Stated General Appearance: No Apparent Distress, WD/WN HEENT: PERRL/EOMI, Pharynx Normal Neck: Non Tender, Supple Respiratory: Lungs Clear, Normal Breath Sounds Cardiovascular: Regular Rate, Rhythm, No Murmur Gastrointestinal: Non Tender, Soft Extremity: Non Tender, No Calf Tenderness (has paresthesias from chronic back pain so does not feel pain in the legs.), Pedal Edema (left leg greater than right) Neurologic/Psychiatric: Alert, Oriented x3 Skin: Normal Color, Warm/Dry Progress/Results/Core Measures Results/Orders Lab Results Laboratory Tests Test 07/30/19 10:54 Range/Units White Blood Count 5.6 4.3-11.0 10^3/uL Red Blood Count 4.63 4.35-5.85 10^6/uL Hemoglobin 14.4 13.3-17.7 G/DL Hematocrit 43 40-54 % Mean Corpuscular Volume 93 80-99 FL Mean Corpuscular Hemoglobin 31 25-34 PG Mean Corpuscular Hemoglobin Concent 33 32-36 G/DL Red Cell Distribution Width 13.8 10.0-14.5 % Platelet Count 164 130-400 10^3/uL Mean Platelet Volume 11.1 H 7.4-10.4 FL Neutrophils (%) (Auto) 64 42-75 % Lymphocytes (%) (Auto) 24 12-44 % Monocytes (%) (Auto) 7 0-12 % Eosinophils (%) (Auto) 4 0-10 % Basophils (%) (Auto) 1 0-10 % Neutrophils # (Auto) 3.6 1.8-7.8 X 10^3 Lymphocytes # (Auto) 1.4 1.0-4.0 X 10^3 Monocytes # (Auto) 0.4 0.0-1.0 X 10^3 Eosinophils # (Auto) 0.2 0.0-0.3 10^3/uL Basophils # (Auto) 0.0 0.0-0.1 10^3/uL Prothrombin Time 13.9 12.2-14.7 SEC INR Comment 1.0 0.8-1.4 Activated Partial Thromboplast Time 41 H 24-35 SEC D-Dimer 1.48 H 0.00-0.49 UG/ML Sodium Level 139 135-145 MMOL/L Potassium Level 5.4 H 3.6-5.0 MMOL/L Chloride Level 107 98-107 MMOL/L Carbon Dioxide Level 20 L 21-32 MMOL/L Anion Gap 12 5-14 MMOL/L Blood Urea Nitrogen 28 H 7-18 MG/DL Creatinine 1.78 H 0.60-1.30 MG/DL Estimat Glomerular Filtration Rate 38 BUN/Creatinine Ratio 16 Glucose Level 219 H 70-105 MG/DL Calcium Level 9.2 8.5-10.1 MG/DL Corrected Calcium 8.8 8.5-10.1 MG/DL Magnesium Level 1.9 1.6-2.4 MG/DL Total Bilirubin 0.5 0.1-1.0 MG/DL Aspartate Amino Transf (AST/SGOT) 12 5-34 U/L Alanine Aminotransferase (ALT/SGPT) 10 0-55 U/L Alkaline Phosphatase 96 40-136 U/L Myoglobin 76.0 10.0-92.0 NG/ML Troponin I < 0.028 <0.028 NG/ML B-Type Natriuretic Peptide 30.7 <100.0 PG/ML Total Protein 7.5 6.4-8.2 GM/DL Albumin 4.5 3.2-4.5 GM/DL My Orders Orders - VENICE,SHIRA D MD Cbc With Automated Diff (07/30/19 10:55) Magnesium (07/30/19 10:55) Chest 1 View, Ap/Pa Only (07/30/19 10:55) Ekg Tracing (07/30/19 10:55) Comprehensive Metabolic Panel (07/30/19 10:55) Myoglobin Serum (07/30/19 10:55) Protime With Inr (07/30/19 10:55) Partial Thromboplastin Time (07/30/19 10:55) O2 (07/30/19 10:55) Monitor-Rhythm Ecg Trace Only (07/30/19 10:55) Lipid Panel (07/31/19 06:00) Ed Iv/Invasive Line Start (07/30/19 10:55) BNP (07/30/19 10:55) Fibrin Degradation Products (07/30/19 10:55) Troponin I (07/30/19 10:55) Aspirin Chewable Tablet (Baby Aspirin Ch (07/30/19 11:00) Us Venous Lower Ext Nora (07/30/19 12:07) Lung Scan Perfusion (07/30/19 13:01) Enoxaparin Injection (Lovenox Injection) (07/30/19 13:15) Medications Given in ED Current Medications Medications Dose Ordered Sig/Kamari Route Start Time Stop Time Status Last Admin Dose Admin Aspirin 324 mg ONCE ONCE PO 07/30/19 11:00 07/30/19 11:01 DC 07/30/19 11:10 324 MG Enoxaparin Sodium 100 mg ONCE ONCE SC 07/30/19 13:15 07/30/19 13:16 DC 07/30/19 13:24 100 MG Vital Signs/I&O 07/30/19 07/30/19 10:51 10:51 Temp 36.6 Pulse 84 Resp 16 B/P (MAP) 155/83 (107) Pulse Ox 96 O2 Delivery Room Air Blood Pressure Mean: 107 Progress Progress Note : Progress Note Seen and evaluated. Chest pain protocol initiated with d-dimer. D-dimer is positive. Patient does have swollen left leg adhesive states is chronic but does not feel the leg well. O2 sat normal with normal heart rate. We will get bilateral lower extremity ultrasound due to swelling and elevated d-dimer. Unable to do CT angiogram due to renal insufficiency. VQ scan would be available but ventilation portion unavailable due to current pandemic. Patient is on Plavix and aspirin. Consideration monitor patient. 1320: I did discuss the case with Dr. Berg and he accepts patient and consult. Patient has risk factors including multiple stents for cardiac disease. Lovenox 1 mg/kg initiated 1. Patient will need further cardiac evaluation. He is getting perfusion lung scan later today to rule out PE. I did discuss the case with Dr. Cardenas who accepts patient primary. Discussed with patient who agrees with plan. Admit, observation status. Initial ECG Impression Date: Jul 30, 2019 Initial ECG Impression Time: 10:46 Initial ECG Rate: 82 Initial ECG Rhythm: Normal Sinus Comment Sinus rhythm with nonspecific intraventricular conduction delay. No evidence of ST elevation DC. Similar to previous of 06/25/16. Interpreted by me. Grossly Diagnostic Imaging Diagonstic Imaging: Xray Plain Films/CT/US/NM/MRI: chest Comments [facility], [place] NAME: [facility] REC#: [id number] PT STATUS: REG ER : 1950 PHYSICIAN: SHIRA MILLARD MD ADMIT DATE: 07/30/19/ER Draft Date of Exam:07/30/19 CHEST 1 VIEW, AP/PA ONLY Indication: Chest pain on exertion. Time of exam: 11:08 AM Correlation is made with prior chest from 06/24/2016. The heart size is normal. The pulmonary vascularity is unremarkable. The lungs are clear. No infiltrate, effusion or pneumothorax is detected. Impression: No acute cardiopulmonary process is detected. Dictated on workstation # [id number] Dict: 07/30/19 1114 Trans: 07/30/19 1115 CV [id number] Interpreted by: GAYLE SMITH MD Electronically signed by: Reviewed: Reviewed by Me Diagonstic Imaging: Ultrasound Plain Films/CT/US/NM/MRI: leg Comments NAME: [facility] REC#: [id number] PT STATUS: REG ER : 1950 PHYSICIAN: SHIRA MILLARD MD ADMIT DATE: 07/30/19/ER Draft Date of Exam:07/30/19 US VENOUS LOWER EXT NORA PROCEDURE: US Venous Lower Ext Nora. TECHNIQUE: Multiple real-time grayscale images were obtained over the lower extremities in various projections, bilaterally. Additional duplex Doppler and color Doppler images were also obtained. INDICATION: Chest pain. There is no evidence of right or left lower extremity DVT. Both lower extremity deep venous systems demonstrate normal compressibility with normal response to augmentation and Valsalva. No fluid collection or mass is detected. IMPRESSION: No evidence of right or left lower extremity DVT. Dictated on workstation # [id number] Dict: 07/30/19 1325 Trans: 07/30/19 1326 CV [id number] Interpreted by: GAYLE SMITH MD Electronically signed by: Departure Communication (Admissions) Time/Spoke to Admitting Phy: 13:15 Time/Spoke to Consulting Phy: 13:10 Impression Primary Impression: Chest pain Qualified Codes: R07.9 - Chest pain, unspecified Disposition: ADMITTED INPATIENT Condition: Stable Admissions Decision to Admit Reason: Admit from ER (General) Decision to Admit/Date: Jul 30, 2019 Time/Decision to Admit Time: 13:10 Departure-Patient Inst. Referrals: RINKU FULLER DO (PCP/Family) Primary Care Physician SHIRA MILLARD MD Jul 30, 2019 12:31
[2019-07-30] MEDS ORDERED: ENOXAPARIN 100 MG/1 ML (LOVENOX) SYR SC ONE (13:15)
--- NOTE | 2019-07-30 13:27 | Diagnostic Imaging Report ---
PROCEDURE: US Venous Lower Ext Benito. TECHNIQUE: Multiple real-time grayscale images were obtained over the lower extremities in various projections, bilaterally. Additional duplex Doppler and color Doppler images were also obtained. INDICATION: Chest pain. There is no evidence of right or left lower extremity DVT. Both lower extremity deep venous systems demonstrate normal compressibility with normal response to augmentation and Valsalva. No fluid collection or mass is detected. IMPRESSION: No evidence of right or left lower extremity DVT. Dictated by: Dictated on workstation # [id number]
[2019-07-30 14:54] VITALS: BP 138/82
[2019-07-30 15:00] VITALS: BP 138/82
[2019-07-30] MEDS ORDERED: ONDANSETRON 4 MG/2 ML (SDV) Z0FRAN IV PRN ×2 (15:15→16:30)
[2019-07-30] MEDS ORDERED: NITROGLYCERIN 0.4 MG SL TABS BTL 25'S SL PRN (15:15)
[2019-07-30] MEDS ORDERED: CATHETER FLUSH 10 ML SYR IV PRN (15:15)
--- OUTSIDE RECORDS SUMMARY | 2019-07-30 15:20 | XMS REPORT | Clinical Summary ---
Author Author [facility] Organization [facility] Address Unknown Phone Unavailable Care Team Providers Care Flight Surgeon Name Role Phone PCP Unavailable Allergies Not [...]
--- OUTSIDE RECORDS SUMMARY | 2019-07-30 15:21 | XMS REPORT | Encounter Summary ---
Author Author [facility] Address Unknown Phone Unavailable Care Team Providers Care Sub Prior Name Role Phone PCP Unavailable Encounter Details Care Team Description Date Type Department Sara Johnson MD [address] [place] [address] [phone] [facility] [id number] [place] [address] Social History Date Tobacco Use Types Packs/Day [...] Routine 04/03/1998 MICROSCOPIC REVIEW, IF 12:20 PM SOLUTION CONSULTANT INDICATED) THYROID STIMULATING Routine 04/03/1998 HORMONE 12:20 PM SOLUTION CONSULTANT LIPID PANEL Routine 04/03/1998 12:20 PM SOLUTION CONSULTANT COMPREHENSIVE METABOLIC Routine 04/03/1998 PANEL 12:20 PM SOLUTION CONSULTANT ALANINE AMINOTRANSFERASE Routine 04/03/1998 12:20 PM SOLUTION CONSULTANT documented in this encounter Results * Comprehensive Metabolic Panel (04/03/1998 12:20 PM SOLUTION CONSULTANT) Albumin 4.4 3.6 - 4.6 G/DL SUNQUEST [...] MEQ/L SUNQUEST Specimen Blood Performing Organization Address [facility] one Number [facility] [id number] [place] [phone] SUNQUEST * Lipid Panel (04/03/1998 12:20 PM SOLUTION CONSULTANT) Cholesterol 270 (H) <200 MG/DL SUNQUEST Triglycerides 202 (H) <200 MG/DL SUNQUEST HDL Cholesterol 46 >35 MG/DL SUNQUEST LDL Cholesterol 184 (H) 0 - 130 MG/DL SUNQUEST Cholesterol/HDL 5.9 (H) <4.5 SUNQUEST Ratio Hours 0 SUNQUEST Postprandial Specimen Blood Performing Organization [facility] one Number [facility] [address] [place] [phone] SUNQUEST * Alanine Aminotransferase (04/03/1998 12:20 PM SOLUTION CONSULTANT) Alanine 73 (H) 20 - 60 IU/L SUNQUEST Aminotransferas e Specimen Blood Performing Organization Address [facility] one Number [facility] [address] [place] [phone] SUNQUEST * Thyroid Stimulating Hormone (04/03/1998 12:20 PM SOLUTION CONSULTANT) Thyroid 1.12 0.50 - 5.00 UIU/ML SUNQUEST Stimulating Hormone Specimen Blood Performing Organization Address [facility] one Number [facility] [address] [place] [phone] SUNQUEST * Urinalysis (04/03/1998 12:20 PM SOLUTION CONSULTANT) Appearance, YELLOW SUNQUEST Urine Specific <=1.005 <1.030 SUNQUEST Frostproof, UA PH Urine 5.5 5.0 - 8.0 SUNQUEST Hemoglobin NEGATIVE NEGATIVE [place] Urine Ketones Urine NEGATIVE NEGATIVE [place] Glucose Urine NEGATIVE NEGATIVE [place] Protein Urine NEGATIVE NEGATIVE [place]QUEST Qual Leukocyte NEGATIVE NEGATIVE [place] Esterase Urobilinogen NEGATIVE NEGATIVE SUNQUEST Urine Bilirubin Urine NEGATIVE NEGATIVE SUNQUEST Specimen Urine Performing Organization Address [facility] one Number [address] [place], [place] [address] SUNQUEST documented in this encounter Visit Diagnoses Not on filedocumented in this encounter
--- OUTSIDE RECORDS SUMMARY | 2019-07-30 15:21 | XMS REPORT | Encounter Summary ---
Author Author [facility] Address Unknown Phone Unavailable Care Team Providers Care Regeneration Operator Name Role Phone PCP Unavailable Encounter Details Care Team Description Date Type Department Sara Johnson MD [address] [place] [address] [phone] [facility] [address] [place] [address] Social History Date Tobacco Use [...] Address City/State/Zipcode Ph one Number [facility] [address] [place], [place] [address] SUNQUEST * Alanine Aminotransferase (09/19/1998 9:10 AM CDT) Alanine 66 (H) 20 - 60 IU/L SUNQUEST Aminotransferas e Specimen Blood Performing Organization Address [facility] Ph one Number [facility] [address] [place] [phone] SUNQUEST * Aspartate Aminotransferase (09/19/1998 9:10 AM CDT) Aspartate 43 20 - 50 IU/L SUNQUEST Aminotransferas e Specimen Blood Performing Organization Address [facility] one Number [facility] [address] [place] [phone] SUNQUEST documented in this encounter Visit Diagnoses Not on filedocumented in this encounter
--- OUTSIDE RECORDS SUMMARY | 2019-07-30 15:21 | XMS REPORT ---
Author Author [employer]. 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 Name Role Phone FULLER, RINKU Unavailable FULLER DO, RINKU Unavailable Unavailable FULLER DO, RINKU Unavailable Unavailable Jennifer BERG MD Unavailable Unavailable Jennifer BERG MD Unavailable Unavailable MARU EATON DO Unavailable Unavailable FULLER, RINKU Unavailable DEJAN CAEVES, BELEN Jeong Unavailable Unavailable UMAAURELIANO RICHARDS MARU Pedro Unavailable Unavailable FULLER DO, RINKU Unavailable Unavailable FULLER DO, RINKU Unavailable Unavailable KRISTIE SMITH MD Unavailable Unavailable CORNELIUS CHERY MD Unavailable Unavailable JUAN DIEGO HERNANDEZ STRAWHAT SIZER Unavailable Unavailable Jennifer BERG MD Unavailable Unavailable Jennifer BERG MD Unavailable Unavailable TRUDY ACEVES, YULISA MAIN Unavailable Unavailable TRUDY ACEVES, YULISA MAIN Unavailable Unavailable LORETTA ACEVES, MARI Unavailable Unavailable LORETTA ACEVES, MARI Unavailable Unavailable LORETTA ACEVES, MARI Unavailable Unavailable Allergies Normalized Allergy Reported Date of Reaction(s) Care Provider Facility Allergy Type classification allergen Allergy Onset DA (22 Unclassified No Known Drug 11-02-2011 - no information RINKU FULLER , Not Available sources.) Allergies DO (20316) Medications Medication Ingredient Drug Dose Dates Status [...] MD [facility] endocrine; and Hospital - metabolic [place] disorders (7 (08963) sources.) Other Anorexia 06-27-2019 - Episodic Active CORNELIUS CHERY [facility] Via nutritional; MD [facility] endocrine; and Hospital - metabolic [place] disorders (7 (33030) sources.) Varicose veins Asymptomatic 06-27-2019 - Episodic Active KRISTIE SMITH [facility] Via of lower varicose veins , MD [facility] extremity (10 of left lower Hospital - sources.) extremity [place] (89971) Coronary Atheroscleroti no information Active MD TRUDY Not Available atherosclerosi c heart (48748) s and other disease of heart disease [place] (22 sources.) coronary artery without angina pectoris Translations: [ PRESENCE OF CORONARY ANGIOPLASTY IMPLANT, ATHSCL HEART DISEASE OF [place] CORONARY , PRESENCE OF CORONARY ANGIOPLASTY IMPLANT, ATHSCL HEART DISEASE OF [place] CORONARY ] 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 MÁRQUEZ [facility] Via prostate (19 prostatic MD Kathy BERG sources.) hyperplasia Hospital - without lower [place] urinary tract (29158) symptoms Other Body mass 06-27-2019 - Chronic Active MÁRQUEZ [facility] Via nutritional; index (BMI) MD Kathy BERG endocrine; and 40.0-44.9, Hospital - metabolic adult [place] disorders (7 (81882) sources.) Chronic kidney Chronic kidney 06-27-2019 - Chronic Active MUH AMMAD [facility] Via disease (12 disease, MD Kathy BERG sources.) unspecified Hospital - [place] (39762) Other Constipation, 06-27-2019 - Episodic Active RINKU TRENTONN ER , [facility] Via gastrointestin unspecified DO Kathy al disorders Hospital - (11 sources.) [place] (12623) Mood disorders Depressive Chronic Active RINKU FULLER N ot Available (8 sources.) disorder, not DO (38879) elsewhere classified Diverticulosis Diverticulosis 06-27-2019 - Chronic Active FLORIN CHERY [facility] Via and of large MD [facility] diverticulitis intestine Hospital - (7 sources.) without [place] perforation or (38338) abscess without bleeding Residual Edema Episodic Active RINKU FULLER [facility] Via codes; DO [facility] unclassified Hospital - (1 source.) [place] (65682) Other Effusion, 06-27-2019 - Episodic Active KRISTIE SMITH [facility] Via non-traumatic right knee , MD [facility] joint Hospital - disorders (10 [place] sources.) (05579) Other Encounter for 06-27-2019 - Episodic Active CORNELIUS ARZATE DO , [facility] Via screening for screening for MD [facility] suspected malignant Hospital - conditions neoplasm of [place] (not mental colon (48330) disorders or infectious disease) (7 sources.) Esophageal Esophageal 06-27-2019 - Chronic Active RINKU RIVERA R , Not Available disorders (22 reflux DO (18443) sources.) Translations: [ GASTRO-ESOPHAG EAL REFLUX DISEASE WITHOUT] Hypertension Hypertensive 06-27-2019 - Chronic Active MUHAMMA D [facility] Via with chronic kidney MD Kathy BERG complications disease with Hospital - and secondary stage 1 [place] hypertension through stage (10415) (12 sources.) 4 chronic kidney disease, or unspecified chronic kidney disease Unclassified Localized 06-27-2019 - Episodic Active RINKU GARN ER , Not Available (17 sources.) edema DO (50229) Translations: [ EDEMA] Other intermediate accountant 06-27-2019 - Episodic Active [facility]QUEZ [facility] Via aftercare (7 (current) use MD Kathy BERG sources.) of Hospital - antithrombotic [place] s/antiplatelet (47385) s Other FPC 06-27-2019 - Episodic Active MARU EATON [facility] Via aftercare (21 (current) use , DO Kathy sources.) of aspirin [facility] (44390) Other FPC 06-27-2019 - Episodic Active [facility]RQUEZ [facility] Via aftercare (4 (current) use MD Kathy BERG sources.) of oral Hospital - hypoglycemic [place] drugs (35865) Other Obesity, 06-25-2019 - Chronic Active M[facility]RQUEZ [facility] V ia nutritional; unspecified MD Kathy BERG endocrine; and Hospital - metabolic [place] disorders (12 (04191) sources.) Other nervous Other chronic Chronic Active RINKU FULLER , Not Available system pain DO (05411) disorders (8 sources.) Other Other long 06-27-2019 - Episodic Active MARU Casillas [facility] Via aftercare (21 term (current) , DO Kathy sources.) drug therapy [facility] (95163) Malaise and Other malaise 06-27-2019 - Episodic Active MUHAMMA D [facility] Via fatigue (12 MD Kathy BERG sources.) [facility] (70958) Peripheral and Peripheral 06-27-2019 - Chronic Active MUHAMMA D [facility] Via visceral vascular MD Kathy BERG atherosclerosi disease, Hospital - s (6 sources.) unspecified [place] (78249) Coronary Presence of 06-27-2019 - Episodic Active MÁRQUEZ [facility] Via atherosclerosi coronary MD Kathy BERG s and other angioplasty Hospital - heart disease implant and [place] (12 sources.) graft (97880) Other lower Shortness of 06-27-2019 - Episodic Active M[facility]RQUEZ [facility] Via respiratory breath MD Kathy BERG disease (12 Hospital - sources.) [place] (68275) Spondylosis; Spondylopathy, 06-27-2019 - Chronic Active MUHAM MAD [facility] Via intervertebral unspecified MD Kathy BERG disc Hospital - disorders; [place] other back (78708) problems (12 sources.) Diabetes Type 2 06-25-2019 - Chronic Active MARU EATON Not Available mellitus diabetes , DO (68769) without mellitus complication without (24 sources.) complications Translations: [ OTHER SPECIFIED DIABETES MELLITUS WITHOU, TYPE 2 DIABETES MELLITUS WITHOUT COMPLIC] Osteoarthritis Unilateral 06-27-2019 - Chronic Active KRISTIE WOODOQUIN [facility] Via (10 sources.) primary , MD [facility] osteoarthritis Hospital - , left knee [place] (22830) Past or Other Problems Problem Normalized Date of Normalized Normalized Provider Fac ility Classification Problem(s) Problem Problem Problem Sta tus Onset/Resoluti Duration on Other FPC no information no information MD TRUDY Not Available aftercare (21 (current) use (39685) sources.) of oral hypoglycemic drugs Procedures Procedure Normalized Procedure Procedure Result Performer Facility Date Aortography no information no name (no phone) Not Availab le (57376) 12-30-2017 Computed tomography of no information RINKUDudley FULLER Via [facility] abdomen and pelvis [place] (46232) with contrast CORONAR ARTERIOGR-2 no information no name (no phone) Not Av ailable (72844) CATH 01-18-2018 Diagnostic endoscopic no information CORNELIUS CHERY Via [facility] examination on colon [place] (06937) 06-24-2016 DILATION OF 2 COR ART no information no name (no ph one) [facility] DILATION OF 2 COR ART no information no name (no phone) Not Available (07837) WITH 2 [facility], 06-24-2016 FLUOROSCOPY OF LEFT no information no name (no phon e) [facility] HEART USING [facility] (53513) FLUOROSCOPY OF LEFT no information no name (no phone) Not Av ailable (63260) HEART USING [facility] 06-24-2016 FLUOROSCOPY OF MULT no information no name (no phon e) [facility] COR ART USING [facility] (29254) FLUOROSCOPY OF MULT no information no name (no phone) Not Av ailable (75564) COR ART USING [facility] Left heart cardiac no information no name (no phone) Not Mell ilable (63615) catheterization 06-24-2016 MEASURE OF CARDIAC no information no name (no phone ) [facility] SAMPL PRESSURE, L H [facility] (16120) MEASURE OF CARDIAC no information no name (no phone) Not Mell ilable (42461) SAMPL PRESSURE, L H Immunizations The data below is from unstructured sourcesNo immunization records.No immunization records.No immunization records. Results Test Name Value Interpretation Reference Range Date Time Fa cility (Normalized) (Normalized) (Medline Reference) serum or plasma urea nitrogen/creatin ine mass ratio on 2017-12-30 Urea 16 mg/mg (no code) 6 - 22 mg/mg [facility] nitrogen/Creatin [facility] ine mass ratio [place] (63739) serum or plasma urea nitrogen measurement (mass/volume) on 2017-12-30 Urea nitrogen 22 mg/dL (H) 7 - 20 mg/dL Via [facility] (35083) serum or plasma sodium measurement (moles/volume) on 2017-12-30 Sodium molar 139 mmol/L (no code) 135 - 145 mmol/L Via [facility] (85185) serum or plasma potassium measurement (moles/volume) on 2017-12-30 Potassium molar 4.7 mmol/L (no code) 3.7 - 5.2 mmol/L Via [facility] (38054) serum or plasma glucose measurement (mass/volume) on 2017-12-30 Glucose mass 128 mg/dL (H) 60 - 125 mg/dL Via [facility] (32947) serum or plasma creatinine measurement with calculation of estimated glomerular filtration rate on 2017-12-30 GFR/1.73 sq M 51 (no code) 90 - 120 Via [facility] predicted among mL/min/{1.73_m2} mL/min/{1.73_m2} [facility] non-blacks MDRD [place] vol rate/area () (S/P/Bld) serum or plasma creatinine measurement (mass/volume) on 2017-12-30 Creatinine mass 1.39 mg/dL (H) Via [facility] (88729) serum or plasma chloride measurement (moles/volume) on 2017-12-30 Chloride molar 111 mmol/L (H) 95 - 106 mmol/L Via [facility] (91924) serum or plasma calcium measurement (mass/volume) on 2017-12-30 Calcium mass 9.7 mg/dL (no code) 8.5 - 10.2 mg/dL Via [facility] (43507) serum or plasma anion gap determination (moles/volume) on 2017-12-30 Anion gap 3 8 mmol/L (no code) 3 - 11 mmol/L Via [facility] (58141) carbon dioxide on 2017-12-30 CO2 molar conc 20 mmol/L (L) 23 - 29 mmol/L Via [facility] (14547) Vital Signs The data below is from unstructured sources Vital Response Date/Time Temperature (Fahrenheit) 96.2 degree s F (97.6 - 99.5) 06/26/2016 2:23pm Temperature (Calculated Celsius) 35. 26601 degrees C (36.4 - 37.5) 06/26/2016 12:00pm [...] inches 06/24/2016 12:45pm Height (Calculated Centimeters) 185. 693843 cm 06/24/2016 12:45pm Weight (Pounds) 300 pounds 06/24/2016 12:45pm Weight (Ounces) 0.0 oz 0 06/24/2016 12:45pm Weight (Calculated Grams) 277577.71 gm 06/24/2016 12:45pm Weight (Calculated Kilograms) 136.07 7712 kilograms 06/24/2016 12:45pm Calculated BMI 39.6 06/03 12:45pm Capillary Refill Capillary Refill Less Than 3 Seconds 06/24/2016 7:55pm Vital Response Date/Time Temperature (Fahrenheit) 98.1 degree s F (97.6 - 99.5) 08/31/2016 11:05pm Temperature (Calculated Celsius) 36. 95518 degrees C (36.4 - 37.5) 08/31/2016 11:05pm [...] inches 08/31/2016 11:05pm Height (Calculated Centimeters) 187. 405527 cm 08/31/2016 11:05pm Weight (Pounds) 300 pounds [...] 99.5) 01/18/2018 2:30pm Temperature (Calculated Celsius) 36. 12883 degrees C (36.4 - 37.5) 01/18/2018 2:30pm [...] inches 01/18/2018 10:14am Height (Calculated Centimeters) 182. 072396 cm 01/18/2018 10:14am Weight (Pounds) 250 pounds 01/18/2018 10:14am Weight (Ounces) 0.0 oz 0 01/18/2018 10:14am Weight (Calculated Grams) 620365.09 gm 01/18/2018 10:14am Weight (Calculated Kilograms) 113.39 8094 kilograms 01/18/2018 10:14am Calculated BMI 33.9 12/31 10:14am Weight Measurement Method Standing Scale 01/18/2018 10:14am Capillary Refill Capillary Refill Less Than 3 Seconds 12/30/2017 12:20pm Vital Response Date/Time Temperature (Fahrenheit) 97.5 degree s F (97.6 - 99.5) 01/18/2018 2:30pm Temperature (Calculated Celsius) 36. 83462 degrees C (36.4 - 37.5) 01/18/2018 2:30pm [...] inches 01/18/2018 10:14am Height (Calculated Centimeters) 182. 997843 cm 01/18/2018 10:14am Weight (Pounds) 250 pounds 01/18/2018 10:14am Weight (Ounces) 0.0 oz 0 01/18/2018 10:14am Weight (Calculated Grams) 588323.09 gm 01/18/2018 10:14am Weight (Calculated Kilograms) 113.39 [...] TO SEE DR. BERG IN ONE WEEK ([phone]) Care Plan and Goals See Discharge In structions Section Discharge Date 09/01/16 1:00am Disposition 01 HOME, SELF-CARE Condition at Discharge Stable Instructions/Education Provided Randell nobles Stones in Adults Blood in the Urine (Hematuria), Adult (DC) Prescriptions See Medication Section Referrals RINKU FULLER DO Order Date: Primary Care Physician Address: [address] [place] [address] [phone] Note: RINKU FULLER DO Order Date: Primary Care Physician Address: [address] [place] [address] [phone] Note: ROXI CASTANEDA MD Address: [address] [place] [address] [phone] Discharge Date 01/18/18 2:30pm Instructions/Education Provided COLO [...] Type 01-18-2018 Admission to day no information [email or web address] Work no organization name - surgery (no phone ) 01-18-2018 08-31-2016 Emergency department no information MARU Casillas DO [facility] - patient visit (no phone) [facility] 08-31-2016 (no phone) 06-24-2016 Emergency department no information no name (no xiomara ne) no organization name patient visit (no phone) 06-25-2016 Evaluation and no information YULISA Vasquez [facility] - management of MD (no phone) [facility] 06-26-2016 inpatient (no phone) 05-18-2013 [...] phone) 01-18-2018 01-16-2018 Patient encounter no information [employer] Work no organization name - (no phone) [...] BURRELL VC [facility] Kathy procedure (no phone) [facility] (no phone) 04-17-2019 Patient encounter no information [...] PRN [facility] Via Kathy procedure (no phone) [facility] (no phone) 01-25-2018 Patient encounter no information JUAN DIEGO L MARY A PRN [facility] Via Kathy procedure (no phone) [facility] (no phone) 01-18-2018 Patient encounter no information CORNELIUS CHERY MD (n o [facility] Via Kathy - procedure phone) [facility] 01-18-2018 (no phone) 01-16-2018 Patient encounter no information CORNELIUS CHERY MD (n o [facility] - procedure phone) [facility] 01-16-2018 (no phone) 12-30-2017 Patient encounter no information RINKU FULLER DO (no [facility] Via Kathy procedure phone) [facility] (no phone) 10-18-2017 Patient encounter no information no name (no phone) no organization name - procedure (no phone) 10-19-2017 07-19-2017 Patient encounter no information YULISA VARGASD [facility] Via [facility] - procedure (no phone) [facility] 07-19-2017 (no phone) 07-14-2017 Patient encounter no information YULISA VARGASD [facility] Via [facility] procedure (no phone) [facility] (no phone) 06-23-2017 Patient encounter no information YULISA VARGASD [facility] Via Kathy procedure (no phone) [facility] (no phone) 06-23-2017 Patient encounter no information MÁRQUEZYONATAN VARGASD [facility] Via Kathy procedure (no phone) [facility] (no phone) 04-19-2017 Patient encounter no information no name (no phone) no organization name - procedure (no phone) 04-20-2017 01-20-2017 Patient encounter no information KRISTIE Vasquez [facility] Via Kathy procedure (no phone) [facility] (no phone) 08-31-2016 Patient encounter no information [...] DO (no [facility] Via Kathy procedure phone) [facility] (no phone) 12-13-2014 Patient encounter no information RINKU S FULLER DO (no [facility] Via Kathy procedure phone) [facility] (no phone) 06-27-2019 no information Encounter for other no name (no phon e) no organization name preprocedural (no phone) examination Medical Equipment No Information Payers Normalized Payer Value Medicare no information Medicare [id number] ([id number]) Advance Directives Directive Response Recor ded Date/Time [...] This clinical document has been generated using [employer] software that has been certified by the Office of the National Coordinator for Health Information Technology (ONC 15.99.04.3023.Diam.31.00.0.953888) and the National Committee for Writer (NCQA, as an eMeasure certified technology). FOR [...] BASED ON T HE PRIMARY CLINICAL RECORDS. [employer]. provides no warranty or guara ntee of the accuracy or completeness of information in this document.The followi ng information is based on time limited clinical information
--- OUTSIDE RECORDS SUMMARY | 2019-07-30 15:21 | XMS REPORT | Encounter Summary ---
Author Author [facility] Address Unknown Phone Unavailable Care Team Providers Care Brim Setter Name Role Phone PCP Unavailable Encounter Details Care Team Description Date Type Department Sara Johnson MD [address] [place] [address] [phone] [facility] [address] [place] [address] Social History Date Tobacco Use [...] Address City/State/Zipcode Ph one Number [facility] [address] [place], [place] [address] [place] * Lipid Panel (01/21/1999 10:05 AM CDT) Cholesterol 209 (H) <200 MG/DL [place] Triglycerides 193 <200 MG/DL [place] HDL Cholesterol 60 >35 MG/DL [place] LDL Cholesterol 110 0 - 130 MG/DL [place] Cholesterol/HDL 3.5 <4.5 [place] Ratio Hours 12 [place] Postprandial Specimen Blood Performing Organization Address City[facility] Ph one Number [facility] [address] [place], [place] [address] [place] * Alanine Aminotransferase (01/21/1999 10:05 AM CDT) Alanine 75 f (H) 20 - 60 IU/L [place] Aminotransferas e Specimen Blood Narrative Performed At Report [place] Comments and Normal Ranges for Com ponent ALT(IU/L) SPECIMEN WAS MODERATELY HEMOLYZED. HE MOLYSIS MAY FALSELY ELEVATE THE FOLLOWING RESULT(S)-ALT AND AST. JANICE LAWRENCE REDRAW. Performing Organization Address [facility] Ph one Number [facility] [address] [place] [address] [place] documented in this encounter Visit Diagnoses Not on filedocumented in this encounter
--- OUTSIDE RECORDS SUMMARY | 2019-07-30 15:21 | XMS REPORT | Encounter Summary ---
Author Author [facility] Address Unknown Phone Unavailable Care Team Providers Care Psychiatric Clinical Nurse Specialist Name Role Phone PCP Unavailable Encounter Details Care Team Description Date Type Department Sara Johnson MD [address] [place] [address] [phone] [facility] [address] [place], [place] [id number] Social History Date Tobacco Use Types Packs/Day [...] Address City/State/Zipcode Ph one Number [facility] [address] [place], [place] [address] [place] * Lipid Panel (08/15/1998 11:10 AM CDT) Cholesterol 231 (H) <200 MG/DL [place] Triglycerides 192 <200 MG/DL [place] HDL Cholesterol 51 >35 MG/DL [place] LDL Cholesterol 142 (H) 0 - 130 MG/DL [place] Cholesterol/HDL 4.5 <4.5 [place] Ratio Hours 12 [place] Postprandial Specimen Blood Performing Organization Address [facility] Ph one Number [facility] [address] [place], [place] [address] [place] * Aspartate Aminotransferase (08/15/1998 11:10 AM CDT) Aspartate 59 (H) 20 - 50 IU/L [place] Aminotransferas e Specimen Blood Performing Organization Address [facility] Ph one Number [facility] [address] [place] [address] [place] documented in this encounter Visit Diagnoses Not on filedocumented in this encounter
--- OUTSIDE RECORDS SUMMARY | 2019-07-30 15:21 | XMS REPORT | Encounter Summary ---
Author Author [facility] Address Unknown Phone Unavailable Care Team Providers Care Chairman President And Chief Executive Officer Name Role Phone PCP Unavailable Encounter Details Care Team Description Date Type Department Sara Johnson MD [address] [place] [address] [phone] 03/04/1999 [facility] Encounter [address] [place] [address] Social History Date Tobacco Use Types Packs/Day [...] Diag nosis DIFFERENTIAL Routine 03/04/1999 10:45 AM TALENT SOLUTIONS MANAGER LIPID PANEL Routine 03/04/1999 10:45 AM TALENT SOLUTIONS MANAGER HEPATIC FUNCTION PANEL Routine 03/04/1999 10:45 AM TALENT SOLUTIONS MANAGER CBC AND DIFF (MANUAL DIFF Routine 03/04/1999 IF NECESSARY) 10:45 AM TALENT SOLUTIONS MANAGER BASIC METABOLIC PANEL Routine 03/04/1999 10:45 AM TALENT SOLUTIONS MANAGER documented in this encounter Results * Basic Metabolic Panel (03/04/1999 10:45 AM TALENT SOLUTIONS MANAGER) Sodium 142 134 - 144 MEQ/L [place] [...] MG/DL [facility] Specimen Blood Performing Organization Address [facility] one Number [facility] [address] [place] [address] [place] * Hepatic Function Panel (03/04/1999 10:45 AM TALENT SOLUTIONS MANAGER) Albumin 4.2 3.6 - 4.6 G/DL [place] Bilirubin 0.0 0.0 - 0.3 MG/DL [place] Direct Bilirubin Total 0.3 0.0 - 1.1 MG/DL [place] Alkaline 77 40 - 125 IU/L [place] Phosphatase Alanine 75 (H) 20 - 60 IU/L [place] Aminotransferas e Aspartate 56 (H) 20 - 50 IU/L [place] Aminotransferas e Specimen Blood Performing Organization Address [facility] one Number [facility] [address] [place] [phone] [place] * Lipid Panel (03/04/1999 10:45 AM TALENT SOLUTIONS MANAGER) Cholesterol 191 <200 MG/DL [place] Triglycerides 187 <200 MG/DL [place] HDL Cholesterol 51 >35 MG/DL [place] LDL Cholesterol 103 0 - 130 MG/DL [place] Cholesterol/HDL 3.7 <4.5 [place] Ratio Hours 0 [place] Postprandial Specimen Blood Performing Organization Address [facility] one Number RL [address] [place] [phone] [place] * DIFFERENTIAL (03/04/1999 10:45 AM TALENT SOLUTIONS MANAGER) % Neutrophils 53 45 - 78 % [...] TH/UL [place] Specimen Blood Performing Organization Address [facility] one Number [facility] [address] [place], [place] [address] [place] * CBC and Diff (manual diff if necessary) (03/04/1999 10:45 AM TALENT SOLUTIONS MANAGER) WBC 8.6 4.0 - 11.0 TH/UL [place] [...] Address City/State/Zipcode Ph one Number [facility]RL [address] [place], [place] [address] [place] documented in this encounter Visit Diagnoses Not on filedocumented in this encounter
--- NOTE | 2019-07-30 15:30 | NUR ---
Enoc Orlando admitted to room 418-1, with an admitting diagnosis of chest pain, on 07/30/19 from [facility] via , accompanied by .ENOC ORLANDO introduced to surroundings, call light, bed controls, phone, TV, temperature control, lights, meal times, smoking policy, visitor policy, side rail policy, bathrooms and showers. Patient Rights given to patient in the handbook.ENOC ORLANDO verbalizes understanding that [facility] is not responsible for the loss or damage to any personal effects or valuables that are kept in the patients posession during their hospitalization. ENOC ORLANDO verbalizes understanding of Interdisciplinary Patient Education. Patient and/or family were informed about the Rapid Response Team and its purpose.
[2019-07-30] MEDS ORDERED: TIZA4TAB4 PO (15:52)
--- NOTE | 2019-07-30 15:54 | Diagnostic Imaging Report ---
INDICATION: Chest pain. Patient was administered 5.5 mCi technetium 99m MAA intravenously and imaging over the chest was performed in multiple obliquities. There is homogeneous activity throughout both lungs. No pleural-based perfusion defect is identified. IMPRESSION: Normal perfusion lung scan. Dictated by: Dictated on workstation # [id number]
--- NOTE | 2019-07-30 15:56 | NUR ---
SPOKE WITH THE PT AND WENT THRU THE EXT MED HISTORY TO COMPLETE THE MED REC ALL MEDS ARE LISTED ON THE EXT MED HISTORY CLONAZEPAM 2MG: EXT MED HISTORY SHOWS THE PT CAN TAKING 1 & TABS HS- BUT THE PT SAYS HE ONLY TAKES 1 TAB HS OTC MEDS: ASPIRIN 81MG
[2019-07-30 16:00] VITALS: BP 124/81
[2019-07-30] MEDS ORDERED: MELATONIN 3 MG TABLET PO PRN (16:30)
[2019-07-30] MEDS ORDERED: ENOXAPARIN 40 MG/0.4 ML (LOVENOX) SYR SC SCH (16:30)
[2019-07-30] MEDS ORDERED: ONDANSETRON 4 MG (ZOFRAN) ORAL DISSOLVE TAB PO PRN (16:30)
[2019-07-30] MEDS ORDERED: polyethylene glycoL POWDER 17 GM (MIRALAX) PACK PO PRN (16:30)
[2019-07-30] MEDS ORDERED: ACETAMINOPHEN 325 MG TABLET PO PRN (16:30)
[2019-07-30 17:00] VITALS: BP 117/78
[2019-07-30] MEDS: TAMSULOSIN 0.4 MG (FLOMAX) CAP PO SCH (17:19)
--- NOTE | 2019-07-30 17:55 | Consultation-Cardiology ---
HPI-Cardiology Cardiology Consultation: Date of Consultation 07/30/19 Date of Admission Attending Physician Maranda Cardenas MD Admitting Physician Sharron Parsons DO Consulting Physician Jennifer BERG MD HPI: Time Seen by a Provider: 15:00 Chief Complaint: Chest pain This is a 69-year-old gentleman who I know from my clinic. He has previous history of CAD and PCI. He presented with increasing chest pain that has been off-and-on for the last one week. Chest pain is worse with exertion. Central chest pain with some radiation to the arms. There is occasional palpitations as well. He denies nausea, vomiting. He does have shortness of breath occasionally. He denies active smoking and does not have any pertinent family history. Review of Systems-Cardiology Review of Systems Constitutional: As described under HPI; No As described under HPI, No no symptoms reported, No chills, No fever, No lightheadedness Eyes: No As described under HPI, No no symptoms reported, No blindness, No blurred vision, No contact lenses, No drainage, No decreased acuity, No foreign body sensation, No pain, No vision change Ears/Nose/Throat: No As described under HPI, No no symptoms reported, No chronic hearing loss, No ear discharge, No ear pain, No nasal drainage, No ulcerations Respiratory: No no symptoms reported; As described under HPI; No As described under HPI, No cough, No orthopnea, No shortness of breath, No SOB with excertion Cardiovascular: No no symptoms reported; As described under HPI; No As described under HPI; chest pain; No edema, No irregular heart rate, No lightheadedness, No palpitations Gastrointestinal: No no symptoms reported, No As described under HPI, No abdomen distended, No abdominal pain, No blood streaked bowels, No constipation, No diarrhea, No nausea, No vomiting, No stool coloration changes Genitourinary: No As described under HPI, No burning, No dysuria, No discharge, No frequency, No flank pain, No hematuria, No urgency Skin: No rash, No skin related problems, No ulcerations Psychiatric/Neurological: No anxiety, No depression, No seizure, No focal weakness, No syncope Hematologic: No bleeding abnormalities All Other Systems Reviewed Negative Unless Noted: Yes GIU-Vcijrg-Azvqti Hx Patient Social History Alcohol Use: Denies Use Recreational Drug Use: No Smoking Status: Never a Smoker 2nd Hand Smoke Exposure: No Recent Foreign Travel: No Recent Infectious Disease Expo: No Immunizations Up To Date Tetanus Booster (TDap): Unknown Date of Pneumonia Vaccine: Oct 30, 2014 Date of Influenza Vaccine: Feb 23, 2019 Past Medical History PMH As described under Assessment. Family Medical History Family History: Family history: Cardiovascular disease Family history: Hypertension 03 MOTHER Family history: Osteoporosis 03 MOTHER Stroke 03 FATHER Allergies and Home Medications Allergies Coded Allergies: No Known Drug Allergies (Unverified , 01/16/18) Home Medications Allopurinol 300 Mg Tablet, 300 MG PO DAILY, (Reported) Aspirin 81 Mg Tablet.dr, 81 MG PO DAILY, (Reported) Clonazepam 2 Mg Tablet, 2 MG PO HS, (Reported) Clopidogrel Bisulfate 75 Mg Tablet, 75 MG PO DAILY, (Reported) Finasteride 5 Mg Tablet, 5 MG PO DAILY, (Reported) Gabapentin 400 Mg Capsule, 400 MG PO QID, (Reported) Losartan Potassium 100 Mg Tablet, 100 MG PO DAILY, (Reported) Lovastatin 40 Mg Tablet, 40 MG PO HS, (Reported) Meloxicam 15 Mg Tablet, 15 MG PO DAILY, (Reported) Metoprolol Succinate 50 Mg Tab.er.24h, 50 MG PO DAILY, (Reported) Pantoprazole Sodium 40 Mg Tablet.dr, 40 MG PO DAILY, (Reported) Tamsulosin HCl 0.4 Mg Cap, 0.4 MG PO HS, (Reported) Tizanidine HCl 4 Mg Tablet, 4 MG PO HS, (Reported) Patient Home Medication List Home Medication List Reviewed: Yes Physical Exam-Cardiology Physical Exam Vital Signs/I&O 07/31/19 07/31/19 07/31/19 07/31/19 04:49 07:00 08:00 08:00 Temp 36.4 36.3 Pulse 65 65 66 Resp 18 20 B/P (MAP) 112/75 (87) 134/78 (96) Pulse Ox 97 97 97 O2 Delivery Room Air Room Air Room Air 07/31/19 07/31/19 11:31 12:24 Temp 35.5 Pulse 70 65 Resp 20 B/P (MAP) 122/81 (95) Pulse Ox 97 O2 Delivery Room Air 07/31/19 00:00 Intake Total 640 ml Balance 640 ml Capillary Refill : Less Than 3 Seconds Constitutional: appears stated age, AAO x 3; No apparent distress; well- developed, well-nourished HEENT: PERRL; No discharge; hearing is well preserved, oral hygience is good; No ulceration, No xanthelasmas are seen Neck: No carotid bruit; carotid pulses are 2 + bilaterally Respiratory: chest is bilaterally symmetric, lungs clear to auscultation Cardiovascular: regular rate-rhythm, S1 and S2 Gastrointestinal: soft, audible bowel sounds; No spleenomegaly Rectal: deferred Extremities: normal range of motion, non-tender, normal inspection; No clubbing, No cyanosis, No significant edema Neurologic/Psychiatric: no motor/sensory deficits, alert, normal mood/affect, oriented x 3, power is 5/5 both on sides Skin: No rash, No ulcerations Data Review Labs Laboratory Tests 07/30/19 16:40: 07/30/19 20:32: Glucometer 174H 07/31/19 04:24: White Blood Count 6.0, Red Blood Count 4.38, Hemoglobin 13.6, Hematocrit 41, Mean Corpuscular Volume 93, Mean Corpuscular Hemoglobin 31, Mean Corpuscular Hemoglobin Concent 33, Red Cell Distribution Width 13.8, Platelet Count 165, Mean Platelet Volume 11.1H, Neutrophils (%) (Auto) 46, Lymphocytes (%) (Auto) 40, Monocytes (%) (Auto) 8, Eosinophils (%) (Auto) 5, Basophils (%) (Auto) 1, Neutrophils # (Auto) 2.7, Lymphocytes # (Auto) 2.4, Monocytes # (Auto) 0.5, Eosinophils # (Auto) 0.3, Basophils # (Auto) 0.1, Sodium Level 137, Potassium Level 5.2H, Chloride Level 107, Carbon Dioxide Level 19L, Anion Gap 11, Blood Urea Nitrogen 28H, Creatinine 1.68H, Estimat Glomerular Filtration Rate 41, BUN/Creatinine Ratio 17, Glucose Level 155H, Calcium Level 8.9, Triglycerides Level 222H, Cholesterol Level 191, LDL Cholesterol Direct 128, VLDL Cholesterol 44H, HDL Cholesterol 43 07/31/19 11:27: Glucometer 140H 07/31/19 15:45: Glucometer 185H ECG Impression ECG Initial ECG Rhythm: Normal Sinus Initial ECG Impression: Nonspecific Changes A/P-Cardiology Assessment/Admission Diagnosis Chest pain, Chronic kidney disease, Hyperlipidemia, hypertension, History of CAD/PCI. Plan Chest pain, nuclear stress test tomorrow. If abnormal may require coronary angiography Chronic kidney disease, gentle IV fluids. Hyperlipidemia, statin therapy. hypertension, continue outpatient medical therapy. History of CAD/PCI. Continue outpatient medical therapy. Thank you for your consultation. Please call me if you have any questions. Carlos Berg MD, FACP, FACC, FSCAI, FHRS, CCDS Interventional Cardiology Cardiac Electrophysiology Vascular Medicine and Endovascular Interventions Clinical Quality Measures AMI/AHF: ASA po Prior to arrival: Yes DVT/VTE Risk/Contraindication: Risk Factor Score Per Nursin RFS Level Per Nursing on Admit: 4+=Very High Jennifer BERG MD Jul 30, 2019 17:55
[2019-07-30 18:00] VITALS: BP 135/84
[2019-07-30] MEDS ORDERED: REGADENOSON 0.4 MG/5 ML SYR (LEXISCAN) IV ONE (18:00)
[2019-07-30 20:00] VITALS: BP 132/80
[2019-07-30] MEDS ORDERED: NON-FORMULARY MEDICATION 1 EA EA (Lovastatin 40 MG) PO SCH (21:00)
[2019-07-30] MEDS ORDERED: TAMSULOSIN 0.4 MG (FLOMAX) CAP PO SCH (21:00)
[2019-07-30] MEDS ORDERED: NON-FORMULARY MEDICATION 1 EA EA (Clonazepam 2 MG) PO SCH (21:00)
[2019-07-30] MEDS: inSUlin ASPART (NovoLOG) 1 UNIT/0.01 ML (CHARGE PER UNIT) SC SCH (21:13)
[2019-07-30] MEDS ORDERED: HYDROcodone/APAP 7.5 MG/325 MG (LORTAB, LORCET PLUS) TABLET PO PRN (21:15)
[2019-07-30] MEDS: GABAPENTIN 400 MG (NEURONTIN) CAP PO SCH (21:21)
[2019-07-30] MEDS: SIMvastatin 20 MG (ZOCOR) TAB PO SCH (21:21)
[2019-07-30] MEDS: clonazePAM 1 MG (KlonoPIN) TAB PO SCH (21:21)
[2019-07-30] MEDS: CATHETER FLUSH 10 ML SYR IV SCH (21:22)
[2019-07-31 00:17] VITALS: BP 102/68
[2019-07-31 04:49] VITALS: BP 112/75
[2019-07-31 04:50] LABS: BASOPHILS # (AUTO) 0.1 10^3/uL (0.0-0.1); BASOPHILS % (AUTO) 1 % (0-10); EOSINOPHILS # (AUTO) 0.3 10^3/uL (0.0-0.3); EOSINOPHILS % (AUTO) 5 % (0-10); HEMATOCRIT 41 % (40-54); HEMOGLOBIN 13.6 G/DL (13.3-17.7); LYMPHOCYTES # (AUTO) 2.4 X 10^3 (1.0-4.0); LYMPHOCYTES % (AUTO) 40 % (12-44); MEAN CORPUSCULAR HEMOGLOBIN 31 PG (25-34); MEAN CORPUSCULAR HGB CONC 33 G/DL (32-36); MEAN CORPUSCULAR VOLUME 93 FL (80-99); MEAN PLATELET VOLUME 11.1 FL (7.4-10.4); MONOCYTES # (AUTO) 0.5 X 10^3 (0.0-1.0); MONOCYTES % (AUTO) 8 % (0-12); NEUTROPHILS # (AUTO) 2.7 X 10^3 (1.8-7.8); NEUTROPHILS % (AUTO) 46 % (42-75); PLATELET COUNT 165 10^3/uL (130-400); RED CELL DISTRIBUTION WIDTH 13.8 % (10.0-14.5)
[2019-07-31 05:03] LABS: CALCIUM 8.9 MG/DL (8.5-10.1); CREATININE SERUM 1.68 MG/DL (0.60-1.30); POTASSIUM 5.2 MMOL/L (3.6-5.0)
[2019-07-31] MEDS: inSUlin ASPART (NovoLOG) 1 UNIT/0.01 ML (CHARGE PER UNIT) SC SCH ×4 (05:06→21:28)
[2019-07-31] MEDS: CATHETER FLUSH 10 ML SYR IV SCH ×3 (05:10→21:28)
[2019-07-31 08:00] VITALS: BP 134/78
--- NOTE | 2019-07-31 10:32 | History & Physical-Hospitalist ---
History of Present Illness HPI/Chief Complaint Enoc Mcclellan is a 69-year-old male with past medical history of hypertension, hyperlipidemia, coronary artery disease, BPH, type II diabetes mellitus, GERD, who presented with chest pain with exertion. He reports that the symptoms of been happening for the last couple weeks. He reports that he gets a pressure across his chest with radiation to his shoulders and arm. He denies any nausea, vomiting, or diaphoresis. He denies any dyspnea with exertion. He denies any fevers or chills. He denies any cough. He denies any abdominal pain. He denies any diarrhea. He reports some constipation. He denies any dysuria. Source: patient Exam Limitations: no limitations Date Seen 07/31/19 Time Seen by a Provider: 08:45 Attending Physician Maranda Hudson MD PCP Sharron Parsons DO Referring Physician Date of Admission Jul 30, 2019 at 14:06 Home Medications & Allergies Home Medications Reviewed patient Home Medication Reconciliation performed by pharmacy medication reconciliations rim technician and/or nursing. Patients Allergies have been reviewed. Allergies Allergies Coded Allergies No Known Drug Allergies (Unverified01/16/18) Past Gttuwwt-Uvesqu-Whbzdi Hx Past Med/Social Hx: Reviewed Nursing Past Med/Soc Hx Patient Social History Alcohol Use: Denies Use Recreational Drug Use: No Smoking Status: Never a Smoker 2nd Hand Smoke Exposure: No Recent Foreign Travel: No Contact w/other who traveled: No Recent Hopitalizations: No Recent Infectious Disease Expo: No Immunizations Up To Date Tetanus Booster (TDap): Unknown Date of Pneumonia Vaccine: Oct 30, 2014 Date of Influenza Vaccine: Feb 23, 2019 Seasonal Allergies Seasonal Allergies: Yes Past Medical History Surgeries: Coronary Stent, Orthopedic Currently Using CPAP: No Currently Using BIPAP: No Cardiac: Coronary Artery Disease, High Cholesterol, Hypertension Reproductive: No Sexually Transmitted Disease: No HIV/AIDS: No Genitourinary: Prostate Problems, Kidney Stones Gastrointestinal: Gastroesophageal Reflux, Chronic Constipation, Ulcer Musculoskeletal: Chronic Back Pain Endocrine: Diabetes, Non-Insulin dep Loss of Vision: Bilateral Hearing Impairment: Denies Psychosocial: Depression History of Blood Disorders: No Adverse Reaction to Blood Smith: No (N/A) Family History Reviewed Nursing Family Hx Family history: Cardiovascular disease Family history: Hypertension 03 MOTHER Family history: Osteoporosis 03 MOTHER Stroke 03 FATHER No Pertinent Family Hx Review of Systems Constitutional: no symptoms reported EENTM: no symptoms reported Respiratory: no symptoms reported Cardiovascular: chest pain Gastrointestinal: no symptoms reported Genitourinary: no symptoms reported Musculoskeletal: no symptoms reported Skin: no symptoms reported Psychiatric/Neurological: No Symptoms Reported Physical Exam Physical Exam Vital Signs Vital Signs - First Documented 07/30/19 10:51 Temp 36.6 Pulse 84 Resp 16 B/P (MAP) 155/83 (107) Pulse Ox 96 O2 Delivery Room Air Capillary Refill : Less Than 3 SecondsLess Than 3 Seconds Height, Weight, BMI Height: 6'0.00" Weight: 250lbs. 0.0oz. 113.723022wk; 33.51 BMI Method:Stated General Appearance: No Apparent Distress, Obese HEENT: PERRL/EOMI, Pharynx Normal Neck: Normal Inspection Respiratory: Lungs Clear, Normal Breath Sounds, No Respiratory Distress Cardiovascular: Regular Rate, Rhythm, No Edema, No Murmur Gastrointestinal: Normal Bowel Sounds, Non Tender, Soft Extremity: Normal Inspection, Non Tender, Pedal Edema Neurologic/Psychiatric: Alert, Oriented x3, No Motor/Sensory Deficits, Normal Mood/Affect Skin: Normal Color, Warm/Dry Results Results/Procedures Labs Laboratory Tests 07/30/19 10:54 07/31/19 04:24 Patient resulted labs reviewed. Imaging: Reviewed Imaging Report Assessment/Plan Admission Diagnosis Chest pain Admission Status: Observation Assessment and Plan Chest pain Coronary artery disease Hypertension Hyperlipidemia Troponins remain negative Cardiology consulted, appreciate assistance Planning for myocardial perfusion imaging today Continue aspirin and Plavix for coronary artery disease Continue statin for dyslipidemia Continue losartan and metoprolol for hypertension T2DM Not on any home meds Check A1c Sliding scale insulin BPH Continue Flomax and finasteride GERD Continue PPI DVT Prophylaxis: Lovenox Diagnosis/Problems Diagnosis/Problems (1) Chest pain Status: Acute Qualifiers: Chest pain type: unspecified Qualified Codes: R07.9 - Chest pain, unspecified Clinical Quality Measures AMI/AHF: ASA po Prior to arrival: Yes DVT/VTE Risk/Contraindication: Risk Factor Score Per Nursin RFS Level Per Nursing on Admit: 4+=Very High MARANDA HUDSON MD Jul 31, 2019 10:31
--- NOTE | 2019-07-31 11:30 | NUR ---
pt off floor for stress test
[2019-07-31 11:31] VITALS: BP 122/81
[2019-07-31] MEDS ORDERED: REGADENOSON 0.4 MG/5 ML SYR (LEXISCAN) IV ONE (12:09)
--- NOTE | 2019-07-31 14:00 | NUR ---
PT BACK ON FLOOR. CALL TO LETA YATES TO GIVE MEDS OR HOLD FOR MORE TESTS
--- NOTE | 2019-07-31 14:30 | NUR ---
PER DR. YATES , OK TO GIVE AM MEDS. SLL WERE GIVEN EXCEPT BID MED FOR WHICH IT IS TOO LATE IN THE DAY.
[2019-07-31] MEDS: ALLOPURINOL 300 MG (ZYLOPRIM) TAB PO SCH (14:53)
[2019-07-31] MEDS: ASPIRIN E.C. 81 MG (ECOTRIN) TAB PO SCH (14:54)
[2019-07-31] MEDS: PANTOPRAZOLE 40 MG (PROTONIX) TAB PO SCH (14:54)
[2019-07-31] MEDS: LOSARTAN 100 MG (COZAAR) TABLET PO SCH (14:54)
[2019-07-31] MEDS: CLOPIDOGREL 75 MG (PLAVIX) TABLET PO SCH (14:54)
[2019-07-31] MEDS: meTOproloL SUCCINATE 50 MG (TOPROL XL) TAB PO SCH (14:54)
[2019-07-31] MEDS: GABAPENTIN 400 MG (NEURONTIN) CAP PO SCH ×2 (14:55→21:28)
[2019-07-31] MEDS: ENOXAPARIN 40 MG/0.4 ML (LOVENOX) SYR SC SCH (14:55)
[2019-07-31] MEDS: FINASTERIDE (PROSCAR) 5 MG TAB PO SCH (14:58)
[2019-07-31 15:38] VITALS: BP 150/79
--- NOTE | 2019-07-31 16:30 | Cardiology Progress Note ---
Cardiology SOAP Progress Note Subjective: Mild chest heaviness. Objective: I&O/Vital Signs 07/31/19 07/31/19 07/31/19 07/31/19 04:49 07:00 08:00 08:00 Temp 36.4 36.3 Pulse 65 65 66 Resp 18 20 B/P (MAP) 112/75 (87) 134/78 (96) Pulse Ox 97 97 97 O2 Delivery Room Air Room Air Room Air 07/31/19 07/31/19 11:31 12:24 Temp 35.5 Pulse 70 65 Resp 20 B/P (MAP) 122/81 (95) Pulse Ox 97 O2 Delivery Room Air 07/31/19 00:00 Intake Total 640 ml Balance 640 ml Weight (Pounds): 250 Weight (Ounces): 0.0 Weight (Calculated Kilograms): 113.017209 Constitutional: appears stated age, AAO x 3; No apparent distress; well- developed, well-nourished Respiratory: chest is bilaterally symmetric, lungs clear to auscultation Cardiovascular: regular rate-rhythm, S1 and S2 Gastrointestional: soft, audible bowel sounds; No spleenomegaly Extremities: normal range of motion, non-tender, normal inspection; No clubbing, No cyanosis, No significant edema Neurologic/Psychiatric: no motor/sensory deficits, alert, normal mood/affect, oriented x 3, power is 5/5 both on sides Skin: No rash, No ulcerations Results/Procedures: Labs Laboratory Tests 07/30/19 16:40: 07/30/19 20:32: Glucometer 174H 07/31/19 04:24: White Blood Count 6.0, Red Blood Count 4.38, Hemoglobin 13.6, Hematocrit 41, Mean Corpuscular Volume 93, Mean Corpuscular Hemoglobin 31, Mean Corpuscular Hemoglobin Concent 33, Red Cell Distribution Width 13.8, Platelet Count 165, Mean Platelet Volume 11.1H, Neutrophils (%) (Auto) 46, Lymphocytes (%) (Auto) 40, Monocytes (%) (Auto) 8, Eosinophils (%) (Auto) 5, Basophils (%) (Auto) 1, Neutrophils # (Auto) 2.7, Lymphocytes # (Auto) 2.4, Monocytes # (Auto) 0.5, Eosinophils # (Auto) 0.3, Basophils # (Auto) 0.1, Sodium Level 137, Potassium Level 5.2H, Chloride Level 107, Carbon Dioxide Level 19L, Anion Gap 11, Blood Urea Nitrogen 28H, Creatinine 1.68H, Estimat Glomerular Filtration Rate 41, BUN/Creatinine Ratio 17, Glucose Level 155H, Calcium Level 8.9, Triglycerides Level 222H, Cholesterol Level 191, LDL Cholesterol Direct 128, VLDL Cholesterol 44H, HDL Cholesterol 43 07/31/19 11:27: Glucometer 140H 07/31/19 15:45: Glucometer 185H A/P: Assessment/Dx: Chest pain, Chronic kidney disease, Hyperlipidemia, hypertension, History of CAD/PCI. Plan: Chest pain, nuclear stress test showed at least intermediate size apical lateral reversible defect. I spoke at length to the patient and recommended coronary angiography which will be done tomorrow. Informed consent was taken. Risk of complication is 1-2 percent and was explained to the patient. The patient understands the risk and would like to undergo procedure. Chronic kidney disease, gentle IV fluids. Hyperlipidemia, statin therapy. hypertension, continue outpatient medical therapy. History of CAD/PCI. Continue outpatient medical therapy. Thank you for your consultation. Please call me if you have any questions. Carlos Berg MD, FACP, FACC, FSCAI, FHRS, CCDS Interventional Cardiology Cardiac Electrophysiology Vascular Medicine and Endovascular Interventions Clinical Quality Measures AMI/AHF: ASA po Prior to arrival: Yes Jennifer BERG MD Jul 31, 2019 16:30
--- NOTE | 2019-07-31 16:32 | Cardiology Stress Test Report ---
Stress Test Report Type of NM Stress Test: Test Type: LEXISCAN 0.4MG/5ML Date of Procedure/Referring: Date of Procedure: Jul 31, 2019 PCP Maranda Cardenas MD Admitting Physician Sharron Parsons DO Indications: Chest pain Baseline Heart Rate: 70 Baseline Blood Pressure: Blood Pressure Systolic: 122 Blood Pressure Diastolic: 81 Baseline EKG: Baseline EKG: Sinus rhythm Summary & Conclusion: Summary: The patient was brought to the stress lab after informed consent was taken. Stress test was performed according to the Lexiscan protocol. 0.4 mg of IV Lexiscan was given. Low-grade exercise was performed. Baseline EKG showed sinus rhythm at 70 BPM and blood pressure 152/88 mmHg. Final heart rate 110 bpm and blood pressure 156/81 mmHg. Patient did not have any chest pain, arrhythmias or ST segment changes during the stress test. 9.82 mCi of Myoview were given for rest imaging and 31.5 mCi of Myoview given for stress imaging. Transient ischemic dilatation score 1.17 , EF 48 percent. Normal wall motion. Moderate size apical/lateral reversible defect. SSS 13, SRS 10, SDS 3. Conclusion: Pharmacological stress test was negative for ischemia. Normal LV function with no wall motion abnormalities. Evidence of apical/lateral ischemia. Coronary angiography is recommended. Jennifer YATES MD Jul 31, 2019 16:32
[2019-07-31] MEDS: TAMSULOSIN 0.4 MG (FLOMAX) CAP PO SCH (18:33)
[2019-07-31 20:00] VITALS: BP 138/84
[2019-07-31] MEDS: SIMvastatin 20 MG (ZOCOR) TAB PO SCH (21:28)
[2019-07-31] MEDS: clonazePAM 1 MG (KlonoPIN) TAB PO SCH (21:28)
[2019-08-01] VITALS (15 sets, daily range): BP systolic 99–157; BP diastolic 64–81
[2019-08-01 05:13] LABS: POTASSIUM 5.3 MMOL/L (3.6-5.0)
[2019-08-01 05:14] LABS: CALCIUM 8.8 MG/DL (8.5-10.1); CREATININE SERUM 1.9 MG/DL (0.60-1.30)
[2019-08-01] MEDS: inSUlin ASPART (NovoLOG) 1 UNIT/0.01 ML (CHARGE PER UNIT) SC SCH ×4 (05:42→20:35)
[2019-08-01] MEDS: CATHETER FLUSH 10 ML SYR IV SCH ×2 (06:00→14:00)
[2019-08-01] MEDS ORDERED: LIDOCAINE 1% INJ 20 ML 20 ML VIAL ONE (09:21)
[2019-08-01] MEDS ORDERED: MIDAZOLAM 5 MG/5 ML (VERSED) VIAL ONE (09:21)
[2019-08-01] MEDS ORDERED: HEParin (CATH LAB) 2,000 ML IV ONE (09:22)
[2019-08-01] MEDS ORDERED: NS IV 1000 ML 1,000 ML ONE (09:22)
[2019-08-01] MEDS ORDERED: fentaNYL INJECTION 100 MCG/2 ML AMP ONE (09:22)
[2019-08-01] MEDS: GABAPENTIN 400 MG (NEURONTIN) CAP PO SCH ×2 (09:36→20:05)
[2019-08-01] MEDS: ASPIRIN E.C. 81 MG (ECOTRIN) TAB PO SCH (09:36)
[2019-08-01] MEDS: FINASTERIDE (PROSCAR) 5 MG TAB PO SCH (09:36)
[2019-08-01] MEDS: PANTOPRAZOLE 40 MG (PROTONIX) TAB PO SCH (09:36)
[2019-08-01] MEDS: ALLOPURINOL 300 MG (ZYLOPRIM) TAB PO SCH (09:36)
[2019-08-01] MEDS: CLOPIDOGREL 75 MG (PLAVIX) TABLET PO SCH (09:36)
[2019-08-01] MEDS: LOSARTAN 100 MG (COZAAR) TABLET PO SCH (09:37)
[2019-08-01] MEDS: meTOproloL SUCCINATE 50 MG (TOPROL XL) TAB PO SCH (09:38)
[2019-08-01] MEDS: ENOXAPARIN 40 MG/0.4 ML (LOVENOX) SYR SC SCH (09:52)
--- NOTE | 2019-08-01 10:00 | NUR ---
TO HEART CATH PER BED.
[2019-08-01] MEDS ORDERED: NS IV 1000 ML 1,000 ML IV SCH (10:30)
[2019-08-01] MEDS ORDERED: HEParin 1000 UNIT/ML (10ML VIAL) FOR BOLUS ONE (10:44)
[2019-08-01] MEDS ORDERED: NITRO DRIP 25000 MCG/D5W 0 ML IV ONE (10:44)
[2019-08-01] MEDS ORDERED: CLOPIDOGREL 300 MG (PLAVIX) TABLET PO ONE (10:46)
--- NOTE | 2019-08-01 10:50 | Progress Note - Hospitalist ---
Subjective HPI/CC On Admission Date Seen by Provider: Aug 01, 2019 Time Seen by Provider: 08:20 Enoc Mcclellan is a 69-year-old male with past medical history of hypertension, hyperlipidemia, coronary artery disease, BPH, type II diabetes mellitus, GERD, who presented with chest pain with exertion. He reports that the symptoms of been happening for the last couple weeks. He reports that he gets a pressure across his chest with radiation to his shoulders and arm. He denies any nausea, vomiting, or diaphoresis. He denies any dyspnea with exertion. He denies any fevers or chills. He denies any cough. He denies any abdominal pain. He denies any diarrhea. He reports some constipation. He denies any dysuria. Subjective/Events-last exam He reports some continued chest pain this morning. He denies any shortness of breath. He denies any fevers or chills. He denies any nausea or vomiting. He denies any abdominal pain. Objective Exam Vital Signs Vital Signs Date Time Temp Pulse Resp B/P (MAP) Pulse Ox O2 Delivery O2 Flow Rate FiO2 08/01/19 08:00 Room Air 08/01/19 08:00 36.4 64 20 111/71 (84) 95 Capillary Refill : Less Than 3 SecondsLess Than 3 Seconds General Appearance: No Apparent Distress, Obese Respiratory: Lungs Clear, Normal Breath Sounds, No Respiratory Distress Cardiovascular: Regular Rate, Rhythm, No Murmur Gastrointestinal: Normal Bowel Sounds, Non Tender, Soft Extremity: Normal Inspection, Non Tender, Pedal Edema Neurologic/Psychiatric: Alert, Oriented x3, No Motor/Sensory Deficits, Normal Mood/Affect Skin: Normal Color, Warm/Dry Results/Procedures Lab Laboratory Tests 08/01/19 04:25 Patient resulted labs reviewed. Imaging: Reviewed Imaging Report Assessment/Plan Assessment and Plan Assess & Plan/Chief Complaint Chest pain Coronary artery disease Hypertension Hyperlipidemia Cardiology consulted, appreciate assistance Stress tests performed yesterday, recommended cardiac catheterization Planning for left heart catheterization today Continue aspirin and Plavix for coronary artery disease Continue statin for dyslipidemia Continue losartan and metoprolol for hypertension T2DM Not on any home meds A1c 7.5 percent Sliding scale insulin Consider starting home medication on discharge BPH Continue Flomax and finasteride GERD Continue PPI DVT Prophylaxis: Lovenox Diagnosis/Problems Diagnosis/Problems (1) Chest pain Status: Acute Qualifiers: Chest pain type: unspecified Qualified Codes: R07.9 - Chest pain, unspecified Clinical Quality Measures AMI/AHF: ASA po Prior to arrival: Yes DVT/VTE Risk/Contraindication: Risk Factor Score Per Nursin RFS Level Per Nursing on Admit: 4+=Very High GERARDO HUDSON MD Aug 01, 2019 10:50
[2019-08-01] MEDS ORDERED: TICAGRELOR 90 MG TABLET (BRILINTA) PO ONE (11:46)
--- NOTE | 2019-08-01 11:51 | Cardiology Progress Note ---
Cardiology SOAP Progress Note Subjective: No chest pain. Objective: I&O/Vital Signs 08/01/19 08/01/19 08/01/19 08/01/19 00:00 01:00 04:00 07:00 Temp 36.4 36.1 Pulse 66 65 65 66 Resp 20 18 B/P (MAP) 99/65 (76) 99/64 (76) Pulse Ox 97 97 O2 Delivery Room Air Room Air 08/01/19 08/01/19 08:00 08:00 Temp 36.4 Pulse 64 Resp 20 B/P (MAP) 111/71 (84) Pulse Ox 95 O2 Delivery Room Air Room Air 08/01/19 00:00 Intake Total 550 ml Balance 550 ml Weight (Pounds): 250 Weight (Ounces): 0.0 Weight (Calculated Kilograms): 113.224441 Constitutional: appears stated age, AAO x 3; No apparent distress; well- developed, well-nourished Respiratory: chest is bilaterally symmetric, lungs clear to auscultation Cardiovascular: regular rate-rhythm, S1 and S2 Gastrointestional: soft, audible bowel sounds; No spleenomegaly Extremities: normal range of motion, non-tender, normal inspection; No clubbing, No cyanosis, No significant edema Neurologic/Psychiatric: no motor/sensory deficits, alert, normal mood/affect, oriented x 3, power is 5/5 both on sides Skin: No rash, No ulcerations Results/Procedures: Labs Laboratory Tests 07/31/19 15:45: Glucometer 185H 07/31/19 20:47: Glucometer 143H 08/01/19 04:25: Sodium Level 138, Potassium Level 5.3H, Chloride Level 107, Carbon Dioxide Level 17L, Anion Gap 14, Blood Urea Nitrogen 31H, Creatinine 1.90H, Estimat Glomerular Filtration Rate 35, BUN/Creatinine Ratio 16, Glucose Level 178H, Calcium Level 8.8 A/P: Assessment/Dx: Chest pain, abnormal nuclear stress test with reversible ischemia. Chronic kidney disease, Hyperlipidemia, hypertension, History of CAD/PCI. Plan: Chest pain, nuclear stress test showed at least intermediate size distal anterior, apical, lateral reversible defect. Coronary angiography showed severe subtotal stenosis of the mid LAD which was treated successfully with a drug- eluting stent. A stent in mid to distal OM1 is occluded with organized thrombus in the proximal segment to the stent. We tried with numerous wires but were not able to cross it. The patient is not having any chest pain, negative serial troponin and with left to left and [id number] collaterals; and since we had already given 130 mL of contrast and with his creatinine of 1.9, we decided to stop. We will continue to treat with aggressive medical therapy and if the patient still has worsening chest pain we may consider MANAGER [employer] intervention with Dr. Rivera in [place]. I will change Plavix to Brilinta. Chronic kidney disease, gentle IV fluids. Hyperlipidemia, statin therapy. hypertension, continue outpatient medical therapy. History of CAD/PCI. Continue outpatient medical therapy. Thank you for your consultation. Please call me if you have any questions. Carlos Berg MD, FACP, FACC, FSCAI, FHRS, CCDS Interventional Cardiology Cardiac Electrophysiology Vascular Medicine and Endovascular Interventions Clinical Quality Measures AMI/AHF: ASA po Prior to arrival: Yes Jennifer BERG MD Aug 01, 2019 11:51
--- NOTE | 2019-08-01 12:00 | NUR ---
Patient arrived to room ICU4. alert and oriented on room air. VSS. Heart cath insertion site to right groin, mynx in place, gauze and tegaderm over site. Right groin site is soft, dressing is clean, dry and intact. Right groin is free from bruising and redness att. Patient denies pain. liquid offered but patient declined. this nurse educated patient on physicians order for bedrest. Patient agreed. Will continue to closely monitor.
--- NOTE | 2019-08-01 12:02 | Coronary Angiography & PCI ---
Coronary Angiography & PCI DATE OF PROCEDURE: 08/01/19 INDICATION: Worsening chest pain, abnormal nuclear stress test, previous history of CAD/PCI. PREOPERATIVE DIAGNOSIS: Worsening chest pain, abnormal nuclear stress test, previous history of CAD/PCI. POSTOPERATIVE DIAGNOSIS: 1. Severe subtotal stenosis of the mid LAD treated successfully with a drug-eluting stent. 2. Occluded OM1 stent, unsuccessful PCI. HISTORY: This is a 69-year-old gentleman with history of diabetes and chronic kidney disease. His creatinine is 1.9. He presents with worsening chest pain. Negative serial troponin. I performed a nuclear stress test which showed distal anterior, apical and lateral reversible defect. Therefore, the patient was joce eduled for coronary angiography. PROCEDURES PERFORMED: 1.Coronary angiography. 2.Left heart catheterization. 3.PCI to the mid LAD with drug-eluting stent. COMPLICATIONS: None. SPECIMENS: None. ESTIMATED BLOOD LOSS: 10 mL ANESTHESIA: Conscious sedation ANTICOAGULATION: IV heparin CONTRAST: 140 mL. FLUOROSCOPY: 17.6 mgy. FLOUROSCOPY DOSE: 1971 mgy. PROCEDURE DETAILS: The patient is a 69 male and was brought to the [facility] after informed consent was taken. All the risks and complications were explained in detail; this included the risk of bleeding, vascular damage, stroke, RI and even . The patient was draped and prepped in the usual sterile fashion. Access could not be gained in the right radial artery due to abnormal Felipe's test. Access was gained in the right femoral artery with a 6 [place] sheath. Coronary angiography and left heart catheterization was performed with a JR4 and JL4 catheter. FINDINGS: 1.Left main: Patent. 2.LAD: Severe subtotal stenosis of the mid LAD. Stenosis severity 99 percent with MARY GRACE 2 flow distally. This stenotic segment is in between 2 stents that have mild to moderate in-stent restenosis. 3.Left circumflex artery: Occluded stent in the OM 1 with organized thrombus proximal to the stent. Left to left and khjpt-[id number]-[id number] collaterals. 4.RCA: Mild diffuse disease. Moderate disease distally. Mild in-stent restenosis in the distal RCA stent. 5.Left heart catheterization: LV gram was not done due to creatinine of 1.9. LV pressure 124/2 mmHg. LVEDP 9 mmHg. Aortic pressure 134/71 mmHg. No gradient across the aortic valve. RECOMMENDATIONS: 1. PCI to mid LAD is recommended. 2. PCI to occluded OM1 stent is recommended. INTERVENTION DETAILS: EBU 3.5 guide catheter, whisper extra-support guidewire, heparin IV for ant icoagulation. ACT was over 200. Patient received 75 mg of Plavix this morning. I gave another 300 mg of Plavix before the PCI. At the end of the procedure we switched to 90 mg of Brilinta. With the whisper wire we were able to track through the organized thrombus with difficulty however we were not able to cross the occluded stent. At that point in time I had tried quite a few times and we had already given 90 mL of contrast, therefore I decided to pull back the whisper wire and crossed the lesion in the LAD and performed direct stenting with a science Flory 2.75 x 15 mm stent at 18 rosalio for 37 seconds. The patient complained of significant chest burning and 6 beats of nonsustained VT. That resolved as soon as the balloon was deflated. The overlap area with the stent distally and stent proximally was postdilated at 18 rosalio with the same stent balloon. In the stent in the mid LAD there is moderate in-stent restenosis which was treated with the same stent balloon at 18 rosalio. Excellent results with no residue stenosis and MARY GRACE-3 flow. We then took out the whisper extra-support guidewire and went in with the BMW wire into the OM 1. We knuckled the BMW wire but were still not able to cross the occlusion. We left that BMW wire in place and took another BMW wire and without knuckling the tip, tried to cross the occluded segment but we were not able to. Since the patient was not having any chest pain, this is likely a subacute phenomenon in the last few weeks with left to left and [id number] collaterals and negative serial troponin, also we had used 140 mL of contrast with a creatinine of 1.9 we decided to stop. The wires were taken out and post-angiogram did not show any vascular complication. The right femoral artery was closed with a minx device. CONCLUSIONS: 1. Severe subtotal stenosis of the mid LAD in between 2 previous stents which was treated successfully with a drug-eluting stent overlapping with previous 2 stents. Excellent results. 2. Unsuccessful PCI to a occluded OM1 stent which has organized thrombus proximal to the stent and behaves like a chronic total occlusion with left to left, [id number]-[id number] collaterals. 3. We will change Plavix to Brilinta. Aggressive medical therapy. If the patient continues to have worsening chest pain we may consider sending him for a [facility] intervention to Dr. Rivera in [place]. 4. Generous IV fluids to avoid contrast-induced nephropathy. Carlos Berg MD, FACP, FACC, [facility] Interventional Cardiology Jennifer BERG MD Aug 01, 2019 12:02
[2019-08-01] MEDS ORDERED: PATIENT MAY USE OWN MEDS, ALL PO SCH (12:15)
--- NOTE | 2019-08-01 16:15 | NUR ---
This nurse called report to Ol[facility], 4th floor.
--- NOTE | 2019-08-01 17:00 | NUR ---
TRANSFERRED FROM ICU TO ROOM 418. ALERT AND COOPERATIVE. SKIN W/D. RESP. REGULAR. RIGHT GROIN WITH GAUZE AND OP-SITE D/I WITH NO DRAINAGE NOTED. DENIES DISCOMFORT AT THIS TIME.
--- NOTE | 2019-08-01 17:25 | NUR ---
patient transferred to room 418 by this nurse via bed
[2019-08-01] MEDS: TAMSULOSIN 0.4 MG (FLOMAX) CAP PO SCH (18:18)
[2019-08-01] MEDS: NS IV 1000 ML 1,000 ML IV SCH ×2 (18:18→20:36)
[2019-08-01] MEDS: clonazePAM 1 MG (KlonoPIN) TAB PO SCH (20:05)
[2019-08-01] MEDS: TICAGRELOR 90 MG TABLET (BRILINTA) PO SCH (20:06)
[2019-08-01] MEDS: SIMvastatin 20 MG (ZOCOR) TAB PO SCH (20:06)
[2019-08-02 00:05] VITALS: BP 113/73
[2019-08-02 04:15] VITALS: BP 126/78
[2019-08-02 05:59] LABS: HEMOGLOBIN 12.7 G/DL (13.3-17.7); MEAN PLATELET VOLUME 10.9 FL (7.4-10.4); RED CELL DISTRIBUTION WIDTH 13.9 % (10.0-14.5); WHITE BLOOD COUNT 5.7 10^3/uL (4.3-11.0)
[2019-08-02 06:27] LABS: CALCIUM 8.5 MG/DL (8.5-10.1); CREATININE SERUM 1.77 MG/DL (0.60-1.30); POTASSIUM 4.8 MMOL/L (3.6-5.0)
[2019-08-02] MEDS: inSUlin ASPART (NovoLOG) 1 UNIT/0.01 ML (CHARGE PER UNIT) SC SCH ×2 (06:36→11:45)
[2019-08-02] MEDS: NS IV 1000 ML 1,000 ML IV SCH (06:51)
[2019-08-02 08:00] VITALS: BP 130/86
[2019-08-02] MEDS ORDERED: TICA90TA PO (08:14)
[2019-08-02] MEDS: TICAGRELOR 90 MG TABLET (BRILINTA) PO SCH (08:49)
[2019-08-02] MEDS: ASPIRIN E.C. 81 MG (ECOTRIN) TAB PO SCH (08:49)
[2019-08-02] MEDS: PANTOPRAZOLE 40 MG (PROTONIX) TAB PO SCH (08:50)
[2019-08-02] MEDS: CLOPIDOGREL 75 MG (PLAVIX) TABLET PO SCH (08:50)
[2019-08-02] MEDS: LOSARTAN 100 MG (COZAAR) TABLET PO SCH (08:51)
[2019-08-02] MEDS: FINASTERIDE (PROSCAR) 5 MG TAB PO SCH (08:51)
[2019-08-02] MEDS: meTOproloL SUCCINATE 50 MG (TOPROL XL) TAB PO SCH (08:51)
[2019-08-02] MEDS: ALLOPURINOL 300 MG (ZYLOPRIM) TAB PO SCH (08:51)
[2019-08-02] MEDS: GABAPENTIN 400 MG (NEURONTIN) CAP PO SCH (08:51)
[2019-08-02] MEDS ORDERED: ASPIRIN E.C. 81 MG (ECOTRIN) TAB PO SCH (09:00)
--- NOTE | 2019-08-02 09:01 | Discharge Summary ---
Discharge Summary Hospital Course Was the Problem List Reviewed?: Yes Problems/Dx: (1) Coronary artery disease Qualifiers: Qualified Codes: I25.118 - Atherosclerotic heart disease of [place] coronary artery with other forms of angina pectoris (2) S/P coronary artery stent placement Status: Acute (3) Chest pain Status: Resolved Qualifiers: Qualified Codes: R07.9 - Chest pain, unspecified Hospital Course Date of Admission: Jul 30, 2019 at 14:06 Admission Diagnosis : Chest pain Family Physician/Provider: Sharron Fuller DO Date of Discharge: 08/02/19 Discharge Diagnosis: Coronary artery disease status post coronary artery stent placement Hospital Course: Enoc Mcclellan is a 69-year-old male with history of coronary artery disease and coronary artery stenting who presented with chest pain. His troponin and EKG remained normal. He underwent a stress test and a cardiac catheterization was recommended. He underwent left heart catheterization which revealed a mid LAD occlusion between 2 previously placed stents. Another overlapping stent was placed at the site of the occlusion. There is another occlusion at the OM1 but intervention was unsuccessful. He was transitioned from Plavix to Brilinta. If his chest pain continues, the plan is to refer him to Dr. Monroe in [place] for high-risk percutaneous coronary intervention. He should follow-up with his primary care doctor in about a week. He will follow up with cardiology as scheduled. Labs and Pending Lab Test: Laboratory Tests 08/01/19 16:24: Glucometer 212H 08/01/19 20:34: Glucometer 147H 08/02/19 04:20: Glucometer 181H 08/02/19 05:40: White Blood Count 5.7, Red Blood Count 4.17L, Hemoglobin 12.7L, Hematocrit 39L, Mean Corpuscular Volume 94, Mean Corpuscular Hemoglobin 30, Mean Corpuscular Hemoglobin Concent 33, Red Cell Distribution Width 13.9, Platelet Count 146, Mean Platelet Volume 10.9H, Sodium Level 138, Potassium Level 4.8, Chloride Level 110H, Carbon Dioxide Level 18L, Anion Gap 10, Blood Urea Nitrogen 28H, Creatinine 1.77H, Estimat Glomerular Filtration Rate 38, BUN/Creatinine Ratio 16, Glucose Level 162H, Calcium Level 8.5 Microbiology 08/01/19 MRSA Screen - Final, Complete MRSA not isolated Home Meds Active Brilinta (Ticagrelor) 90 Mg Tablet 90 Mg PO BID 30 Days Reported Tizanidine HCl 4 Mg Tablet 4 Mg PO HS Plavix (Clopidogrel Bisulfate) 75 Mg Tablet 75 Mg PO DAILY Pantoprazole Sodium 40 Mg Tablet.dr 40 Mg PO DAILY Allopurinol 300 Mg Tablet 300 Mg PO DAILY Finasteride 5 Mg Tablet 5 Mg PO DAILY Lovastatin 40 Mg Tablet 40 Mg PO HS Meloxicam 15 Mg Tablet 15 Mg PO DAILY Losartan Potassium 100 Mg Tablet 100 Mg PO DAILY Clonazepam 2 Mg Tablet 2 Mg PO HS Gabapentin 400 Mg Capsule 400 Mg PO QID Flomax (Tamsulosin HCl) 0.4 Mg Cap 0.4 Mg PO HS Aspir 81 (Aspirin) 81 Mg Tablet.dr 81 Mg PO DAILY Metoprolol Succinate 50 Mg Tab.er.24h 50 Mg PO DAILY Assessment/Pt Instructions Take medications as prescribed. Switched from Plavix to Brilinta. Follow-up with Dr. Berg. Discharge Planning: <30 minutes discharge planning Discharge Instructions Discharge Diet: Low Sodium Diet Activity as Tolerated: Yes Discharge Physical Examination Vital Signs Vital Signs Date Time Temp Pulse Resp B/P (MAP) Pulse Ox O2 Delivery O2 Flow Rate FiO2 08/02/19 07:00 63 08/02/19 04:15 36.3 18 126/78 (94) 98 Room Air General Appearance: No Apparent Distress, Obese Respiratory: Lungs Clear, Normal Breath Sounds, No Respiratory Distress Cardiovascular: Regular Rate, Rhythm, No Edema, No Murmur Gastrointestinal: Normal Bowel Sounds, Non Tender, Soft Extremity: Normal Inspection, Non Tender, No Pedal Edema Skin: Normal Color, Warm/Dry Neurologic/Psychiatric: Alert, Oriented x3, No Motor/Sensory Deficits, Normal Mood/Affect Allergies: Coded Allergies: No Known Drug Allergies (Unverified , 01/16/18) Copy Copies To 1: SHARRON FULLER DO Discharge Summary Date of Admission Jul 30, 2019 at 14:06 Date of Discharge Discharge Date: Aug 02, 2019 Discharge Time: 09:00 Admission Diagnosis Chest pain Discharge Diagnosis Coronary artery disease with coronary artery stenting (1) Chest pain Status: Resolved Qualifiers: Qualified Codes: R07.9 - Chest pain, unspecified Clinical Quality Measures AMI/AHF: ASA po Prior to arrival: Yes DVT/VTE Risk/Contraindication: Risk Factor Score Per Nursin RFS Level Per Nursing on Admit: 4+=Very High GERARDO HUDSON MD Aug 02, 2019 08:59
[2019-08-02] MEDS: ENOXAPARIN 40 MG/0.4 ML (LOVENOX) SYR SC SCH (09:59)
--- NOTE | 2019-08-02 11:58 | Cardiology Progress Note ---
Cardiology SOAP Progress Note Subjective: No cardiac complaints. Objective: I&O/Vital Signs 08/02/19 08/02/19 08/02/19 08/02/19 00:05 00:48 04:15 07:00 Temp 37.0 36.3 Pulse 69 75 69 63 Resp 18 18 B/P (MAP) 113/73 (86) 126/78 (94) Pulse Ox 97 98 O2 Delivery Room Air Room Air 08/02/19 08/02/19 08:00 09:13 Temp 36.2 Pulse 71 Resp 20 B/P (MAP) 130/86 (101) Pulse Ox 97 97 O2 Delivery Room Air Room Air 08/02/19 00:00 Intake Total 1440 ml Output Total 250 ml Balance 1190 ml Weight (Pounds): 250 Weight (Ounces): 0.0 Weight (Calculated Kilograms): [id number] Constitutional: appears stated age, AAO x 3; No apparent distress; well- developed, well-nourished Respiratory: chest is bilaterally symmetric, lungs clear to auscultation Cardiovascular: regular rate-rhythm, S1 and S2 Gastrointestional: soft, audible bowel sounds; No spleenomegaly Extremities: normal range of motion, non-tender, normal inspection; No clubbing, No cyanosis, No significant edema Neurologic/Psychiatric: no motor/sensory deficits, alert, normal mood/affect, oriented x 3, power is 5/5 both on sides Skin: No rash, No ulcerations Results/Procedures: Labs Laboratory Tests 08/01/19 16:24: Glucometer 212H 08/01/19 20:34: Glucometer 147H 08/02/19 04:20: Glucometer 181H 08/02/19 05:40: White Blood Count 5.7, Red Blood Count 4.17L, Hemoglobin 12.7L, Hematocrit 39L, Mean Corpuscular Volume 94, Mean Corpuscular Hemoglobin 30, Mean Corpuscular Hemoglobin Concent 33, Red Cell Distribution Width 13.9, Platelet Count 146, Mean Platelet Volume 10.9H, Sodium Level 138, Potassium Level 4.8, Chloride Lev el 110H, Carbon Dioxide Level 18L, Anion Gap 10, Blood Urea Nitrogen 28H, Creatinine 1.77H, Estimat Glomerular Filtration Rate 38, BUN/Creatinine Ratio 16, Glucose Level 162H, Calcium Level 8.5 08/02/19 10:56: Glucometer 144H Microbiology 08/01/19 MRSA Screen - Final, Complete MRSA not isolated A/P: Assessment/Dx: Chest pain, abnormal nuclear stress test with reversible ischemia. Chronic kidney disease, Hyperlipidemia, hypertension, History of CAD/PCI. Plan: Chest pain, nuclear stress test showed at least intermediate size distal anterior, apical, lateral reversible defect. Coronary angiography showed severe subtotal stenosis of the mid LAD which was treated successfully with a drug-eluting stent. A stent in mid to distal OM1 is occluded with organized thrombus in the proximal segment to the stent. We tried with numerous wires but were not able to cross it. The patient is not having any chest pain, negative serial troponin and with left to left and [id number] collaterals; and since we had already given 130 mL of contrast and with his creatinine of 1.9, we dec ided to stop. We will continue to treat with aggressive medical therapy and if the patient still has worsening chest pain we may consider [facility] intervention with Dr. Rivera in [place]. I will change Plavix to Brilinta. Chronic kidney disease, gentle IV fluids. Improved creatinine. Hyperlipidemia, statin therapy. hypertension, continue outpatient medical therapy. History of CAD/PCI. Continue outpatient medical therapy. dc today and follow up in 6-8 weeks. Thank you for your consultation. Please call me if you have any questions. Carlos Berg MD, FACP, FACC, FSCAI, FHRS, CCDS Interventional Cardiology Cardiac Electrophysiology Vascular Medicine and Endovascular Interventions Clinical Quality Measures AMI/AHF: ASA po Prior to arrival: Yes Jennifer BERG MD Aug 02, 2019 11:58
[2019-08-02 12:00] VITALS: BP 136/85
[2019-08-02 14:45] VITALS: BP 136/85
== END 2019-08-02 14:45 | disposition home or self-care (01) ==
LOC: EDUNIT# 10:47 → ER 10:48 → 4TH 14:06 → ICU 08-01 11:58 → 4TH 08-01 16:19
PROVIDERS: ADMIT Internal Medicine; ATTEND Internal Medicine
DX: I25.118 Atherosclerotic heart disease of native coronary artery with other forms of angina pectoris (principal); E78.5 Hyperlipidemia, unspecified; I12.9 Hypertensive chronic kidney disease with stage 1 through stage 4 chronic kidney disease, or unspecified chronic kidney disease; E11.22 Type 2 diabetes mellitus with diabetic chronic kidney disease; N18.9 Chronic kidney disease, unspecified; N40.0 Benign prostatic hyperplasia without lower urinary tract symptoms; K21.9 Gastro-esophageal reflux disease without esophagitis; E78.00 Pure hypercholesterolemia, unspecified; K59.09 Other constipation; F32.9 Major depressive disorder, single episode, unspecified; G89.29 Other chronic pain; M54.9 Dorsalgia, unspecified; Z82.3 Family history of stroke; Z79.02 Long term (current) use of antithrombotics/antiplatelets; Z79.82 Long term (current) use of aspirin; Z79.899 Other long term (current) drug therapy; Z79.891 Long term (current) use of opiate analgesic; Z95.5 Presence of coronary angioplasty implant and graft; Z79.84 Long term (current) use of oral hypoglycemic drugs
CPT/HCPCS: 36415; 71045; 78452; 80048; 80053; 80061; 82962; 83036; 83735; 83874; 83880; 84484; 85025; 85027; 85379; 85610; 85730; 87081; 93005; 93017; 93041; 93458; 93970; 96372; G0378

== ENCOUNTER 2020-02-07 06:59 | Emergency (ER) | payer MEDICARE ==
[~2020-02-07] VITALS: Ht 185 cm; Wt 110.0 kg
[~2020-02-07 06:59] MED LIST changes: +METF-865 PO; -METF500T19 PO; -PANT40TA3 PO; +PANT40TA52 PO; +TIZA4TAB4 PO
[2020-02-07] MEDS ORDERED: NS IV 500 ML 500 ML IV ONE (07:31)
[2020-02-07 07:38] LABS: BASOPHILS # (AUTO) 0.1 10^3/uL (0.0-0.1); BASOPHILS % (AUTO) 1 % (0-10); EOSINOPHILS # (AUTO) 0.3 10^3/uL (0.0-0.3); EOSINOPHILS % (AUTO) 4 % (0-10); HEMATOCRIT 39 % (40-54); HEMOGLOBIN 12.5 g/dL (13.3-17.7); LYMPHOCYTES # (AUTO) 1.8 10^3/uL (1.0-4.0); LYMPHOCYTES % (AUTO) 25 % (12-44); MEAN CORPUSCULAR HEMOGLOBIN 31 pg (25-34); MEAN CORPUSCULAR HGB CONC 32 g/dL (32-36); MEAN CORPUSCULAR VOLUME 97 fL (80-99); MEAN PLATELET VOLUME 10.9 fL (9.0-12.2); MONOCYTES # (AUTO) 0.5 10^3/uL (0.0-1.0); MONOCYTES % (AUTO) 7 % (0-12); NEUTROPHILS # (AUTO) 4.4 10^3/uL (1.8-7.8); NEUTROPHILS % (AUTO) 63 % (42-75); PLATELET COUNT 191 10^3/uL (130-400); WHITE BLOOD COUNT 7.1 10^3/uL (4.3-11.0)
[2020-02-07 07:43] LABS: BILIRUBIN,URINE NEGATIVE (NEGATIVE); CLARITY,URINE CLEAR; COLOR,URINE YELLOW; GLUCOSE, URINE (UA) NEGATIVE (NEGATIVE); KETONES,URINE NEGATIVE (NEGATIVE); LEUKOCYTE ESTERASE ,URINE NEGATIVE (NEGATIVE); NITRITE,URINE NEGATIVE (NEGATIVE); PROTEIN,URINE NEGATIVE (NEGATIVE)
[2020-02-07 07:44] LABS: POTASSIUM 4.5 MMOL/L (3.6-5.0)
--- NOTE | 2020-02-07 07:44 | ED GI ---
General Chief Complaint: Blood in stool Stated Complaint: BLOOD IN STOOL Source of Information: Patient Exam Limitations: No Limitations (GEORGE LOGAN,MED STUDENT) History of Present Illness Date Seen by Provider: Feb 07, 2020 Time Seen by Provider: 07:07 Initial Comments 69yo male presents to the ED with a c/o of painless bloody stools that started at 0600 today. He reports having 2 stools of "straight blood" with no form or consistency. He denies having any similar or previous episodes of bloody stools and he denies having any abdominal pain. He reports eating peanuts last night and having a history of diverticulosis seen on his colonoscopy 2yrs ago. He denies having any constitutional symptoms or abdominal pain Timing/Duration: 1-3 Hours Activities at Onset: Sleeping Associated Symptoms: Denies Symptoms (GEORGE LOGAN,MED STUDENT) Allergies and Home Medications Allergies Coded Allergies: No Known Drug Allergies (Unverified , 01/16/18) Home Medications Allopurinol 300 Mg Tablet, 300 MG PO DAILY, (Reported) Aspirin 81 Mg Tablet.dr, 81 MG PO DAILY, (Reported) Clonazepam 2 Mg Tablet, 2 MG PO HS, (Reported) Finasteride 5 Mg Tablet, 5 MG PO DAILY, (Reported) Gabapentin 400 Mg Capsule, 400 MG PO QID, (Reported) Losartan Potassium 100 Mg Tablet, 100 MG PO DAILY, (Reported) Lovastatin 40 Mg Tablet, 40 MG PO HS, (Reported) Meloxicam 15 Mg Tablet, 15 MG PO DAILY, (Reported) Metoprolol Succinate 50 Mg Tab.er.24h, 50 MG PO DAILY, (Reported) Pantoprazole Sodium 40 Mg Tablet.dr, 40 MG PO DAILY, (Reported) Tamsulosin HCl 0.4 Mg Cap, 0.4 MG PO HS, (Reported) Ticagrelor 90 Mg Tablet, 90 MG PO BID Prescribed by: GERARDO HUDSON on 08/02/19 0814 Tizanidine HCl 4 Mg Tablet, 4 MG PO HS, (Reported) Patient Home Medication List Home Medication List Reviewed: Yes (SHIRA MILLARD MD) Review of Systems Review of Systems Constitutional: No chills, No fever, No malaise, No weakness Respiratory: Denies Cough, Denies Shortness of Air, Denies SOA With Exertion Cardiovascular: Denies Chest Pain, Denies Edema, Denies Irregular Heart Rate, Denies Lightheadedness, Denies Palpitations, Denies Syncope Gastrointestinal: Denies Abdomen Distended, Denies Abdominal Pain; Blood Streaked Stools; Denies Constipated; Diarrhea; Denies Difficulty Swallowing, Denies Nausea, Denies Poor Appetite, Denies Poor Fluid Intake; Rectal Bleeding; Denies Vomiting Psychiatric/Neurological: Anxiety; Denies Depressed, Denies Emotional Problems (GEORGE LOGAN MED STUDENT) Musculoskeletal: back pain (chronic low back pain); No muscle pain Skin: change in color (few scattered ecchymotic lesions to the arms); No rash Psychiatric/Neurological: Denies Anxiety, Denies Weakness (SHIRA MILLARD MD) Past Dynkanx-Urfmgy-Xanexi Hx Past Med/Social Hx: Reviewed Nursing Past Med/Soc Hx (SHIRA MILLARD MD) Patient Social History Alcohol Use: Denies Use Recreational Drug Use: No Smoking Status: Never a Smoker 2nd Hand Smoke Exposure: No Recent Foreign Travel: No Contact w/Someone Who Travel: No Recent Hopitalizations: No (GEORGE LOGAN MED STUDENT) Immunizations Up To Date Tetanus Booster (TDap): Unknown Date of Pneumonia Vaccine: Oct 30, 2014 Date of Influenza Vaccine: Feb 23, 2019 (GEORGE LOGAN MED STUDENT) Seasonal Allergies Seasonal Allergies: Yes (GEORGE LOGAN MED STUDENT) Past Medical History Surgeries: Yes (lumbar fusion L2-S1 06/07/08, lumbar disk removed 1985) Coronary Stent, Orthopedic Respiratory: Yes Sleep Apnea Currently Using CPAP: No Currently Using BIPAP: No Cardiac: Yes (STENTS) Coronary Artery Disease, High Cholesterol, Hypertension Neurological: Yes (arachnoiditis causing frequent cramping, gastroparesis) Reproductive Disorders: No Sexually Transmitted Disease: No HIV/AIDS: No Prostate Problems, Kidney Stones Gastrointestinal: Yes (gastroparesis) Gastroesophageal Reflux, Chronic Constipation, Ulcer Musculoskeletal: Yes Chronic Back Pain Endocrine: Yes Diabetes, Non-Insulin dep Loss of Vision: Bilateral Hearing Impairment: Denies Cancer: No Psychosocial: Yes Depression Integumentary: No Blood Disorders: No Adverse Reaction/Blood Tranf: No (N/A) (GEORGE LOGAN MED STUDENT) Family Medical History Reviewed Nursing Family Hx (SHIRA MILLARD MD) Family history: Cardiovascular disease Family history: Hypertension 03 MOTHER Family history: Osteoporosis 03 MOTHER Stroke 03 FATHER No Pertinent Family Hx (LOGAN,GEORGE,MED STUDENT) Physical Exam Vital Signs Vital Signs - First Documented 02/07/20 07:00 Temp 35.6 Pulse 81 Resp 16 B/P (MAP) 134/89 (104) Pulse Ox 100 O2 Delivery Room Air (SHIRA MILLARD MD) Vital Signs Capillary Refill : (GEORGE LOGAN,MED STUDENT) Height/Weight/BMI Height: 6'0.00" Weight: 250lbs. 0.0oz. [id number]; 33.51 BMI Method:Stated General Appearance: WD/WN, no apparent distress, obese HEENT: PERRL/EOMI; No scleral icterus (R), No scleral icterus (L), No pale conjunctivae (R), No pale conjunctivae (L) Respiratory: chest non-tender, lungs clear, normal breath sounds, no respiratory distress, no accessory muscle use Cardiovascular: regular rate, rhythm, no edema, no gallop, no JVD Peripheral Pulses: 2+ Radial Pulses (R), 2+ Radial Pulses (L) Gastrointestinal: soft, no organomegaly, no pulsatile mass, tenderness (with deep palpatin in the LLQ ) Rectal: blood streaked stool, heme positive stool, other Neurologic/Psychiatric: alert, normal mood/affect, oriented x 3 (GEORGE LOGAN,MED STUDENT) General Appearance: WD/WN, no apparent distress Respiratory: lungs clear, normal breath sounds Cardiovascular: regular rate, rhythm, no murmur Gastrointestinal: soft, no pulsatile mass, other (nontender on exam currently without rebound or guarding) Extremities: non-tender, no pedal edema Neurologic/Psychiatric: alert, oriented x 3 Skin: warm/dry, ecchymosis (few scattered lesions to both arms) (SHIRA ALMANZA MD) Progress/Results/Core Measures Results/Orders Lab Results Laboratory Tests Test 02/07/20 07:15 Range/Units White Blood Count 7.1 4.3-11.0 10^3/uL Red Blood Count 4.05 L 4.30-5.52 10^6/uL Hemoglobin 12.5 L 13.3-17.7 g/dL Hematocrit 39 L 40-54 % Mean Corpuscular Volume 97 80-99 fL Mean Corpuscular Hemoglobin 31 25-34 pg Mean Corpuscular Hemoglobin Concent 32 32-36 g/dL Red Cell Distribution Width 13.2 10.0-14.5 % Platelet Count 191 130-400 10^3/uL Mean Platelet Volume 10.9 9.0-12.2 fL Immature Granulocyte % (Auto) 0 % Neutrophils (%) (Auto) 63 42-75 % Lymphocytes (%) (Auto) 25 12-44 % Monocytes (%) (Auto) 7 0-12 % Eosinophils (%) (Auto) 4 0-10 % Basophils (%) (Auto) 1 0-10 % Neutrophils # (Auto) 4.4 1.8-7.8 10^3/uL Lymphocytes # (Auto) 1.8 1.0-4.0 10^3/uL Monocytes # (Auto) 0.5 0.0-1.0 10^3/uL Eosinophils # (Auto) 0.3 0.0-0.3 10^3/uL Basophils # (Auto) 0.1 0.0-0.1 10^3/uL Immature Granulocyte # (Auto) 0.0 0.0-0.1 10^3/uL Urine Color YELLOW Urine Clarity CLEAR Urine pH 6.0 5-9 Urine Specific Louin 1.015 L 1.016-1.022 Urine Protein NEGATIVE NEGATIVE Urine Glucose (UA) NEGATIVE NEGATIVE Urine Ketones NEGATIVE NEGATIVE Urine Nitrite NEGATIVE NEGATIVE Urine Bilirubin NEGATIVE NEGATIVE Urine Urobilinogen 0.2 < = 1.0 MG/DL Urine Leukocyte Esterase NEGATIVE NEGATIVE Urine RBC (Auto) NEGATIVE NEGATIVE Urine RBC 0-2 /HPF Urine WBC 0-2 /HPF Urine Squamous Epithelial Cells 0-2 /HPF Urine Crystals NONE /LPF Urine Bacteria TRACE /HPF Urine Casts NONE /LPF Urine Mucus NEGATIVE /LPF Urine Culture Indicated NO Sodium Level 140 135-145 MMOL/L Potassium Level 4.5 3.6-5.0 MMOL/L Chloride Level 111 H 98-107 MMOL/L Carbon Dioxide Level 18 L 21-32 MMOL/L Anion Gap 11 5-14 MMOL/L Blood Urea Nitrogen 32 H 7-18 MG/DL Creatinine 1.71 H 0.60-1.30 MG/DL Estimat Glomerular Filtration Rate 40 BUN/Creatinine Ratio 19 Glucose Level 211 H 70-105 MG/DL Calcium Level 8.7 8.5-10.1 MG/DL Corrected Calcium 8.7 8.5-10.1 MG/DL Total Bilirubin 0.5 0.1-1.0 MG/DL Aspartate Amino Transf (AST/SGOT) 10 5-34 U/L Alanine Aminotransferase (ALT/SGPT) 9 0-55 U/L Alkaline Phosphatase 78 40-136 U/L Troponin I < 0.028 <0.028 NG/ML C-Reactive Protein High Sensitivity 0.36 0.00-0.50 MG/DL Total Protein 6.9 6.4-8.2 GM/DL Albumin 4.0 3.2-4.5 GM/DL (SHIRA MILLARD MD) My Orders Orders - SHIRA MILLARD MD Cbc With Automated Diff (02/07/20 07:31) Comprehensive Metabolic Panel (02/07/20 07:31) Hs C Reactive Protein (02/07/20:31) Type And Screen (02/07/20 07:31) Ed Iv/Invasive Line Start (02/07/20 07:31) Ns Iv 500 Ml (Sodium Chloride 0.9%) (02/07/20 07:31) Fecal Occult Bedside (02/07/20 07:31) Ekg Tracing (02/07/20 07:31) Ua Culture If Indicated (02/07/20 07:38) Ct Abdomen/Pelvis Wo (02/07/20 08:20) Troponin I (02/07/20 08:20) (SHIRA MILLARD MD) Medications Given in ED Current Medications Medications Dose Ordered Sig/Kamari Route Start Time Stop Time Status Last Admin Dose Admin Sodium Chloride 500 ml @ 0 mls/hr Q0M ONCE IV 02/07/20 07:31 02/07/20 07:34 DC 02/07/20 07:40 500 MLS/HR (SHIRA MILLARD MD) Vital Signs/I&O 02/07/20 07:00 Temp 35.6 Pulse 81 Resp 16 B/P (MAP) 134/89 (104) Pulse Ox 100 O2 Delivery Room Air (SHIRA MILLARD MD) Progress Progress Note : Progress Note I have seen and evaulated patient. He is a 69yo who presented with painless bloody stool per rectum. Patient has a history of diverticulosis seen on colonscopy done by Dr. Rollins. At this time Diverticulosis is the most likely cause based on history and presentation. Workup includes, CBC, CMP, EKG, Gu[place] stool, and abdominal CT. Have given 500mL bolus of NS. (GEORGE LOGAN,MED STUDENT) Progress Note : Progress Note I have seen and evaluated the patient and agree with above except as indicated. I have directed the plan of care. Patient is here with a few episodes of blood per rectum this morning. First stool was moderately bloody and then has improved since. He did have small diarrhea stool here that was reported to have a little blood in it. It was guaiac positive. Patient states that it's actually better now. Had some left lower quadrant pain earlier but that's better now. Reports that he's had a can of peanuts over the past few days and thinks that may be the cause of this. He is diabetic and states sugars are usually well controlled but he did cheat a little yesterday and his blood sugars might be up some. Primary care physician is Dr. Fuller and has seen Dr. Rollins in the past for colonoscopy. Workup as above. We did add EKG and troponin as patient states that he has intermittent left arm pain but he thinks he actually bruised it. Does have cardiac history so we will check appropriately. Monitor patient. 1012: No return of bloody stools. Overall feels better. CT does show diverticulosis and this is likely exacerbated by his diet. We did discuss light diet for the next day or 2 as well as follow-up with his primary care doctor and recommended following back up with Dr. Rollins. I will give him information for both. Discharged home with return precautions. Patient verbalize understanding instructions and agreement with plan. (SHIRA MILLARD MD) Diagnostic Imaging Diagonstic Imaging: CT Plain Films/CT/US/NM/MRI: abdomen, pelvis Comments [facility] [place], [place] NAME: DAMON ORLANDO [facility] REC#: [id number] PT STATUS: REG ER : 1950 PHYSICIAN: SHIRA MILLARD MD ADMIT DATE: 02/07/20/ER Draft Date of Exam:02/07/20 CT ABDOMEN/PELVIS WO PROCEDURE: CT abdomen and pelvis without contrast. TECHNIQUE: Multiple contiguous axial images were obtained through the abdomen and pelvis without the use of intravenous contrast. Auto Exposure Controls were utilized during the CT exam to meet ALARA standards for radiation dose reduction. INDICATION: Rectal bleeding. Study compared 12/30/2017 FINDINGS: There are scattered colonic diverticuli but there were no findings of diverticulitis. Portions of the left colon is not well distended limiting its evaluation but no identifiable colonic wall thickening and no pericolonic edema. No intra or retroperitoneal hemorrhage. There is no free air. There is no bowel obstruction. This patient has renal cortical and parapelvic cysts bilaterally, greater left, chronic. There is nonobstructing calculi within the left lower pole calyx. There is no hydroureteronephrosis. There is a fatty umbilical hernia noninflamed. Liver and bile ducts unremarkable. There are likely tiny stones layering dependently within the gallbladder which appeared otherwise normal. Spleen, adrenals, and pancreas negative. Postoperative changes to the lumbar spine with a fluid collection within the laminectomy bed, chronic. IMPRESSION: Noninflamed colonic and sigmoid diverticulosis. No focal inflammatory process. Renal cyst and nonobstructing stones, probable cholelithiasis, an acute appearing abnormality is not identified. Dictated on workstation # [id number] Dict: 02/07/20 0933 Trans: 02/07/20 0941 [facility] [id number] Interpreted by: BRANDON HADDAD Electronically signed by: (SHIRA MILLARD MD) Departure Impression Primary Impression: Diverticulosis large intestine w/o perforation or abscess w/bleeding Disposition: 01 HOME, SELF-CARE Condition: Stable Departure-Patient Inst. Referrals: RINKU FULLER DO (PCP/Family) Primary Care Physician CORNELIUS ROLLINS MD Patient Instructions: Gastrointestinal Bleeding (DC), Diverticulosis (DC) Add. Discharge Instructions: Clear liquid a light diet for the next 24 hours and then advance as tolerated. Avoid hard to digest foods such as meat, cheese, milk or spicy foods. Follow-up with your doctor for recheck and further evaluation and follow-up with Dr. Rollins for recheck and further evaluation including colonoscopy if indicated. Return for worse pain, fever, vomiting, weakness, breathing problems, bleeding from your bottom or blood in your stools or other concerns as needed. Copy Copies To 1: RINKU FULLER DO Copies To 2: CORNELIUS ROLLINS MD, MICAH,MED STUDENT Feb 07, 2020 07:44 SHIRA MILLARD MD Feb 07, 2020 08:40
[2020-02-07 07:45] LABS: CALCIUM 8.7 MG/DL (8.5-10.1)
[2020-02-07 07:46] LABS: TOTAL PROTEIN 6.9 GM/DL (6.4-8.2)
[2020-02-07 07:48] LABS: BILIRUBIN,TOTAL 0.5 MG/DL (0.1-1.0)
[2020-02-07 07:50] LABS: CREATININE SERUM 1.71 MG/DL (0.60-1.30)
[2020-02-07 07:58] LABS: BACTERIA,URINE TRACE /HPF; RBC,URINE 0-2 /HPF; SQUAMOUS EPITHELIAL CELL,UR 0-2 /HPF; WBC,URINE 0-2 /HPF
--- NOTE | 2020-02-07 09:41 | Diagnostic Imaging Report ---
PROCEDURE: CT abdomen and pelvis without contrast. TECHNIQUE: Multiple contiguous axial images were obtained through the abdomen and pelvis without the use of intravenous contrast. Auto Exposure Controls were utilized during the CT exam to meet ALARA standards for radiation dose reduction. INDICATION: Rectal bleeding. Study compared 12/30/2017 FINDINGS: There are scattered colonic diverticuli but there were no findings of diverticulitis. Portions of the left colon is not well distended limiting its evaluation but no identifiable colonic wall thickening and no pericolonic edema. No intra or retroperitoneal hemorrhage. There is no free air. There is no bowel obstruction. This patient has renal cortical and parapelvic cysts bilaterally, greater left, chronic. There is nonobstructing calculi within the left lower pole calyx. There is no hydroureteronephrosis. There is a fatty umbilical hernia noninflamed. Liver and bile ducts unremarkable. There are likely tiny stones layering dependently within the gallbladder which appeared otherwise normal. Spleen, adrenals, and pancreas negative. Postoperative changes to the lumbar spine with a fluid collection within the laminectomy bed, chronic. IMPRESSION: Noninflamed colonic and sigmoid diverticulosis. No focal inflammatory process. Renal cyst and nonobstructing stones, probable cholelithiasis, an acute appearing abnormality is not identified. Dictated by: Dictated on workstation # [id number]
--- NOTE | 2020-02-07 09:58 | NUR ---
RESTING IN BED ET DENIES NEEDS. STATES HE HAS BEEN IN CONTACT WITH HIS FAMILY AND DOES NOT NEED US TO CONTACT FAMILY FOR HIM.
--- NOTE | 2020-02-07 10:02 | NUR ---
IN TALKING TO THE PT AT THIS TIME.
[2020-02-07 10:31] VITALS: BP 127/78
== END 2020-02-07 10:31 | disposition home or self-care (01) ==
LOC: EDUNIT# 06:59 → ER 07:01
DX: K57.31 Diverticulosis of large intestine without perforation or abscess with bleeding (principal); I25.10 Atherosclerotic heart disease of native coronary artery without angina pectoris; E78.00 Pure hypercholesterolemia, unspecified; I10 Essential (primary) hypertension; E11.43 Type 2 diabetes mellitus with diabetic autonomic (poly)neuropathy; K31.84 Gastroparesis; K21.9 Gastro-esophageal reflux disease without esophagitis; F32.9 Major depressive disorder, single episode, unspecified; Z82.49 Family history of ischemic heart disease and other diseases of the circulatory system; Z79.82 Long term (current) use of aspirin; Z95.5 Presence of coronary angioplasty implant and graft
CPT/HCPCS: 36415; 74176; 80053; 81000; 82274; 84484; 85025; 86141; 86850; 86900; 86901; 93005